=== PATIENT | male | born 1955 | race Caucasian/White ===

== ENCOUNTER → 2022-02-01 | Outpatient (CLI) | payer MEDICARE ==
[2022-02-01 14:42] LABS: Partial Thromboplastin Time 23.9 sec (22.0-30.0)
--- NOTE | 2022-02-01 15:23 | XR ---
EXAMINATION TYPE: XR chest 2V DATE OF EXAM: 02/01/2022 COMPARISON: Chest x-ray 02/17/2012 HISTORY: Z01.818 TECHNIQUE: Frontal and lateral views of the chest are obtained. FINDINGS: Question asymmetric increased apical density superolaterally on the left. There is no pleur al effusion or pneumothorax seen. The cardiac silhouette size is within normal limits. Increased alex ng volumes may be indicative of underlying COPD. Blunting of the costophrenic angles is thought likel y to be due to hyperinflation. Aorta is dense. There is a spinal curvature. There is thoracic spondyl osis. The osseous structures are intact. IMPRESSION: Question some abnormal density in the left upper lobe, patient is rotated. Consider ches t CT for better evaluation.
[2022-02-01 18:18] LABS: Appearance,Urine Clear (Clear); Bilirubin,Urine Negative (Negative); Blood,Urine Negative (Negative); Color,Urine Yellow (Yellow); Ketones,Urine Negative (Negative); Nitrite,Urine Negative (Negative); Specific Gravity,Urine 1.009 (1.001-1.030); Urobilinogen,Urine 0.2 (0.2,1.0)
[2022-02-01 18:26] LABS: Bacteria,Urine None Seen /HPF (None Seen)
[2022-02-01 18:51] LABS: African American GFR (CKD) 113.7 (60.0-200.0); Albumin 4.4 g/dL (3.8-4.9); Anion Gap 10.7 mmol/L (10.00-18.00); BUN/Creat Ratio 21.39 Ratio (12.00-20.00); Blood Urea Nitrogen 14.8 mg/dL (9.0-27.0); Calcium 9.7 mg/dL (8.7-10.3); Carbon Dioxide 23.7 mmol/L (20.0-27.5); Globulin 2.2 g/dL (1.6-3.3); Non-African American GFR(CKD) 98.1 (60.0-200.0); Potassium 5.2 mmol/L (3.5-5.5); Total Bilirubin 0.2 mg/dL (0.30-1.20); Total Protein 6.5 g/dL (6.2-8.2)
[2022-02-01 19:13] LABS: Basophils # (A) 0.04 X 10*3/uL (0.00-0.10); Basophils % (A) 0.6 %; Eosinophils # (A) 0.33 X 10*3/uL (0.04-0.35); Eosinophils % (A) 4.7 %; HCT 39.8 % (39.6-50.0); HGB 13.3 g/dL (13.0-17.0); Immature Grans, Automated 0.3 %; Lymphocytes # (A) 0.75 X 10*3/uL (0.90-5.00); Lymphocytes % (A) 10.6 %; MCH 32.1 pg (27.0-32.0); MCHC 33.4 g/dL (32.0-37.0); MCV 96.1 fL (80.0-97.0); Mean Platelet Volume 9.7 fL (9.5-12.2); Monocytes # (A) 0.51 X 10*3/uL (0.20-1.00); Monocytes % (A) 7.2 %; NRBC Per 100 WBC 0 /100 WBCS (0.0-0.0); Neutrophils % (A) 76.6 %; Platelet Count 316 X 10*3/uL (140-440); RBC 4.14 X 10*6/uL (4.40-5.60); RDW 12.8 % (11.5-14.5); WBC 7.05 X 10*3/uL (4.50-10.00)
[2022-02-01 22:25] LABS: INR 0.9 (<1.2); Prothrombin Time 9.7 sec (9.0-12.0)
== END | disposition home or self-care (01) ==
LOC: LABPAT 13:23
PROVIDERS: ATTEND Orthopaedic Surgery Orthopaedic Surgery of the Spine
DX: Z01.818 Encounter for other preprocedural examination (principal); I49.1 Atrial premature depolarization; M47.814 Spondylosis without myelopathy or radiculopathy, thoracic region
CPT/HCPCS: 71046; 80053; 81001; 85025; 85610; 85730; 93005

== ENCOUNTER 2022-02-09 06:52 | Observation (INO) | payer MEDICARE ==
[2022-02-04 10:57] VITALS: BMI 21.9
[~2022-02-09 06:52] MED LIST: ceFAZolin 1,000 MG in SODIUM CHLORIDE 0.9% IRRIGATIO 1,000 ML IRRIGATION PRN
[2022-02-09] MEDS ORDERED: ONDANSETRON 4 MG/2 ML VIAL IVP ONE (07:06)
[2022-02-09] MEDS ORDERED: DEXAMETHASONE SOD PHOSPHATE 4 MG/ML 1 ML VIAL IV ONE (07:06)
[2022-02-09] MEDS ORDERED: LIDOCAINE 1% (10MG/ML) FOR IV START INTRADERMA PRN (07:06)
[2022-02-09] MEDS: LACTATED RINGERS 1,000 ML IV SCH (07:15)
[2022-02-09 07:32] LABS: Glucose,Whole Blood 149 mg/dL (70-110)
[2022-02-09] MEDS ORDERED: GLYCOPYRROLATE 0.2 MG/ML 2 ML VIAL ONE (07:51)
[2022-02-09] MEDS ORDERED: PHENYLEPHRINE-0.9% NACL SYG 1,000 MCG/10 ML SYRINGE ONE (07:51)
[2022-02-09] MEDS ORDERED: MIDAZOLAM 2 MG/2 ML VIAL ONE (07:51)
[2022-02-09] MEDS ORDERED: LIDOCAINE 4% LTA KIT (4 ML) TOPICAL ONE (07:51)
[2022-02-09] MEDS ORDERED: SUCCINYLCHOLINE CHLORIDE 200 MG/10 ML VIAL IV ONE (07:51)
[2022-02-09] MEDS ORDERED: LIDOCAINE 2% INJ 20 MG/ML (2 ML VIAL) ONE (07:51)
[2022-02-09] MEDS ORDERED: KETAMINE 10 MG/ML 20 ML VIAL ONE (07:51)
[2022-02-09] MEDS ORDERED: NEOSTIGMINE 1 MG/ML 10 ML VIAL ONE (07:51)
[2022-02-09] MEDS ORDERED: ROCURONIUM 10 MG/ML (5 ML VIAL) IV ONE (07:51)
[2022-02-09] MEDS ORDERED: DEXAMETHASONE SOD PHOSPHATE 10 MG/ML 1 ML VIAL ONE (07:51)
[2022-02-09] MEDS ORDERED: fentaNYL (PF) 50 MCG/ML 2 ML AMP ONE (07:51)
[2022-02-09] MEDS ORDERED: ePHEDrine 50 MG/ML 1 ML VIAL ONE (07:51)
[2022-02-09] MEDS ORDERED: PROPOFOL 10 MG/ML 20 ML VIAL IV ONE (07:51)
[2022-02-09] MEDS ORDERED: BUPIVACAIN-EPI 0.25%-1:200,000 30 ML VIAL SQ ONE (08:26)
[2022-02-09] MEDS ORDERED: LACTATED RINGERS 1,000 ML IV ONE (09:09)
--- NOTE | 2022-02-09 09:18 | XR ---
Cervical spine HISTORY: Needle placement Single lateral view of the cervical spine were no comparisons Multilevel spondylosis is present, there is loss of disc height at intervertebral levels. Bone minera lization is reduced. Cervical vertebral bodies show preserved height, near anatomic alignment. Facet arthropathy changes present. There is a needle present within the C3-4 disc space. Endotracheal tube is in place. Entire cervical spine is not included on exam. IMPRESSION: Orthopedic localization.
[2022-02-09] MEDS: HYDROmorphone 0.5 MG/0.5 ML SYRINGE IVP PRN ×5 (10:15→23:19)
[2022-02-09] MEDS ORDERED: MAGNESIUM HYDROXIDE 2,400 MG/10 ML CUP PO PRN (10:23)
[2022-02-09] MEDS ORDERED: CYCLOBENZAPRINE 10 MG TAB PO PRN (10:23)
[2022-02-09] MEDS ORDERED: BENZOCAINE/MENTHOL LOZENG 1 EACH LOZENGE MUCOUS MEM PRN (10:23)
[2022-02-09] MEDS ORDERED: ONDANSETRON 4 MG/2 ML VIAL IVP PRN (10:23)
[2022-02-09] MEDS ORDERED: HYDROcodone/APAP 5-325MG 1 EACH TAB PO PRN (10:25)
--- NOTE | 2022-02-09 10:30 | P.OP ---
Date of Procedure: 02/09/22 Preoperative Diagnosis: Cervical myelopathy, severe cervical stenosis C3 4 C4 5, upper extremity weakness, upper extremity radiculopathy, gait abnormality, degenerative disc disease Postoperative Diagnosis: Same Anesthesia: GETA Pathology: none sent Condition: stable Disposition: PACU Description of Procedure: BRIEF OPERATIVE NOTE Preoperative Diagnosis:Cervical myelopathy, cervical myelomalacia, severe cervical stenosis C3 4 C4 5, upper extremity weakness, upper extremity radiculopathy, gait abnormality, degenerative disc disease Postoperative Diagnosis:Cervical myelopathy, cervical myelomalacia severe cervical stenosis C3 4 C4 5, upper extremity weakness, upper extremity radiculopathy, gait abnormality, degenerative disc disease Procedure: Anterior cervical decompression with discectomy and fusion C3 4 C4 5 Placement of interbody graft C3 4 C4 5 Application of anterior cervical plate C3 4 and 5 Surgeon: Dr. Key Director Learning: Jones Pathak is present throughout the entire the case persistence during positioning, dissection, exposure, visualization, and all crucial elements of the case as well as closure. Anesthesia: General anesthesia Estimated blood loss: Approximately 50 mL Complications: None apparent Components implanted: K2M Nobles anterior cervical plate system with a 40 mm plate and 6 screws measuring 14 mm, with Vikos interbody bone grafts and 1 mL DBX bone putty Disposition: To recovery room in good stable condition. OPERATIVE INDICATIONS The patient has had long-standing issues in their neck and upper extremities. He's been having worsening symptoms in the past several months. The patient has been through conservative treatment. We saw him and felt that he had evidence of cervical myelopathy with his severe cervical stenosis primarily stemming from the changes at C34 and C4 5. I felt that he could have some benefit with surgical intervention for his cervical spine to decompress his spinal cord and stabilize his vertebrae. He has multiple levels of degenerative changes but I felt that the most severe issues stem from C3 4 and C4 5. We discussed various treatment options including surgery, and the patient wishes to proceed with surgery We discussed the risk, patient's alternatives and benefits of surgery including but not limited to, risk of bleeding risk of infection, risk of need for further surgery, risk of decreased, loss of motion, muscle function, malunion nonunion, hardware failure, nerve damage, paralysis, heart attack, and . OPERATIVE SUMMARY After discussing all the risks, patient alternatives and benefits at length, the patient elected to proceed with surgical intervention, signed informed consent, and presented for their procedure. The patient was seen and examined in the preoperative holding area and the surgical site was marked. The patient was given antibiotics and brought to the operating room. The patient was positioned on the operating room table in a supine position being careful to pad any bony prominences and pressure points. The patient was sedated and intubated by anesthesia in standard fashion. Once the airway and C- spine were stabilized the patient's arms were padded and tucked at her side, with her shoulders gently taped. The head was placed in a donut pad with the neck in good neutral alignment and position. We were careful to maintain the patient's cervical spine and good neutral alignment and position throughout. The patient was prepped and draped in a normal standard fashion. An appropriate timeout and keystone protocol performed. We were able to proceed with the surgery. The local wound area was infiltrated with local anesthetic. An incision was made transversely approximately 2-1/2 cm over the appropriate levels at C4. Dissection was taken down subcutaneously to the level of the platysma which was split in line with its fibers. Dissection was taken with a carotid approach, with the trachea and esophagus medial and the carotid sheath laterally. We dissected down to the anterior surface of the vertebral bodies. Intraoperative x-ray was taken which showed a marker at the appropriate level of C3 4. With the appropriate level positively confirmed, we were able to proceed with discectomy at the appropriate levels starting at C3 4 and then moving C4 5. All of the operative levels were exposed appropriately. The patient had all their twitches back, and there was no evidence of recurrent laryngeal issue. The wound was copiously irrigated and suctioned dry as had been done periodically throughout the case. At the appropriate level/levels, starting at C3 4 and then moving C4 5 I established an annulotomy with an 11 blade scalpel. A discectomy was performed with a combination of pituitary rongeurs, curettes, a high-speed bur, and Kerrison rongeurs. The posterior longitudinal ligament was taken down as were any posterior osteophytes. This gave good central and bilateral foraminal decompression. There is no evidence of any dural tear or leak. The endplates were prepared with a high-speed bur. With the endplates in good parallel position, I was able to size for the appropriate size interbody graft. The wound was irrigated and suctioned dry the graft was prepared and malleted into position. It had good alignment and position with the anterior surface flush with the anterior surface of the vertebral bodies. This was done similarly the appropriate levels first at C3 4 and then at C4 5. With the grafts intact, I was able to measure and contour and appropriate sized plate. The plate was positioned at the midline over the appropriate levels at C3 4 and 5. Screw holes were established with a hand drill and drill guide. Screws were placed in good alignment and position with excellent bony purchase. They were seated under the locking device. The construct was checked and found to be stable. Intraoperative x-ray was taken which showed good alignment and position of the implants at the appropriate levels. There was no evidence of any dural tear or leak. Good hemostasis was maintained. The wound was copiously irrigated and suctioned dry as had been done periodically throughout the case. The platysma was closed with absorbable suture. The subcutaneous tissue was closed. The subcuticular tissue was closed with absorbable suture. The wound was cleaned and dried and dressed appropriately. A soft cervical collar was placed appropriately. The patient was woken up by anesthesia, extubated, transferred back gently to their hospital bed and brought to the recovery room in good stable condition. The patient will be admitted to the hospital for appropriate postoperative care, medical management and monitoring. We will continue to follow them closely about the postoperative course.
--- NOTE | 2022-02-09 13:56 | XR ---
Cervical spine HISTORY: Hardware placement Single lateral view the cervical spine submitted, and correlated to prior exam 02/09/2022 earlier time There is interval anterior cervical fusion and discectomy at C3-C5. Intervertebral spacing blocks are present. Lower cervical spine not well seen due to overlying soft tissue. Endotracheal tube is in pl cesia. There are overlying artifacts. Difficult to state with certainty as to where the placement of th e screws is at C5 possibly at or towards the disc at C5-6. Facet arthropathy changes are present. The re is satisfactory alignment. IMPRESSION: Orthopedic follow-up as described, CT could be performed to assess for screw placement as indicated
[2022-02-09] MEDS ORDERED: SODIUM CHLORIDE 0.9% 1,000 ML IV ONE (14:00)
[2022-02-09] MEDS: SODIUM CHLORIDE 0.9% 1,000 ML IV SCH (14:32)
[2022-02-09] MEDS: IPRATROPIUM-ALBUTEROL 3 ML NEB INHALATION SCH ×3 (14:33→20:17)
[2022-02-09] MEDS: FLUTICASONE 110 MCG INHALER INHALATION SCH (20:17)
[2022-02-09] MEDS ORDERED: ATORVASTATIN 10 MG TAB PO SCH (21:00)
[2022-02-09] MEDS: allopurinoL 100 MG TAB PO SCH (21:37)
[2022-02-10] MEDS: HYDROcodone/APAP 5-325MG 1 EACH TAB PO PRN ×2 (01:36→13:42)
[2022-02-10] MEDS: HYDROmorphone 0.5 MG/0.5 ML SYRINGE IVP PRN (03:29)
[2022-02-10] MEDS: SODIUM CHLORIDE 0.9% 1,000 ML IV SCH (03:33)
[2022-02-10] MEDS: FLUTICASONE 110 MCG INHALER INHALATION SCH (07:51)
[2022-02-10] MEDS: IPRATROPIUM-ALBUTEROL 3 ML NEB INHALATION SCH ×2 (07:51→11:19)
[2022-02-10] MEDS ORDERED: lisinopriL 10 MG TAB PO SCH (09:00)
[2022-02-10] MEDS ORDERED: amLODIPine 10 MG TAB PO SCH (09:00)
[2022-02-10] MEDS ORDERED: VIT A,C & E-LUTEIN-MINERALS 1 EACH TAB PO SCH (09:00)
[2022-02-10] MEDS ORDERED: FERROUS SULFATE 325 MG TAB PO SCH (09:00)
[2022-02-10] MEDS: allopurinoL 100 MG TAB PO SCH (10:44)
[2022-02-10 11:28] VITALS: PULSE 76
--- NOTE | 2022-02-10 11:52 | P.DS ---
Providers Date of admission: 02/10/22 07:37 Attending physician: Omari Key Primary care physician: Osiris Garcia [facility] Course: The patient presented on the day of admission as per their operative note. He had severe cervical stenosis with cervical myelopathy at cervical spine but feels that his surgery has helped his pain and some of his function in his arms already. He has been able to tolerate soft diet and he has been mobile in his room and voiding freely. Physical Exam The incision site is clean dry and intact. There is no erythema no drainage. There is no purulence no evidence of infection. His neck is soft and supple there is some bruising. Abdomen soft and nontender. Chest has good excursion with deep inspiration and expiration. The patient has active and passive range of motion intact at the upper and lower extremities. There is no acute change in neurologic status. He is able to move his hands to have some global weakness in his upper extremities Hospital Course Postoperative day #1 status was anterior cervical discectomy with decompression and fusion C34 C4 5 for his cervical myelopathy with severe cervical stenosis and upper extremity weakness. The patient feels he is making good progress and has some improved strength and function in his arms already. The patient has been making good progress postoperatively. They have completed the prophylactic antibiotics without any signs or symptoms of infection. The patient has been able to advance their diet, and is tolerating diet adequately. The pain was initially controlled with IV medications and is now controlled appropriately with oral medications. The patient has been able to increase their mobilization. The patient has progressed appropriately. I think they are in good stable condition for discharge today. They will be sent home with appropriate prescriptions. I answered their questions to the best of my ability in a language that they can understand and they are agreeable with the plan. They will follow up as directed in approximately 2 weeks or sooner if he is having problems. Patient Condition at Discharge: Good Plan - Discharge Summary Discharge Rx Participant: Yes New Discharge Prescriptions: New HYDROcodone/APAP 5-325MG [[place] 5-325] 1 tab PO Q6HR PRN 3 Days #28 tab PRN Reason: Pain No Action allopurinoL [Zyloprim] 100 mg PO BID Atorvastatin [Lipitor] 10 mg PO HS Iron 25 mg PO DAILY amLODIPine [Norvasc] 10 mg PO DAILY Ibuprofen [Motrin] 800 mg PO Q8H PRN PRN Reason: Pain Vit C/E/Zn/Coppr/Lutein/Zeaxan [Preservision Areds 2 Softgel] 1 each PO DAILY Fluticasone Propionate 110 Mcg [Flovent 110 Mcg Inhaler] 2 puff INHALATION BID Ipratropium-Albuterol Nebulize [Duoneb 0.5 mg-3 mg/3 ml Soln] 3 ml INHALATION QID Hydrocodone/Acetaminophen [Hydrocodon-Acetaminophen 5-325] 1 each PO Q8HR PRN PRN Reason: Pain lisinopriL [Zestril] 10 mg PO DAILY Discharge Medication List Atorvastatin [Lipitor] 10 mg PO HS 02/04/22 [History] Fluticasone Propionate 110 Mcg [Flovent 110 Mcg Inhaler] 2 puff INHALATION BID 02/04/22 [History] Hydrocodone/Acetaminophen [Hydrocodon-Acetaminophen 5-325] 1 each PO Q8HR PRN 02/04/22 [History] Ibuprofen [Motrin] 800 mg PO Q8H PRN 02/04/22 [History] Ipratropium-Albuterol Nebulize [Duoneb 0.5 mg-3 mg/3 ml Soln] 3 ml INHALATION QID 02/04/22 [History] Iron 25 mg PO DAILY 02/04/22 [History] Vit C/E/Zn/Coppr/Lutein/Zeaxan [Preservision Areds 2 Softgel] 1 each PO DAILY 02/04/22 [History] allopurinoL [Zyloprim] 100 mg PO BID 02/04/22 [History] amLODIPine [Norvasc] 10 mg PO DAILY 02/04/22 [History] lisinopriL [Zestril] 10 mg PO DAILY 02/04/22 [History] HYDROcodone/APAP 5-325MG [[place] 5-325] 1 tab PO Q6HR PRN 3 Days #28 tab 02/10/22 [Rx] Follow up Appointment(s)/Referral(s): Omari Key DO [Doctor of Osteopathic Medicine] - 2 Weeks Discharge Disposition: HOME SELF-CARE
[2022-02-10] MEDS: LACTATED RINGERS 1,000 ML IV SCH (12:33)
[2022-02-10 14:29] VITALS: BP 128/69; RESP 16; TEMP 98.4
== END 2022-02-10 14:38 | disposition home or self-care (01) ==
LOC: OR 06:52 → 4SSUR 09:59 → OR 02-10 07:37
PROVIDERS: ADMIT Orthopaedic Surgery Orthopaedic Surgery of the Spine; ATTEND Orthopaedic Surgery Orthopaedic Surgery of the Spine
DX: M48.02 Spinal stenosis, cervical region (principal); G95.89 Other specified diseases of spinal cord; R53.1 Weakness; R26.9 Unspecified abnormalities of gait and mobility
CPT/HCPCS: 94640 ×4; 86900; 86901; 84132; 86850; 72020; 22551; 22552; 22845; 20931; G0378; C1713 ×2; C1762 ×2; J2250; J0330; J1100; J2710; J0690 ×2; J2405; J3010; J2370; J2704; J1170 ×2; J2001

== ENCOUNTER → 2022-04-09 | Outpatient (CLI) | payer MEDICARE ==
--- NOTE | 2022-04-09 13:18 | MR ---
EXAMINATION TYPE: MR brain wo/w con DATE OF EXAM: 04/09/2022 COMPARISON: PET/CT 02/02/2022 HISTORY: Lung cancer. TECHNIQUE: Multiplanar, multisequence images of the brain and brainstem is performed without and with IV contras t, utilizing 6 mL intravenous Gadavist . FINDINGS: Diffusion weighted images demonstrate no evidence of a recent infarct or other diffusion ab normality. There is no extra-axial fluid collection. There is scattered white matter changes through out the deep white matter. Significant white matter signal abnormality. The ventricular system and c isternal spaces are normal in size and appearance. The brain volume is age appropriate. Midline structures demonstrate normal morphology. The craniocervical junction appears within normal limits. Post contrast images demonstrate no abnormal enhancement. The dural venous sinuses appear pa tent. The visualized sinuses and straight mild mucosal thickening most pronounced in the left maxilla ry sinus.. Bilateral aphakia. IMPRESSION: 1. No evidence of intracranial mass, acute/subacute infarct, or abnormal enhancement. No evidence of metastatic disease. 2. Nonspecific white matter changes, likely related to small vessel ischemic disease
== END | disposition home or self-care (01) ==
LOC: RADMRIMAIN 12:13
PROVIDERS: ATTEND Internal Medicine
DX: R91.1 Solitary pulmonary nodule (principal)
CPT/HCPCS: 70553; A9585

== ENCOUNTER → 2022-04-25 | Outpatient (CLI) | payer MEDICARE ==
[2022-04-25 13:50] LABS: INR 0.9 (<1.2); Partial Thromboplastin Time 25.4 sec (22.0-30.0); Prothrombin Time 9.6 sec (9.0-12.0)
[2022-04-25 19:03] LABS: Basophils # (A) 0.08 X 10*3/uL (0.00-0.10); Basophils % (A) 0.8 %; Eosinophils # (A) 0.41 X 10*3/uL (0.04-0.35); Eosinophils % (A) 4.1 %; HCT 36.9 % (39.6-50.0); HGB 12.5 g/dL (13.0-17.0); Immature Grans, Automated 0.4 %; Lymphocytes # (A) 1.23 X 10*3/uL (0.90-5.00); Lymphocytes % (A) 12.3 %; MCH 32.2 pg (27.0-32.0); MCHC 33.9 g/dL (32.0-37.0); MCV 95.1 fL (80.0-97.0); Mean Platelet Volume 9.8 fL (9.5-12.2); Monocytes # (A) 0.58 X 10*3/uL (0.20-1.00); Monocytes % (A) 5.8 %; NRBC Per 100 WBC 0 /100 WBCS (0.0-0.0); Neutrophils # (A) 7.64 X 10*3/uL (1.80-7.70); Neutrophils % (A) 76.6 %; Platelet Count 356 X 10*3/uL (140-440); RBC 3.88 X 10*6/uL (4.40-5.60); RDW 13.7 % (11.5-14.5); WBC 9.98 X 10*3/uL (4.50-10.00)
[2022-04-25 19:09] LABS: African American GFR (CKD) 101.4 (60.0-200.0); Anion Gap 9.5 mmol/L (10.00-18.00); Blood Urea Nitrogen 22.8 mg/dL (9.0-27.0); Carbon Dioxide 21.7 mmol/L (20.0-27.5); Non-African American GFR(CKD) 87.5 (60.0-200.0); Potassium 5.2 mmol/L (3.5-5.5)
== END | disposition home or self-care (01) ==
LOC: LABPAT 12:49
PROVIDERS: ATTEND Thoracic Surgery (Cardiothoracic Vascular Surgery)
DX: Z01.812 Encounter for preprocedural laboratory examination (principal); R91.1 Solitary pulmonary nodule; R58 Hemorrhage, not elsewhere classified; E86.0 Dehydration; I10 Essential (primary) hypertension; N28.9 Disorder of kidney and ureter, unspecified
CPT/HCPCS: 80051; 82565; 82947; 84520; 85025; 85610; 85730; 86850; 86900; 86901

== ENCOUNTER 2022-04-28 05:53 | Inpatient (IN) | payer MEDICARE ==
[2022-04-28] MEDS ORDERED: LIDOCAINE 1% (10MG/ML) FOR IV START INTRADERMA PRN (05:58)
[2022-04-28] MEDS ORDERED: ONDANSETRON 4 MG/2 ML VIAL IVP ONE (05:58)
[2022-04-28] MEDS ORDERED: DEXAMETHASONE SOD PHOSPHATE 4 MG/ML 1 ML VIAL IV ONE (05:58)
[2022-04-28] MEDS ORDERED: LACTATED RINGERS 1,000 ML IV SCH (05:58)
[2022-04-28] MEDS ORDERED: MIDAZOLAM 2 MG/2 ML VIAL IV PRN (05:58)
[2022-04-28 06:36] LABS: Glucose,Whole Blood 111 mg/dL (70-110)
[2022-04-28] MEDS ORDERED: LACTATED RINGERS 1,000 ML IV ONE ×2 (06:39→06:40)
[2022-04-28] MEDS ORDERED: ROPIVACAINE 5 MG/ML 30 ML VIAL ONE (07:45)
[2022-04-28] MEDS ORDERED: MIDAZOLAM 2 MG/2 ML VIAL ONE (07:45)
[2022-04-28] MEDS ORDERED: PROPOFOL 10 MG/ML 20 ML VIAL IV ONE (07:45)
[2022-04-28] MEDS ORDERED: fentaNYL (PF) 50 MCG/ML 2 ML AMP ONE (07:45)
[2022-04-28] MEDS ORDERED: HYDROmorphone (PF) 1 MG/ML ONE (07:45)
[2022-04-28] MEDS ORDERED: ROCURONIUM 10 MG/ML (5 ML VIAL) IV ONE (07:45)
[2022-04-28] MEDS ORDERED: PHENYLEPHRINE-0.9% NACL SYG 1,000 MCG/10 ML SYRINGE ONE (07:45)
[2022-04-28] MEDS ORDERED: SODIUM CHLORIDE 0.9% (PF) 10 ML VIAL ONE (07:45)
[2022-04-28] MEDS ORDERED: LIDOCAINE 2% INJ 20 MG/ML (2 ML VIAL) ONE (07:45)
[2022-04-28] MEDS ORDERED: SUCCINYLCHOLINE CHLORIDE 200 MG/10 ML VIAL IV ONE (07:45)
[2022-04-28] MEDS ORDERED: NEOSTIGMINE 1 MG/ML 10 ML VIAL ONE (07:45)
[2022-04-28] MEDS ORDERED: GLYCOPYRROLATE 0.2 MG/ML 2 ML VIAL ONE (07:45)
[2022-04-28] MEDS ORDERED: DEXAMETHASONE SOD PHOSPHATE 10 MG/ML 1 ML VIAL ONE (07:45)
[2022-04-28] MEDS ORDERED: ePHEDrine 50 MG/ML 1 ML VIAL ONE (07:45)
[2022-04-28] MEDS ORDERED: BUPIVACAINE (PF) 0.5% 30 ML VIAL SQ ONE ×2 (07:52)
[2022-04-28] MEDS ORDERED: ALBUTEROL NEBULIZED 2.5 MG/3 ML INHALATION ONE (10:02)
--- NOTE | 2022-04-28 10:06 | P.OP ---
Date of Procedure: 04/28/22 Preoperative Diagnosis: Left upper lobe lung nodule Postoperative Diagnosis: Non-small cell lung cancer of the left upper lobe Procedure(s) Performed: 1. Bronchoscopy 2. Video assisted left thorascopic surgery, wedge resection of upper lobe nodule 3. Mediastinal lymph node dissection 4. Intercostal nerve block with 0.5% marcaine with epinephrine at 3 levels Implants: 28F Left chest tube Anesthesia: DAYAMIA Surgeon: Ankur Boothe Estimated Blood Loss (ml): 50 Pathology: other Condition: stable Disposition: PACU Indications for Procedure: This patient is a 66 y/o M with an extensive smoking history who had a lung cancer screening CT performed by PCP that revealed a CHRISTIANO cavitary lesion measuring 1.7x1.1cm which was also PET avid. He did have a 1.6cm soft tissue density that was PET avid on the left chest wall near the trapezius which was further investigating with ultrasound and thought to be reactive and non- contributory to his left upper lobe nodule. Nonetheless, given his very poor PFT's, surgical wedge resection with lymph node dissection was offered as diagnostic and therapeutic given high chance of malignancy. He was in agreement and wanted to proceed. Operative Findings: Left upper lobe nodule wedged with good >2cm margins. Frozen section positive for non-small cell carcinoma. Level 3L, 10L and 6L lymph nodes sent for permanent section. Description of Procedure: THe patient underwent right radial arterial line placement in the pre-operative suite. He was brought back to the operating room and placed in the supine position. He was intubated with a 39F left sided double lumen tube and he was positioned in the right lateral decubitus position and all pressure points were padded. His left chest was prepped and draped in the usual sterile fashion and a time-out was performed and antibiotics were given. The left lung was isolated. I made a 2cm incision near the tip of the scapula in the 7th intercostal space posterior axillary line. I gained entry into the chest under direct vision. I then performed an intercostal nerve block in the 6th, 7th and 9th intercostal spaces with 0.5% marcaine. I made two additional two cm incisions in the 6th and 9th intercostal spaces anterior and mid axillary lines respectively. The left upper lobe nodule was easily identifiable. This was wedged out using multiple firings of the endo NITIN, placed in a retrieval bag, and sent to pathology for frozen section. Next I opened up the posterior mediastinal pleura using the harmonic scalpel. The left mainstem and upper lobe bronchus was identified and a level 10 lymph node was harvested here. This reflection was opened up towards the AP window. There was no large lymph node identified here but upon further blunt dissection within the deep AP window I was able to find a small level 6 l ymph node which was harvested and sent to pathology. Lastly the superior mediastinal pleura was opened up and a level 3 node was harvested above the aorta. The left chest was irrigated and hemostasis was secured. A 28F chest tube was inserted via the inferior incision and the left chest was inflated and ventilated. The incisions were closed in layers of vicryl and glue. The chest tube was anchored to the skin using an ethibond suture. The patient was awaken from anesthesia, extubated and transferred to recovery in stable condition.
--- NOTE | 2022-04-28 10:53 | XR ---
EXAMINATION TYPE: XR chest 1V portable DATE OF EXAM: 04/28/2022 COMPARISON: Chest x-ray 02/01/2022 HISTORY: Post VATS him a chest tube TECHNIQUE: Single frontal view of the chest is obtained. FINDINGS: Left-sided chest tube has been placed in the interval. Abnormal increased attenuation pres ent in the left upper lobe is likely postprocedural. No evident pleural effusion. Cardiac mediastinal silhouette is stable. Aorta is dense. Postop changes are noted to the cervical spine. Probable inter stitial changes present at the lung bases. There is a spinal curvature. IMPRESSION: Postop findings.
[2022-04-28 11:42] LABS: Glucose,Whole Blood 157 mg/dL (70-110)
[2022-04-28] MEDS: HYDROmorphone 0.5 MG/0.5 ML SYRINGE IVP PRN ×2 (12:09→13:22)
[2022-04-28] MEDS ORDERED: ONDANSETRON 4 MG/2 ML VIAL IVP PRN (13:32)
[2022-04-28] MEDS ORDERED: DEXTROSE 5%-0.45% NACL 1,000 ML IV SCH (13:32)
--- NOTE | 2022-04-28 14:06 | P.CNPUL ---
History of Present Illness Consult date: 04/28/22 Requesting physician: Ankur Boothe Reason for consult: lung mass Chief complaint: Left upper lobe lung mass History of present illness: This is a very pleasant 66-year-old male patient who has a history of cervical neck pain and subsequent surgery in February 2022, hyperlipidemia, hypertension, chronic tobacco dependence of 50 years, chronic obstructive pulmonary disease with an FEV1 value of 45% of predicted. He is also found to have a left upper lobe cavitary nodule measuring 17 by 11 mm. a PET scan dated 02/02/2022 revealed necrotic neoplastic mass in the left upper lobe with an SUV level is 6.3 as well as a neoplastic nodule in the soft tissue of the left trapezius muscle medial to the left scaphoid with an SUV level of 6.3. He was seen and evaluated by CT services who brought the patient in today electively for a video-assisted left thorascopic wedge resection of the upper lobe nodule. Mediastinal lymph node dissection. Postop diagnosis of his non-small cell lung cancer. He is seen today in consultation on the selective care unit. Currently resting fairly comfortably in bed. Awake and alert. He is maintaining good O2 saturations in the upper 90s on 2 L/m per nasal cannula. Left-sided chest tube in place her chest x-ray reviewed. No significant pneumothorax. Blood glucose 157. He has been initiated on DuoNeb inhalations. Heparin for DVT prophylaxis. D5 and h bruna-normal saline at 50 MLS per hour. Antibiotics in the form of cefazolin. Educated regarding the use of the incentive spirometer. Review of Systems REVIEW OF SYSTEMS: CONSTITUTIONAL: Denies any recent significant weight loss or weight gain. EYES: Denies change in vision. EARS, NOSE, MOUTH, THROAT: Denies headaches, denies sore throat. CARDIOVASCULAR: Denies chest pain, palpitations or syncopal episodes. RESPIRATORY: Denies shortness of breath, cough, congestion or hemoptysis. GASTROINTESTINAL: Denies change in appetite, denies abdominal pain GENITOURINARY: Denies hematuria, denies infections. MUSKULOSKELETAL: Denies pain, denies swelling. INTEGUMENTARY: Denies rash, denies eczema. NEUROLOGICAL: Denies recent memory loss, no recent seizure activity. PSYCHIATRIC: Denies anxiety, denies depression. HEMATOLOGIC/LYMPHATIC: Denies anemia, denies enlarged lymph nodes. Past Medical History Past Medical History: COPD, Diabetes Mellitus, Hyperlipidemia, Hypertension, Musculoskeletal Disorder, Osteoarthritis (OA) Additional Past Medical History / Comment(s): left arm numbness much improved since neck surg., gout, back pain, anemia, "pre-diabetic"-watching diet. History of Any Multi-Drug Resistant Organisms: None Reported Past Surgical History: Joint Replacement, Orthopedic Surgery Additional Past Surgical History / Comment(s): surgery right foot, meaghan hip replacements, herniated umbilicus which strangulated bowel., cataracts removed, cervical fusion 02-09-22 Past Anesthesia/Blood Transfusion Reactions: No Reported Reaction Smoking Status: Former smoker - Past Family History Mother Family Medical History: No Reported History Medications and Allergies Home Medications Medication Instructions Recorded Confirmed Type Atorvastatin [Lipitor] 10 mg PO HS 02/04/22 04/28/22 History Fluticasone Propionate 110 Mcg 2 puff INHALATION BID 02/04/22 04/28/22 History [Flovent 110 Mcg Inhaler] Ipratropium-Albuterol Nebulize 3 ml INHALATION QID 02/04/22 04/28/22 History [Duoneb 0.5 mg-3 mg/3 ml Soln] Iron 25 mg PO DAILY 02/04/22 04/28/22 History Vit C/E/Zn/Coppr/Lutein/Zeaxan 1 each PO DAILY 02/04/22 04/28/22 History [Preservision Areds 2 Softgel] allopurinoL [Zyloprim] 100 mg PO BID 02/04/22 04/28/22 History amLODIPine [Norvasc] 10 mg PO DAILY 02/04/22 04/28/22 History lisinopriL [Zestril] 10 mg PO DAILY 02/04/22 04/28/22 History Allergies Allergy/AdvReac Type Severity Reaction Status Date / Time No Known Allergies Allergy Verified 04/28/22 06:26 Physical Exam Vitals: Vital Signs Temp Pulse Pulse Resp BP BP Pulse Ox 04/28/22 13:30 61 16 110/64 98 04/28/22 13:00 58 L 16 112/61 99 04/28/22 12:32 61 16 109/62 99 04/28/22 12:16 60 16 104/55 99 04/28/22 12:00 60 16 111/60 99 04/28/22 11:45 61 16 108/57 100 04/28/22 11:30 58 L 16 109/59 98 04/28/22 11:15 63 16 106/61 98 04/28/22 10:45 60 16 103/57 100 04/28/22 10:30 58 L 16 107/60 100 04/28/22 10:15 60 16 102/56 100 04/28/22 10:00 96.9 F L 67 16 109/57 100 04/28/22 07:02 53 L 16 105/52 99 04/28/22 06:28 97.6 F 65 17 160/72 97 Intake and Output 04/27/22 04/28/22 04/28/22 22:59 06:59 14:59 Intake Total 1450 Output Total 20 Balance 1430 Intake: IV 1450 Output: Estimated Blood Loss 20 Other: Weight 59.1 kg GENERAL EXAM: Alert, very pleasant 66-year-old gentleman, on 2 L nasal cannula, fairly comfortable in no apparent distress. HEAD: Normocephalic. EYES: Normal reaction of pupils, equal size. NOSE: Clear with pink turbinates. THROAT: No erythema or exudates. NECK: No masses, no JVD. CHEST: No chest wall deformity. Left sided chest tube in place. Surgical in cisions clean dry well approximated LUNGS: Equal air entry with end expiratory wheeze, few scattered rhonchi, diminished. CVS: S1 and S2 normal with no audible murmur, regular rhythm. ABDOMEN: No hepatosplenomegaly, normal bowel sounds, no guarding or rigidity. SPINE: No scoliosis or deformity SKIN: No rashes CENTRAL NERVOUS SYSTEM: No focal deficits, tone is normal in all 4 extremities. EXTREMITIES: There is no peripheral edema. No clubbing, no cyanosis. Peripheral pulses are intact. Results - Laboratory Findings Abnormal lab findings: Abnormal Labs 04/28/22 04/28/22 06:34 11:40 POC Glucose (mg/dL) 111 H 157 H - Diagnostic Findings Chest x-ray: image reviewed Assessment and Plan Assessment: Left upper lobe necrotic cavitating mass measuring 1.3 x 2.2 x 1.5 cm as well as a 1.6 cm soft tissue density in the posterior back under the left trapezius muscle. Status post left upper lobe mass wedge resection positive for non-small cell carcinoma. Postoperative day #0. Left-sided chest tube in place. Acute hypoxemic respiratory failure secondary to above, expected outcome of surgery. Currently on 2 L nasal cannula Chronic obstructive pulmonary disease with an FEV1 value 35% of predicted Chronic tobacco dependence of 50 years Hypertension Hyperlipidemia Cervical neck pain with subsequent surgery in February 2022 Plan: The patient was seen and evaluated Chest x-ray, medications and labs reviewed Continue bronchodilators Encourage the increased use of the incentive spirometer Educated regarding the importance of complete smoking cessation Titrate the FiO2 as tolerated Increase his activity as tolerated Follow-up chest x-ray in the a.m. We will continue to follow and make further recommendations based on his clinical status I have personally seen and examined the patient, performed the documentation and the assessment and plan as written. Number of minutes spent on the visit: 20.
[2022-04-28] MEDS: KETOROLAC 15 MG/ML 1 ML VIAL IVP SCH ×3 (14:28→22:59)
[2022-04-28] MEDS: IPRATROPIUM-ALBUTEROL 3 ML NEB INHALATION SCH ×3 (15:51→21:01)
[2022-04-28] MEDS: HEPARIN SODIUM,PORCINE/PF 5,000 UNIT/0.5 ML SYRINGE SQ SCH ×2 (16:47→22:59)
--- NOTE | 2022-04-28 19:48 | P.ANPRN ---
Procedure Note - Anesthesia - Nerve Block Performed Left Erector Spinae Single Time Out Performed: Yes Date of Procedure: 04/28/22 Procedure Start Time: 06:56 Procedure Stop Time: 06:59 Location of Patient: PreOp Indication: Acute Post-Operative Pain, Requested by Surgeon Sedation Type: Sedate with meaningful contact maintained Preparation: Sterile Prep Position: Prone Needle Types: Pajunk Needle Gauge: 21 Ultrasound used to visualize needle placement: Yes Ultrasound used to observe medication spread: Yes Blood Aspirated: No Pain Paresthesia on Injection Noted: No Resistance on Injection: Normal Image Stored and Saved: Yes Events: Uneventful and Well Tolerated (Ropivacaine 0.5% 15 mL plus normal saline 10 mL plus dexamethasone 4 mg)
[2022-04-28] MEDS: ATORVASTATIN 10 MG TAB PO SCH (20:20)
[2022-04-28] MEDS: allopurinoL 100 MG TAB PO SCH (20:20)
[2022-04-28] MEDS: FLUTICASONE 110 MCG INHALER INHALATION SCH (21:01)
[2022-04-29] MEDS: traMADol 50 MG TAB PO PRN (02:00)
[2022-04-29] MEDS: IPRATROPIUM-ALBUTEROL 3 ML NEB IH PRN (02:09)
[2022-04-29] MEDS: PANTOPRAZOLE 40 MG TABLET PO SCH (05:59)
[2022-04-29] MEDS: KETOROLAC 15 MG/ML 1 ML VIAL IVP SCH ×3 (05:59→17:44)
--- NOTE | 2022-04-29 07:36 | XR ---
EXAMINATION TYPE: XR chest 2V DATE OF EXAM: 04/29/2022 6:27 AM COMPARISON: Chest radiograph from one day prior. TECHNIQUE: XR chest 2V Frontal and lateral views of the chest. CLINICAL INDICATION:Male, 66 years old with history of post VATS; FINDINGS: Lungs/Pleura: There is no evidence of pleural effusion. New Scattered airspace opacities are present. Pulmonary vascularity: Unremarkable. Heart/mediastinum: Cardiomediastinal silhouette is unremarkable. Musculoskeletal: No acute osseous pathology. There is fixation hardware in the lower cervical spine. Lines/Tubes: Left thoracotomy tube is present with evidence of pneumothorax on today's exam. IMPRESSION: 1. Left thoracotomy with new suspected pneumothorax. 2. New Scattered haziness to the lungs could relate to postsurgical atelectasis versus developing ai rspace disease. Attention on follow-up imaging.
[2022-04-29] MEDS: IPRATROPIUM-ALBUTEROL 3 ML NEB INHALATION SCH ×4 (07:58→20:22)
[2022-04-29 07:59] LABS: Basophils % (A) 0 %; Eosinophils % (A) 0 %; HGB 10.2 gm/dL (13.0-17.5); Lymphocytes # (A) 0.7 k/uL (1.0-4.8); Lymphocytes % (A) 5 %; MCH 32.9 pg (25.0-35.0); MCHC 34.1 g/dL (31.0-37.0); MCV 96.3 fL (80.0-100.0); Mean Platelet Volume 7.9; Monocytes % (A) 6 %; Neutrophils # (A) 13.5 k/uL (1.3-7.7); Neutrophils % (A) 88 %; Platelet Count 269 k/uL (150-450); RBC 3.11 m/uL (4.30-5.90); RDW 13.4 % (11.5-15.5); WBC 15.3 k/uL (3.8-10.6)
[2022-04-29 08:13] LABS: African American GFR (CKD) >90 (>60 ml/min/1.73 sqM); Anion Gap 8 mmol/L; Blood Urea Nitrogen 24 mg/dL (9-20); Calcium 9.1 mg/dL (8.4-10.2); Carbon Dioxide 20 mmol/L (22-30); Chloride 105 mmol/L (98-107); Glucose 111 mg/dL (74-99); Non-African American GFR(CKD) >90 (>60 ml/min/1.73 sqM); Potassium 4.9 mmol/L (3.5-5.1); Sodium 133 mmol/L (137-145)
--- NOTE | 2022-04-29 08:39 | P.PN ---
Subjective Progress Note Date: 04/29/22 Principal diagnosis: Non-small cell lung cancer of the left upper lobe. Past medical history significant for hypertension, hyperlipidemia, chronic tobacco dependence of 50 years, severe chronic obstructive pulmonary disease with a preoperative FEV1 value of 47% of predicted, gout and osteoarthritis. POD #1 bronchoscopy, video-assisted left thoracoscopic surgery, wedge resection of left upper lobe nodule, mediastinal lymph node dissection and intercostal nerve block with 0.5% Marcaine with epinephrine at 3 levels. The patient was seen and examined in follow-up today 04/29/2022 at his bedside on the cardiac stepdown unit. He denies any complaints of shortness of breath at this time, although is complaining of some surgical type pain to his chest tube insertion site with taking a deep breath. He currently rates his pain 3 out of 10 on the pain scale. Oxygen saturation are 92 percent on room air and he is achieving 1250 mL on his incentive spirometry with encouragement. Left pleural chest tube remains in place, intermittent air leak is present. The chest tube was placed to low continuous wall suction this morning as his chest x-ray showed a small left apical pneumothorax. The chest tube drained 75 mL of thin serosanguineous drainage since surgery. He reports he has been up ambulating in his room without difficulty and standby assistance from nursing staff. He remains hemodynamically stable and is currently on no inotropic or pressor support. Remote telemetry showing normal sinus rhythm heart rate 76 BPM. He has been afebrile in the last 24 hours. Laboratory results today showed a WBC count of 15.3, hemoglobin 10.2, hematocrit 30.0, platelets 269, sodium 133, potassium 4.9, CO2 20, BUN 24, creatinine 0.8 to, glucose 111 and calcium 9.1. The patient required straight catheterization for urinary retention with 550 mL of urine drained. Objective - Vital Signs Vital signs: Vital Signs Temp 98.1 F 04/29/22 03:47 Pulse 97 04/29/22 03:47 Resp 18 04/29/22 03:47 BP 101/50 04/29/22 03:47 Pulse Ox 92 L 04/29/22 03:47 FiO2 Intake & Output 04/28/22 04/29/22 04/29/22 18:59 06:59 18:59 Intake Total 1920 Output Total 80 1220 Balance 1840 -1220 Intake: IV 1450 Intake, IV Titration 50 Amount ceFAZolin 2 gm In Sodium 50 Chloride 0.9% 50 ml @ 100 mls/hr IVPB Q8HR [facility] Rx# :[id number] Oral 420 Output: Chest Tube Drainage 60 20 Left Pleural/Mediastinal 60 Left Posterior Chest 20 Urine 1200 Straight 1200 Estimated Blood Loss 20 Other: Voiding Method Urinal - Exam CONSTITUTIONAL: Appears comfortable, cooperative, no acute distress RESPIRATORY: Lungs sounds diminished bilaterally. Respirations are symmetrical, nonlabored. Currently on room air with oxygen saturation 92%. Able to achieve 1250 mL on incentive spirometry. Strong cough. CARDIOVASCULAR: S1, S2 present. Regular rate and rhythm, sinus rhythm on telemetry. Palpable peripheral pulses bilaterally. No edema present. No calf pain or tenderness noted. SCDs present. GASTROINTESTINAL: Abdomen soft, nontender, nondistended. Active bowel sounds present 4 quadrants. Tolerating diet. GENITOURINARY: Straight cath for 550 mL of clear yellow urine. INTEGUMENTARY: Skin is warm and dry with evidence of good perfusion NEUROLOGIC: Cranial nerves II through XII intact MUSKULOSKELETAL: Able to move all extremities, strength equal bilaterally, gait normal PSYCHIATRIC: Alert and oriented to person place and time, appropriate affect, intact judgment and insight INVASIVE LINES AND TUBES: Left pleural chest tube in place to low continuous wall suction -20 cm H2O. Intermittent air leak is present. Draining thin serosanguineous drainage with 75 mL output since surgery. - Allied health notes Allied health notes reviewed: nursing - Labs Labs: Abnormal Lab Results - Last 24 Hours (Table) 04/28/22 Range/Units 11:40 POC Glucose (mg/dL) 157 H (70-110) mg/dL - Imaging and Cardiology Chest x-ray: report reviewed, image reviewed Assessment and Plan Assessment: 1. Non-small cell lung cancer of the left upper lobe, status post video- assisted left thoracoscopic surgery, wedge resection of the left upper lobe nodule with mediastinal lymph node dissection 2. Severe chronic COPD with a preoperative FEV1 47% of predicted value 3. Hypertension 4. Hyperlipidemia 5. History of chronic nicotine dependence, quit smoking about 2 months ago 6. Gout 7. Osteoarthritis Plan: 1. Place left pleural chest tube to low continuous wall suction -20 cm H2O. Continue to monitor for airleak resolution. 2. Encourage use of incentive spirometry 10 times every hour while awake. 3. Out of bed for all meals, increase activity as tolerated. 4. Start Flomax 0.4 mg by mouth daily for urinary retention. His bladder scan every 6 hours and when necessary postvoid residual. If greater than 300 mL of urine may straight cath. 5. Pain control per when necessary orders. 6. Pathology results remain pending. Continue to follow pathology results. 7. Continue to follow labs and daily chest x-ray. 8. Pulmonary management recommendations and bronchodilators per pulmonary/critical care medicine. 9. More recommendations to follow based on patient's clinical course. Time with Patient: Greater than 30
[2022-04-29] MEDS: VIT A,C & E-LUTEIN-MINERALS 1 EACH TAB PO SCH (09:13)
[2022-04-29] MEDS: amLODIPine 10 MG TAB PO SCH (09:14)
[2022-04-29] MEDS: TAMSULOSIN 0.4 MG CAP.ER.24H PO SCH (09:14)
[2022-04-29] MEDS: HEPARIN SODIUM,PORCINE/PF 5,000 UNIT/0.5 ML SYRINGE SQ SCH ×2 (09:14→17:18)
[2022-04-29] MEDS: FERROUS SULFATE 325 MG TAB PO SCH (09:14)
[2022-04-29] MEDS: lisinopriL 10 MG TAB PO SCH (09:14)
[2022-04-29] MEDS: allopurinoL 100 MG TAB PO SCH ×2 (09:14→21:20)
[2022-04-29] MEDS: FLUTICASONE 110 MCG INHALER INHALATION SCH ×2 (11:53→20:23)
--- NOTE | 2022-04-29 13:40 | P.PN ---
Subjective Progress Note Date: 04/29/22 This is a very pleasant 66-year-old male patient who has a history of cervical neck pain and subsequent surgery in February 2022, hyperlipidemia, hypertension, chronic tobacco dependence of 50 years, chronic obstructive pulmonary disease with an FEV1 value of 45% of predicted. He is also found to have a left upper lobe cavitary nodule measuring 17 by 11 mm. a PET scan dated 02/02/2022 revealed necrotic neoplastic mass in the left upper lobe with an SUV level is 6.3 as well as a neoplastic nodule in the soft tissue of the left trapezius muscle medial to the left scaphoid with an SUV level of 6.3. He was seen and evaluated by CT services who brought the patient in today electively for a video-assisted left thorascopic wedge resection of the upper lobe nodule. Mediastinal lymph node dissection. Postop diagnosis of his non-small cell lung cancer. He is seen today in consultation on the selective care unit. Currently resting fairly comfortably in bed. Awake and alert. He is maintaining good O2 saturations in the upper 90s on 2 L/m per nasal cannula. Left-sided chest tube in place her chest x-ray reviewed. No significant pneumothorax. Blood glucose 157. He has been initiated on DuoNeb inhalations. Heparin for DVT prophylaxis. D5 and half-normal saline at 50 MLS per hour. Antibiotics in the form of cefazolin. Educated regarding the use of the incentive spirometer. The patient is seen today 04/29/2022 and a follow-up on the selective care unit. He is currently sitting up in a chair at the bedside. Awake and alert in no acute distress. He is maintaining O2 saturations in the 90s on room air. He's afebrile. Hemodynamically stable. He is working well with the incentive spirometer. Left-sided chest tube remains in place to Pleur-evac and wall suction. Positive leak. Positive pneumothorax on today's chest x-ray. White count 15.3. Hemoglobin 10.2. Sodium 133. Potassium 4.9. BUN 24. Creatinine 0.82. Glucose 111. He remains on DuoNeb inhalations. Heparin for DVT prophylaxis. Pain is currently well controlled. Objective - Vital Signs Vital signs: Vital Signs Temp 97.5 F L 04/29/22 11:38 Pulse 80 04/29/22 12:04 Resp 20 04/29/22 11:38 BP 113/57 04/29/22 11:38 Pulse Ox 93 L 04/29/22 11:38 FiO2 Intake & Output 04/28/22 04/29/22 04/29/22 18:59 06:59 18:59 Intake Total 1920 0 Output Total 80 1220 500 Balance 1840 -1220 -500 Intake: IV 1450 Intake, IV Titration 50 Amount ceFAZolin 2 gm In Sodium 50 Chloride 0.9% 50 ml @ 100 mls/hr IVPB Q8HR [facility] Rx# :[id number] Oral 420 0 Output: Chest Tube Drainage 60 20 Left Pleural/Mediastinal 60 Left Posterior Chest 20 Urine 1200 500 Straight 1200 450 Stool 0 Urine/Stool Mix 0 Emesis 0 Oral Regurgitation 0 Estimated Blood Loss 20 Other: Voiding Method Urinal # Voids 0 # Bowel Movements 0 - Exam GENERAL EXAM: Alert, pleasant 66-year-old gentleman, on room air, fairly comfortable in no apparent distress. HEAD: Normocephalic. EYES: Normal reaction of pupils, equal size. NOSE: Clear with pink turbinates. THROAT: No erythema or exudates. NECK: No masses, no JVD. CHEST: No chest wall deformity. Left sided chest tube in place to Pleur-evac and wall suction. Positive leak. Surgical incisions clean dry well approximated LUNGS: Equal air entry with end expiratory wheeze, few scattered rhonchi, diminished. CVS: S1 and S2 normal with no audible murmur, regular rhythm. ABDOMEN: No hepatosplenomegaly, normal bowel sounds, no guarding or rigidity. SPINE: No scoliosis or deformity SKIN: No rashes CENTRAL NERVOUS SYSTEM: No focal deficits, tone is normal in all 4 extremities. EXTREMITIES: There is no peripheral edema. No clubbing, no cyanosis. Peripheral pulses are intact. - Labs CBC & Chem 7: 04/29/22 07:03 04/29/22 07:03 Labs: Abnormal Lab Results - Last 24 Hours (Table) 04/29/22 04/29/22 Range/Units 07:03 07:03 WBC 15.3 H (3.8-10.6) k/uL RBC 3.11 L (4.30-5.90) m/uL Hgb 10.2 L (13.0-17.5) gm/dL Hct 30.0 L (39.0-53.0) % Neutrophils # 13.5 H (1.3-7.7) k/uL Lymphocytes # 0.7 L (1.0-4.8) k/uL Sodium 133 L (137-145) mmol/L Carbon Dioxide 20 L (22-30) mmol/L BUN 24 H (9-20) mg/dL Glucose 111 H (74-99) mg/dL Assessment and Plan Assessment: Left upper lobe necrotic cavitating mass measuring 1.3 x 2.2 x 1.5 cm as well as a 1.6 cm soft tissue density in the posterior back under the left trapezius muscle. Status post left upper lobe mass wedge resection positive for non-small cell carcinoma. Postoperative day #1. Left-sided chest tube in place to Pleur- evac and wall suction. Positive leak. Evidence of pneumothorax on today's chest x-ray. Acute hypoxemic respiratory failure with atelectasis secondary to above, e xpected outcome of surgery. Improved and on room air Chronic obstructive pulmonary disease with an FEV1 value 35% of predicted Chronic tobacco dependence of 50 years Hypertension Hyperlipidemia Cervical neck pain with subsequent surgery in February 2022 Plan: The patient was seen and evaluated Chest x-ray, medications and labs reviewed Continue bronchodilators, heparin for DVT prophylaxis Add NicoDerm patch as tolerated Adequate pain control Continue the incentive spirometer Increase his activity as tolerated Follow-up chest x-ray in the a.m. We will continue to follow I have personally seen and examined the patient, performed the documentation and the assessment and plan as written. Number of minutes spent on the visit: 10.
[2022-04-29] MEDS: NICOTINE 14MG/24HR PATCH TRANSDERM SCH (17:18)
[2022-04-29] MEDS: ATORVASTATIN 10 MG TAB PO SCH (21:20)
[2022-04-30] MEDS: KETOROLAC 15 MG/ML 1 ML VIAL IVP SCH ×4 (00:27→17:24)
[2022-04-30] MEDS: HEPARIN SODIUM,PORCINE/PF 5,000 UNIT/0.5 ML SYRINGE SQ SCH ×3 (00:27→15:43)
[2022-04-30] MEDS: IPRATROPIUM-ALBUTEROL 3 ML NEB IH PRN (03:40)
[2022-04-30] MEDS: PANTOPRAZOLE 40 MG TABLET PO SCH (06:53)
--- NOTE | 2022-04-30 07:50 | XR ---
EXAMINATION TYPE: XR chest 1V portable DATE OF EXAM: 04/30/2022 CLINICAL HISTORY: Difficulty breathing progress study. Postoperative left upper lung wedge resection . TECHNIQUE: Single AP portable upright view of the chest is obtained. COMPARISON: Chest x-ray from one day earlier and older studies. FINDINGS: Persistent left apical chest tube with tiny lateral pneumothorax inferiorly, this is impro alvaro from prior. Adjacent subcutaneous emphysema is slightly more prominent. Background chronic emphys ematous change redemonstrated. No new focal airspace opacity bilaterally. Cardiac silhouette size sta ble and within normal limits. Surgical changes to the cervical spine is partially imaged. No new medi astinal shift. IMPRESSION: Improved lateral left pneumothorax with chest tube in place. Worsening adjacent subcutane ous emphysema noted.
[2022-04-30] MEDS: FLUTICASONE 110 MCG INHALER INHALATION SCH ×2 (08:07→19:45)
[2022-04-30] MEDS: IPRATROPIUM-ALBUTEROL 3 ML NEB INHALATION SCH ×4 (08:07→19:45)
--- NOTE | 2022-04-30 08:27 | P.PN ---
Subjective Progress Note Date: 04/30/22 Principal diagnosis: Non-small cell lung cancer of the left upper lobe. Past medical history significant for hypertension, hyperlipidemia, chronic tobacco dependence of 50 years, severe chronic obstructive pulmonary disease with a preoperative FEV1 value of 47% of predicted, gout and osteoarthritis. POD #2 bronchoscopy, video-assisted left thoracoscopic surgery, wedge resection of left upper lobe nodule, mediastinal lymph node dissection and intercostal nerve block with 0.5% Marcaine with epinephrine at 3 levels. The patient was seen and examined in follow-up today 04/30/2022 at his bedside on the cardiac stepdown unit. He is awake, alert, oriented 3 and is in no acu te distress. He is tolerating his breakfast. Denies any complaints of pain or shortness of breath at this time. Oxygen saturations are 97% on room air and he is achieving 1000 mL on his incentive spirometry with encouragement. Remote telemetry showing normal sinus rhythm heart rate 77 BPM. Left pleural chest tube remains in place to low continuous wall suction -20 cm H2O. Intermittent air leak is present. Draining thin serosanguineous drainage with 85 mL output in the last 24 hours. He reports he has been up ambulating in his room with standby assistance from nursing staff without difficulty. Patient had some urinary retention yesterday requiring placement of a Tinsley catheter. He c ontinues on Flomax which was started yesterday. Objective - Vital Signs Vital signs: Vital Signs Temp 98.3 F 04/30/22 04:00 Pulse 82 04/30/22 08:08 Resp 12 04/30/22 04:00 BP 133/65 04/30/22 04:00 Pulse Ox 92 L 04/30/22 08:10 FiO2 21 04/30/22 03:41 Intake & Output 04/29/22 04/30/22 04/30/22 18:59 06:59 18:59 Intake Total 900 1060 Output Total 2408 1500 Balance -1508 -440 Intake: Oral 900 1060 Output: Chest Tube Drainage 29 30 Left Posterior Chest 29 30 Urine 1425 1470 Straight 450 Uretheral (Tinsley) 700 300 Post Void Residual 954 Stool 0 Urine/Stool Mix 0 Emesis 0 Oral Regurgitation 0 Other: Voiding Method Urinal Indwelling Catheter # Voids 0 # Bowel Movements 0 - Exam CONSTITUTIONAL: Appears comfortable, cooperative, no acute distress RESPIRATORY: Lungs sounds diminished bilaterally. Respirations are symmetrical, nonlabored. Currently on room air with oxygen saturation 97%. Able to achieve 1000 mL on incentive spirometry. Strong cough. CARDIOVASCULAR: S1, S2 present. Regular rate and rhythm, sinus rhythm on telemetry. Palpable peripheral pulses bilaterally. No edema present. No calf pain or tenderness noted. SCDs present. GASTROINTESTINAL: Abdomen soft, nontender, nondistended. Active bowel sounds present 4 quadrants. Tolerating diet. GENITOURINARY: Tinsley catheter in place due to some urinary retention. Urine output in the last 8 hours was 1170 mL. INTEGUMENTARY: Skin is warm and dry with no clubbing or cyanosis present. Subcutaneous emphysema to his left lateral chest. NEUROLOGIC: Cranial nerves II through XII intact MUSKULOSKELETAL: Able to move all extremities, strength equal bilaterally, gait normal PSYCHIATRIC: Alert and oriented to person place and time, appropriate affect, intact judgment and insight INVASIVE LINES AND TUBES: Left pleural chest tube in place to low continuous wall suction -20 cm H2O. Intermittent air leak is present. Draining thin serosanguineous drainage with 85 mL output in the last 24 hours. - Allied health notes Allied health notes reviewed: nursing - Labs CBC & Chem 7: 04/29/22 07:03 04/29/22 07:03 - Imaging and Cardiology Chest x-ray: report reviewed, image reviewed Assessment and Plan Assessment: 1. Non-small cell lung cancer of the left upper lobe, status post video-ass isted left thoracoscopic surgery, wedge resection of the left upper lobe nodule with mediastinal lymph node dissection 2. Severe chronic COPD with a preoperative FEV1 47% of predicted value 3. Hypertension 4. Hyperlipidemia 5. History of chronic nicotine dependence, quit smoking about 2 months ago 6. Gout 7. Osteoarthritis Plan: 1. Continue left pleural chest tube to low continuous wall suction -20 cm H2O. Continue to monitor for airleak resolution. 2. Encourage use of incentive spirometry 10 times every hour while awake. 3. Out of bed for all meals, increase activity as tolerated. 4. Continue Flomax 0.4 mg by mouth daily for urinary retention. Dr. Moreno from urology has been consulted. 5. Pain control per when necessary orders. 6. Pathology results remain pending. Continue to follow pathology results. 7. Continue to follow labs and daily chest x-ray. 8. Pulmonary management recommendations and bronchodilators per pulmonary/critical care medicine. 9. More recommendations to follow based on patient's clinical course. Time with Patient: Greater than 30
[2022-04-30] MEDS: VIT A,C & E-LUTEIN-MINERALS 1 EACH TAB PO SCH (08:55)
[2022-04-30] MEDS: TAMSULOSIN 0.4 MG CAP.ER.24H PO SCH (08:55)
[2022-04-30] MEDS: amLODIPine 10 MG TAB PO SCH (08:55)
[2022-04-30] MEDS: FERROUS SULFATE 325 MG TAB PO SCH (08:55)
[2022-04-30] MEDS: allopurinoL 100 MG TAB PO SCH ×2 (08:55→21:11)
[2022-04-30] MEDS: NICOTINE 14MG/24HR PATCH TRANSDERM SCH (08:55)
[2022-04-30] MEDS: lisinopriL 10 MG TAB PO SCH (08:55)
[2022-04-30 11:08] LABS: Basophils % (A) 0 %; Eosinophils # (A) 0.1 k/uL (0-0.7); Eosinophils % (A) 1 %; HCT 32.7 % (39.0-53.0); HGB 10.9 gm/dL (13.0-17.5); Lymphocytes # (A) 1.1 k/uL (1.0-4.8); Lymphocytes % (A) 11 %; MCH 32.6 pg (25.0-35.0); MCHC 33.3 g/dL (31.0-37.0); MCV 97.7 fL (80.0-100.0); Mean Platelet Volume 8.7; Monocytes # (A) 0.6 k/uL (0-1.0); Monocytes % (A) 6 %; Neutrophils # (A) 7.6 k/uL (1.3-7.7); Neutrophils % (A) 81 %; Platelet Count 289 k/uL (150-450); RBC 3.35 m/uL (4.30-5.90); RDW 13.3 % (11.5-15.5); WBC 9.4 k/uL (3.8-10.6)
[2022-04-30 11:20] LABS: ALT 20 U/L (4-49); AST 25 U/L (17-59); African American GFR (CKD) >90 (>60 ml/min/1.73 sqM); Albumin 3.9 g/dL (3.5-5.0); Alkaline Phosphatase 88 U/L (38-126); Anion Gap 10 mmol/L; Blood Urea Nitrogen 23 mg/dL (9-20); Calcium 9.2 mg/dL (8.4-10.2); Carbon Dioxide 23 mmol/L (22-30); Chloride 104 mmol/L (98-107); Glucose 122 mg/dL (74-99); Magnesium 1.7 mg/dL (1.6-2.3); Non-African American GFR(CKD) >90 (>60 ml/min/1.73 sqM); Potassium 4.5 mmol/L (3.5-5.1); Sodium 137 mmol/L (137-145); Total Bilirubin 0.5 mg/dL (0.2-1.3); Total Protein 6.1 g/dL (6.3-8.2)
--- NOTE | 2022-04-30 11:25 | P.GSCN ---
History of Present Illness Consult date: 04/30/22 Reason for Consult: urinary retention History of present illness: this is a 66 yo male S/P bronchoscopy, video-assisted left thoracoscopic surg gwen, wedge resection of left upper lobe nodule, mediastinal lymph node dissection on 04/28, post operatively developed urinary retention and jones catheter was placed yesterday. he does have obstructive urinary symptoms at baseline, no previous evaluation, not currently on any medical therapy for his BPH. Denies any previous history of urinary retention. Denies any dysuria or gross hematuria. his PVR was 950 mL upon Jones catheter insertion. Review of Systems - Constitutional Denies fever, Denies weight loss - Cardiovascular Denies chest pain, Denies shortness of breath - Gastrointestinal Reports as per HPI - Genitourinary Denies dysuria, Denies flank pain, Denies hematuria - Neurological Denies headaches, Denies syncope Past Medical History Past Medical History: COPD, Diabetes Mellitus, Hyperlipidemia, Hypertension, Musculoskeletal Disorder, Osteoarthritis (OA) Additional Past Medical History / Comment(s): left arm numbness much improved since neck surg., gout, back pain, anemia, "pre-diabetic"-watching diet. History of Any Multi-Drug Resistant Organisms: None Reported Past Surgical History: Joint Replacement, Orthopedic Surgery Additional Past Surgical History / Comment(s): surgery right foot, meaghan hip replacements, herniated umbilicus which strangulated bowel., cataracts removed, cervical fusion 02-09-22 Past Anesthesia/Blood Transfusion Reactions: No Reported Reaction Smoking Status: Former smoker - Past Family History Mother Family Medical History: No Reported History Medications and Allergies Home Medications Medication Instructions Recorded Confirmed Type Atorvastatin [Lipitor] 10 mg PO HS 02/04/22 04/28/22 History Fluticasone Propionate 110 Mcg 2 puff INHALATION BID 02/04/22 04/28/22 History [Flovent 110 Mcg Inhaler] Ipratropium-Albuterol Nebulize 3 ml INHALATION QID 02/04/22 04/28/22 History [Duoneb 0.5 mg-3 mg/3 ml Soln] Iron 25 mg PO DAILY 02/04/22 04/28/22 History Vit C/E/Zn/Coppr/Lutein/Zeaxan 1 each PO DAILY 02/04/22 04/28/22 History [Preservision Areds 2 Softgel] allopurinoL [Zyloprim] 100 mg PO BID 02/04/22 04/28/22 History amLODIPine [Norvasc] 10 mg PO DAILY 02/04/22 04/28/22 History lisinopriL [Zestril] 10 mg PO DAILY 02/04/22 04/28/22 History Allergies Allergy/AdvReac Type Severity Reaction Status Date / Time No Known Allergies Allergy Verified 04/28/22 06:26 Surgical - Exam Vital Signs Temp Pulse Resp BP Pulse Ox 97.6 F 65 17 160/72 97 04/28/22 06:28 04/28/22 06:28 04/28/22 06:28 04/28/22 06:28 04/28/22 06:28 - General no distress, no pain - Eyes normal ocular movement, no pale - ENT normal nares, normal mucosa - Respiratory normal expansion, normal respiratory effort - Abdomen Abdomen: soft, non tender, no distended - Psychiatric oriented to time, oriented to person, oriented to place Results - Labs 04/30/22 08:42 04/30/22 08:42 Abnormal Lab Results - Last 24 Hours (Table) 04/30/22 04/30/22 Range/Units 08:42 08:42 RBC 3.35 L (4.30-5.90) m/uL Hgb 10.9 L (13.0-17.5) gm/dL Hct 32.7 L (39.0-53.0) % BUN 23 H (9-20) mg/dL Glucose 122 H (74-99) mg/dL Total Protein 6.1 L (6.3-8.2) g/dL Diabetes panel 04/30/22 Range/Units 08:42 Sodium 137 (137-145) mmol/L Potassium 4.5 (3.5-5.1) mmol/L Chloride 104 (98-107) mmol/L Carbon Dioxide 23 (22-30) mmol/L BUN 23 H (9-20) mg/dL Creatinine 0.75 (0.66-1.25) mg/dL Glucose 122 H (74-99) mg/dL Calcium 9.2 (8.4-10.2) mg/dL AST 25 (17-59) U/L ALT 20 (4-49) U/L Alkaline Phosphatase 88 (38-126) U/L Total Protein 6.1 L (6.3-8.2) g/dL Albumin 3.9 (3.5-5.0) g/dL Calcium panel 04/30/22 Range/Units 08:42 Calcium 9.2 (8.4-10.2) mg/dL Albumin 3.9 (3.5-5.0) g/dL Pituitary panel 04/30/22 Range/Units 08:42 Sodium 137 (137-145) mmol/L Potassium 4.5 (3.5-5.1) mmol/L Chloride 104 (98-107) mmol/L Carbon Dioxide 23 (22-30) mmol/L BUN 23 H (9-20) mg/dL Creatinine 0.75 (0.66-1.25) mg/dL Glucose 122 H (74-99) mg/dL Calcium 9.2 (8.4-10.2) mg/dL Adrenal panel 04/30/22 Range/Units 08:42 Sodium 137 (137-145) mmol/L Potassium 4.5 (3.5-5.1) mmol/L Chloride 104 (98-107) mmol/L Carbon Dioxide 23 (22-30) mmol/L BUN 23 H (9-20) mg/dL Creatinine 0.75 (0.66-1.25) mg/dL Glucose 122 H (74-99) mg/dL Calcium 9.2 (8.4-10.2) mg/dL Total Bilirubin 0.5 (0.2-1.3) mg/dL AST 25 (17-59) U/L ALT 20 (4-49) U/L Alkaline Phosphatase 88 (38-126) U/L Total Protein 6.1 L (6.3-8.2) g/dL Albumin 3.9 (3.5-5.0) g/dL Assessment and Plan Assessment: 66-year-old male with postoperative urinary retention. This was likely secondary to his underlying BPH, complicated by his recent surgery and anesthesia. - continue Flomax - Can have a trial of void on Monday, if PVR is less than 350 mL can keep Jones out, if greater than 350 recommend reinserting a catheter and can follow-up as an outpatient in 2 weeks
--- NOTE | 2022-04-30 12:24 | P.PN ---
Subjective Progress Note Date: 04/30/22 This is a very pleasant 66-year-old male patient who has a history of cervical neck pain and subsequent surgery in February 2022, hyperlipidemia, hypertension, chronic tobacco dependence of 50 years, chronic obstructive pulmonary disease with an FEV1 value of 45% of predicted. He is also found to have a left upper lobe cavitary nodule measuring 17 by 11 mm. a PET scan dated 02/02/2022 revealed necrotic neoplastic mass in the left upper lobe with an SUV level is 6.3 as well as a neoplastic nodule in the soft tissue of the left trapezius muscle medial to the left scaphoid with an SUV level of 6.3. He was seen and evaluated by CT services who brought the patient in today electively for a video-assisted left thorascopic wedge resection of the upper lobe nodule. Mediastinal lymph node dissection. Postop diagnosis of his non-small cell lung cancer. He is seen today in consultation on the selective care unit. Currently resting fairly comfortably in bed. Awake and alert. He is maintaining good O2 saturations in the upper 90s on 2 L/m per nasal cannula. Left-sided chest tube in place her chest x-ray reviewed. No significant pneumothorax. Blood glucose 157. He has been initiated on DuoNeb inhalations. Heparin for DVT prophylaxis. D5 and half-normal saline at 50 MLS per hour. Antibiotics in the form of cefazolin. Educated regarding the use of the incentive spirometer. The patient is seen today 04/29/2022 and a follow-up on the selective care unit. He is currently sitting up in a chair at the bedside. Awake and alert in no acute distress. He is maintaining O2 saturations in the 90s on room air. He's afebrile. Hemodynamically stable. He is working well with the incentive spirometer. Left-sided chest tube remains in place to Pleur-evac and wall suction. Positive leak. Positive pneumothorax on today's chest x-ray. White count 15.3. Hemoglobin 10.2. Sodium 133. Potassium 4.9. BUN 24. Creatinine 0.82. Glucose 111. He remains on DuoNeb inhalations. Heparin for DVT prophylaxis. Pain is currently well controlled. The patient is seen today 04/30/2022 in follow-up on the selective care unit. He is currently sitting up in a chair at the bedside. Awake and alert in no acute distress. He is maintaining good O2 saturations in the 90s on 2 L/m per nasal cannula. He is working well with the incentive spirometer. Left-sided chest tube remains in place. Positive air leak. Chest x-ray does not reveal any significant pneumothorax. White count 9.4. Hemoglobin 10.9. Sodium 137. Potassium 4.5. BUN 23. Creatinine 0.75. Glucose 122. He remains on DuoNeb inhalations, Flovent. Heparin for DVT prophylaxis. NicoDerm patch in place. Objective - Vital Signs Vital signs: Vital Signs Temp 98 F 04/30/22 08:00 Pulse 81 04/30/22 12:13 Resp 12 04/30/22 08:00 BP 121/80 04/30/22 08:00 Pulse Ox 92 L 04/30/22 08:10 FiO2 21 04/30/22 03:41 Intake & Output 04/29/22 04/30/22 04/30/22 18:59 06:59 18:59 Intake Total 900 1060 Output Total 2408 1500 Balance -1508 -440 Intake: Oral 900 1060 Output: Chest Tube Drainage 29 30 Left Posterior Chest 29 30 Urine 1425 1470 Straight 450 Uretheral (Tinsley) 700 300 Post Void Residual 954 Stool 0 Urine/Stool Mix 0 Emesis 0 Oral Regurgitation 0 Other: Voiding Method Urinal Indwelling Catheter Indwelling Catheter # Voids 0 # Bowel Movements 0 - Exam GENERAL EXAM: Alert, pleasant 66-year-old male patient, on 2 L nasal cannula, fairly comfortable in no apparent distress. HEAD: Normocephalic. EYES: Normal reaction of pupils, equal size. NOSE: Clear with pink turbinates. THROAT: No erythema or exudates. NECK: No masses, no JVD. CHEST: No chest wall deformity. Left sided chest tube in place to Pleur-evac and wall suction. Positive leak. Surgical incisions clean dry well approximated LUNGS: Equal air entry with end expiratory wheeze, few scattered rhonchi, diminished. CVS: S1 and S2 normal with no audible murmur, regular rhythm. ABDOMEN: No hepatosplenomegaly, normal bowel sounds, no guarding or rigidity. SPINE: No scoliosis or deformity SKIN: No rashes CENTRAL NERVOUS SYSTEM: No focal deficits, tone is normal in all 4 extremities. EXTREMITIES: There is no peripheral edema. No clubbing, no cyanosis. Peripheral pulses are intact. - Labs CBC & Chem 7: 04/30/22 08:42 04/30/22 08:42 Labs: Abnormal Lab Results - Last 24 Hours (Table) 04/30/22 04/30/22 Range/Units 08:42 08:42 RBC 3.35 L (4.30-5.90) m/uL Hgb 10.9 L (13.0-17.5) gm/dL Hct 32.7 L (39.0-53.0) % BUN 23 H (9-20) mg/dL Glucose 122 H (74-99) mg/dL Total Protein 6.1 L (6.3-8.2) g/dL Assessment and Plan Assessment: Left upper lobe necrotic cavitating mass measuring 1.3 x 2.2 x 1.5 cm as well as a 1.6 cm soft tissue density in the posterior back under the left trapezius muscle. Status post left upper lobe mass wedge resection positive for non-small cell carcinoma. Postoperative day #2. Left-sided chest tube in place to Pleur- evac and wall suction. Positive leak. No significant evidence of pneumothorax on today's chest x-ray. Acute hypoxemic respiratory failure with atelectasis secondary to above, expected outcome of surgery. Improved and on room air Chronic obstructive pulmonary disease with an FEV1 value 35% of predicted Chronic tobacco dependence of 50 years Hypertension Hyperlipidemia Cervical neck pain with subsequent surgery in February 2022 Plan: The patient was seen and evaluated Chest x-ray, medications and labs reviewed Continue bronchodilators, heparin for DVT prophylaxis Continue the incentive spirometer Increase his activity as tolerated Follow-up chest x-ray in the a.m. We will continue to follow I have personally seen and examined the patient, performed the documentation and the assessment and plan as written. Number of minutes spent on the visit: 10.
[2022-04-30] MEDS: ATORVASTATIN 10 MG TAB PO SCH (21:11)
[2022-05-01] MEDS: KETOROLAC 15 MG/ML 1 ML VIAL IVP SCH ×3 (00:51→12:00)
[2022-05-01] MEDS: HEPARIN SODIUM,PORCINE/PF 5,000 UNIT/0.5 ML SYRINGE SQ SCH ×3 (00:53→16:17)
[2022-05-01] MEDS: IPRATROPIUM-ALBUTEROL 3 ML NEB IH PRN (05:46)
[2022-05-01] MEDS: PANTOPRAZOLE 40 MG TABLET PO SCH (06:43)
--- NOTE | 2022-05-01 06:54 | XR ---
EXAMINATION TYPE: XR chest 1V portable DATE OF EXAM: 05/01/2022 CLINICAL HISTORY: Difficulty breathing progress study. Postoperative VATS. TECHNIQUE: Single AP portable upright view of the chest is obtained. COMPARISON: Chest x-ray from one day earlier and older studies FINDINGS: Persistent left apical chest tube without visualized pneumothorax on current study. Adjace nt subcutaneous emphysema continues to progress. Background chronic emphysematous change redemonstrat ed. No new focal airspace opacity bilaterally. Cardiac silhouette size stable and within normal limit s. Surgical changes to the cervical spine is partially imaged. No new mediastinal shift. IMPRESSION: Resolved lateral left pneumothorax with chest tube in place. Continued Worsening adjacent subcutaneous emphysema however is noted.
[2022-05-01] MEDS: IPRATROPIUM-ALBUTEROL 3 ML NEB INHALATION SCH ×4 (07:45→19:45)
[2022-05-01] MEDS: FLUTICASONE 110 MCG INHALER INHALATION SCH ×2 (07:47→19:45)
--- NOTE | 2022-05-01 08:36 | P.PN ---
Subjective Progress Note Date: 05/01/22 Principal diagnosis: Non-small cell lung cancer of the left upper lobe. Past medical history significant for hypertension, hyperlipidemia, chronic tobacco dependence of 50 years, severe chronic obstructive pulmonary disease with a preoperative FEV1 value of 47% of predicted, gout and osteoarthritis. POD #3 bronchoscopy, video-assisted left thoracoscopic surgery, wedge resection of left upper lobe nodule, mediastinal lymph node dissection and intercostal nerve block with 0.5% Marcaine with epinephrine at 3 levels. The patient was seen and examined in follow-up today at his bedside on the cardiac stepdown unit. Currently sitting up to the bedside edge eating his breakfast, is awake, alert, oriented 3 and is in no acute distress. Oxygen saturations are 97% on room air and he is achieving 1457-0481 mL on his incentive spirometry with encouragement. Chest x-ray report this morning showed a resolved lateral left pneumothorax with chest tube in place, although his s ubcutaneous emphysema has worsened. Subsequently, his left pleural chest tube has been placed back to low continuous wall suction -20 cm H2O. Intermittent air leak is present. Draining thin serosanguineous drainage with 90 mL output in the last 24 hours. Remote telemetry showing normal sinus rhythm heart rate 81 BPM. He remains hemodynamically stable. Surgical pathology results remain pending. He denies any complaints of shortness of breath and is currently rating his pain 3 out of 10 on the pain scale 2 his left shoulder with taking a deep breath. Tinsley catheter remains in place for some urinary retention, he was seen by urology yesterday and will be given a voiding trial tomorrow 05/02/2022. Objective - Vital Signs Vital signs: Vital Signs Temp 98.7 F 05/01/22 04:00 Pulse 88 05/01/22 05:56 Resp 12 05/01/22 04:00 BP 119/53 05/01/22 04:00 Pulse Ox 92 L 05/01/22 07:50 FiO2 21 04/30/22 03:41 Intake & Output 04/30/22 05/01/22 05/01/22 18:59 06:59 18:59 Intake Total 240 Output Total 1000 785 Balance -760 -785 Intake: Oral 240 Output: Chest Tube Drainage 85 Left Posterior Chest 85 Urine 1000 700 Other: Voiding Method Indwelling Catheter Indwelling Catheter # Bowel Movements 0 - Exam CONSTITUTIONAL: Appears comfortable, cooperative, no acute distress RESPIRATORY: Lungs sounds diminished bilaterally. Respirations are symmetrical, nonlabored. Currently on room air with oxygen saturation 97%. Able to achieve 8165-3818 mL on incentive spirometry. Strong cough. CARDIOVASCULAR: S1, S2 present. Regular rate and rhythm, sinus rhythm on remote telemetry. Palpable peripheral pulses bilaterally. No edema present. No calf pain or tenderness noted. SCDs present. GASTROINTESTINAL: Abdomen soft, nontender, nondistended. Active bowel sounds present 4 quadrants. Tolerating diet. GENITOURINARY: Tinsley catheter in place due to some urinary retention. Urine output in the last 8 hours was 500 mL. INTEGUMENTARY: Skin is warm and dry with no clubbing or cyanosis present. Subcutaneous emphysema to his left lateral chest. NEUROLOGIC: Cranial nerves II through XII intact MUSKULOSKELETAL: Able to move all extremities, strength equal bilaterally, gait normal PSYCHIATRIC: Alert and oriented to person place and time, appropriate affect, intact judgment and insight INVASIVE LINES AND TUBES: Left pleural chest tube in place to low continuous wall suction -20 cm H2O. Intermittent air leak is present. Draining thin serosanguineous drainage with 90 mL output in the last 24 hours. - Allied health notes Allied health notes reviewed: nursing - Labs CBC & Chem 7: 04/30/22 08:42 04/30/22 08:42 Labs: Abnormal Lab Results - Last 24 Hours (Table) 04/30/22 04/30/22 Range/Units 08:42 08:42 RBC 3.35 L (4.30-5.90) m/uL Hgb 10.9 L (13.0-17.5) gm/dL Hct 32.7 L (39.0-53.0) % BUN 23 H (9-20) mg/dL Glucose 122 H (74-99) mg/dL Total Protein 6.1 L (6.3-8.2) g/dL - Imaging and Cardiology Chest x-ray: report reviewed, image reviewed Assessment and Plan Assessment: 1. Non-small cell lung cancer of the left upper lobe, status post video- assisted left thoracoscopic surgery, wedge resection of the left upper lobe nodule with mediastinal lymph node dissection 2. Severe chronic COPD with a preoperative FEV1 47% of predicted value 3. Hypertension 4. Hyperlipidemia 5. History of chronic nicotine dependence, quit smoking about 2 months ago 6. Gout 7. Osteoarthritis 8. Urinary retention, secondary to his underlying BPH Plan: 1. Continue left pleural chest tube to low continuous wall suction -20 cm H2O. Continue to monitor for airleak resolution. 2. Encourage use of incentive spirometry 10 times every hour while awake. 3. Out of bed for all meals, increase activity as tolerated. 4. Continue Flomax 0.4 mg by mouth daily for urinary retention. Dr. Moreno from urology consult is noted and appreciated. We will give a voiding trial tomorrow per urology recommendations. 5. Pain control per when necessary orders. 6. Pathology results remain pending. Continue to follow pathology results. 7. Continue to follow labs and daily chest x-ray. 8. Bronchodilators per pulmonary/critical care medicine recommendations. 9. More recommendations to follow based on patient's clinical course. Time with Patient: Greater than 30
[2022-05-01] MEDS: amLODIPine 10 MG TAB PO SCH (08:43)
[2022-05-01] MEDS: TAMSULOSIN 0.4 MG CAP.ER.24H PO SCH (08:43)
[2022-05-01] MEDS: FERROUS SULFATE 325 MG TAB PO SCH (08:43)
[2022-05-01] MEDS: VIT A,C & E-LUTEIN-MINERALS 1 EACH TAB PO SCH (08:43)
[2022-05-01] MEDS: NICOTINE 14MG/24HR PATCH TRANSDERM SCH (08:43)
[2022-05-01] MEDS: allopurinoL 100 MG TAB PO SCH ×2 (08:43→20:41)
[2022-05-01] MEDS: lisinopriL 10 MG TAB PO SCH (08:43)
--- NOTE | 2022-05-01 12:03 | P.PN ---
Subjective Progress Note Date: 05/01/22 Principal diagnosis: Status post was resection of left upper lobe nodule, mediastinal node dissection and intercostal nerve block postoperative day #3 This is a very pleasant 66-year-old male patient who has a history of cervical neck pain and subsequent surgery in February 2022, hyperlipidemia, hypertension, chronic tobacco dependence of 50 years, chronic obstructive pulmonary disease with an FEV1 value of 45% of predicted. He is also found to have a left upper lobe cavitary nodule measuring 17 by 11 mm. a PET scan dated 02/02/2022 revealed necrotic neoplastic mass in the left upper lobe with an SUV level is 6.3 as well as a neoplastic nodule in the soft tissue of the left trapezius muscle medial to the left scaphoid with an SUV level of 6.3. He was seen and evaluated by CT services who brought the patient in today electively for a video-assisted left thorascopic wedge resection of the upper lobe nodule. Mediastinal lymph node dissection. Postop diagnosis of his non-small cell lung cancer. He is seen today in consultation on the selective care unit. Currently resting fairly comfortably in bed. Awake and alert. He is maintaining good O2 saturations in the upper 90s on 2 L/m per nasal cannula. Left-sided chest tube in place her chest x-ray reviewed. No significant pneumothorax. Blood glucose 157. He has been initiated on DuoNeb inhalations. Heparin for DVT prophylaxis. D5 and half-normal saline at 50 MLS per hour. Antibiotics in the form of cefazolin. Educated regarding the use of the incentive spirometer. The patient is seen today 04/29/2022 and a follow-up on the selective care unit. He is currently sitting up in a chair at the bedside. Awake and alert in no acute distress. He is maintaining O2 saturations in the 90s on room air. He's afebrile. Hemodynamically stable. He is working well with the incentive spirometer. Left-sided chest tube remains in place to Pleur-evac and wall suction. Positive leak. Positive pneumothorax on today's chest x-ray. White count 15.3. Hemoglobin 10.2. Sodium 133. Potassium 4.9. BUN 24. Creatinine 0.82. Glucose 111. He remains on DuoNeb inhalations. Heparin for DVT prophylaxis. Pain is currently well controlled. Reevaluated today on 05/01/22, patient is doing great, asymptomatic, continues to have chest tube in place, however is off suction. Chest x-ray showed minimal subcutaneous emphysema, intermittent air leak noted in the chest tube. Objective - Vital Signs Vital signs: Vital Signs Temp 97.8 F 05/01/22 11:59 Pulse 75 05/01/22 11:59 Resp 16 05/01/22 11:59 BP 123/63 05/01/22 11:59 Pulse Ox 94 L 05/01/22 11:59 FiO2 21 04/30/22 03:41 Intake & Output 04/30/22 05/01/22 05/01/22 18:59 06:59 18:59 Intake Total 240 240 Output Total 1000 785 Balance -760 -785 240 Intake: Oral 240 240 Output: Chest Tube Drainage 85 Left Posterior Chest 85 Urine 1000 700 Other: Voiding Method Indwelling Catheter Indwelling Catheter Indwelling Catheter # Bowel Movements 0 - Exam GENERAL EXAM: Alert, pleasant 66-year-old gentleman, on room air, asymptomatic. Eyes: Normal size pupils, no icterus. NOSE: Clear with pink turbinates. THROAT: No erythema or exudates. NECK: No masses, no JVD. CHEST: No chest wall deformity. Left sided chest tube in place LUNGS: Equal air entry with end expiratory wheeze, few scattered rhonchi, diminished. CVS: S1 and S2 normal with no audible murmur, regular rhythm. ABDOMEN: No hepatosplenomegaly, normal bowel sounds, no guarding or rigidity. SKIN: No rashes CENTRAL NERVOUS SYSTEM: Alert and oriented 3 focal deficit EXTREMITIES: No clubbing edema or cyanosis - Labs CBC & Chem 7: 04/30/22 08:42 04/30/22 08:42 Assessment and Plan Assessment: Left upper lobe necrotic cavitating mass measuring 1.3 x 2.2 x 1.5 cm as well as a 1.6 cm soft tissue density in the posterior back under the left trapezius muscle. Status post left upper lobe mass wedge resection positive for non-small cell carcinoma. Postoperative day #3. Left-sided chest tube in place to Pleur- evac Acute hypoxemic respiratory failure with atelectasis secondary to above, expected outcome of surgery. Improved and on room air Chronic obstructive pulmonary disease with an FEV1 value 35% of predicted Chronic tobacco dependence of 50 years Hypertension Hyperlipidemia Cervical neck pain with subsequent surgery in February 2022 Plan: Continue present supportive care measures Continue pain control management Continue bronchodilators Continue NicoDerm Continue incentive spirometry Possible discharge planning in the next 24 hours in follow-up on outpatient basis Time with Patient: Less than 30
[2022-05-01] MEDS: ATORVASTATIN 10 MG TAB PO SCH (20:41)
[2022-05-02] MEDS: HEPARIN SODIUM,PORCINE/PF 5,000 UNIT/0.5 ML SYRINGE SQ SCH ×3 (00:09→16:15)
[2022-05-02] MEDS: IPRATROPIUM-ALBUTEROL 3 ML NEB IH PRN (01:57)
[2022-05-02] MEDS: PANTOPRAZOLE 40 MG TABLET PO SCH (06:50)
[2022-05-02] MEDS ORDERED: KETOROLAC 15 MG/ML 1 ML VIAL IVP SCH (07:00)
[2022-05-02] MEDS ORDERED: MAGNESIUM HYDROXIDE 2,400 MG/10 ML CUP PO PRN (07:08)
[2022-05-02] MEDS ORDERED: bisacodyL 10 MG SUPP RECTAL PRN (07:08)
[2022-05-02] MEDS: IPRATROPIUM-ALBUTEROL 3 ML NEB INHALATION SCH ×4 (07:11→20:00)
[2022-05-02] MEDS: FLUTICASONE 110 MCG INHALER INHALATION SCH ×2 (07:11→20:00)
--- NOTE | 2022-05-02 07:19 | XR ---
EXAMINATION TYPE: XR chest 1V portable DATE OF EXAM: 05/02/2022 6:48 AM COMPARISON: Chest radiograph from one day prior. TECHNIQUE: XR chest 1V portable Portable AP radiograph of the chest. CLINICAL INDICATION:Male, 66 years old with history of Postop left VATS; FINDINGS: Lungs/Pleura: There is no evidence of pleural effusion, focal consolidation, or pneumothorax. Pulmonary vascularity: Unremarkable. Heart/mediastinum: Cardiomediastinal silhouette is unremarkable. Atherosclerotic calcifications are seen in the aorta. Musculoskeletal: No acute osseous pathology. There is fixation hardware in the lower cervical spine. Other findings: Subcutaneous emphysema scattered throughout the left visualized chest wall and left n akanksha. Lines/Tubes: Left thoracotomy tube is present without evidence of pneumothorax. IMPRESSION: 1. Left thoracotomy tube without evidence of pneumothorax. There is associated subcutaneous emphysem a which appears similar. 2. COPD changes
[2022-05-02 08:05] LABS: HCT 31.1 % (39.0-53.0); HGB 10.7 gm/dL (13.0-17.5); MCHC 34.3 g/dL (31.0-37.0); MCV 96.1 fL (80.0-100.0); Mean Platelet Volume 7.8; Platelet Count 276 k/uL (150-450); RBC 3.24 m/uL (4.30-5.90); RDW 13.2 % (11.5-15.5); WBC 8.7 k/uL (3.8-10.6)
[2022-05-02] MEDS: NICOTINE 14MG/24HR PATCH TRANSDERM SCH (08:18)
[2022-05-02] MEDS: TAMSULOSIN 0.4 MG CAP.ER.24H PO SCH (08:19)
[2022-05-02] MEDS: amLODIPine 10 MG TAB PO SCH (08:19)
[2022-05-02] MEDS: allopurinoL 100 MG TAB PO SCH ×2 (08:19→20:55)
[2022-05-02] MEDS: SENNOSIDES-DOCUSATE SODIUM 1 EACH TAB PO SCH ×2 (08:19→20:55)
[2022-05-02] MEDS: lisinopriL 10 MG TAB PO SCH (08:19)
[2022-05-02] MEDS: FERROUS SULFATE 325 MG TAB PO SCH (08:19)
[2022-05-02] MEDS: VIT A,C & E-LUTEIN-MINERALS 1 EACH TAB PO SCH (08:19)
[2022-05-02] MEDS: KETOROLAC 15 MG/ML 1 ML VIAL IVP PRN ×3 (08:19→23:10)
[2022-05-02 08:25] LABS: African American GFR (CKD) >90 (>60 ml/min/1.73 sqM); Anion Gap 9 mmol/L; Blood Urea Nitrogen 21 mg/dL (9-20); Carbon Dioxide 23 mmol/L (22-30); Chloride 103 mmol/L (98-107); Glucose 114 mg/dL (74-99); Magnesium 1.7 mg/dL (1.6-2.3); Non-African American GFR(CKD) >90 (>60 ml/min/1.73 sqM); Potassium 4.4 mmol/L (3.5-5.1); Sodium 135 mmol/L (137-145)
--- NOTE | 2022-05-02 09:33 | P.PN ---
Subjective Progress Note Date: 05/02/22 Principal diagnosis: Non-small cell lung cancer of the left upper lobe. Previuos medical history of hypertension, hyperlipidemia, chronic tobacco dependence of 50 years, severe ch ronic obstructive pulmonary disease, gout and osteoarthritis. POD #4 bronchoscopy, video-assisted left thoracoscopic surgery, wedge resection of left upper lobe nodule, mediastinal lymph node dissection and intercostal nerve block with 0.5% Marcaine with epinephrine at 3 levels. The patient was seen and examined swearing sitting up in bed in no acute distress eating breakfast. He denies any post surgical pain or shortness of breath, his only complaint is some mild left shoulder pain for which he has taken no pain medication for. Left pleural chest tube remains in place to continuous wall suction with positive air leak present. Currently on room air with oxygen saturation in the mid 90s and able to achieve 1500 mL on his incentive spirometer. Tinsley catheter was discontinued this morning for trial void. He has been ambulatory without difficulty. No other new concerns. Objective - Vital Signs Vital signs: Vital Signs Temp 98.3 F 05/02/22 08:15 Pulse 76 05/02/22 08:15 Resp 16 05/02/22 08:15 BP 123/57 05/02/22 08:15 Pulse Ox 92 L 05/02/22 08:15 FiO2 21 05/02/22 01:57 Intake & Output 05/01/22 05/02/22 05/02/22 18:59 06:59 18:59 Intake Total 240 118 Output Total 460 1270 Balance -220 -1270 118 Intake: Oral 240 118 Output: Chest Tube Drainage 60 50 Left Posterior Chest 60 50 Urine 400 1220 Other: Voiding Method Indwelling Catheter Indwelling Catheter # Bowel Movements 0 - Exam CONSTITUTIONAL: Appears comfortable, cooperative, no acute distress RESPIRATORY: Lungs sounds diminished bilaterally, left greater than right. Respirations even, nonlabored. Currently on room air with oxygen saturation 100%. Able to achieve 1000 mL on incentive spirometry. Strong cough. CARDIOVASCULAR: S1, S2 present. Regular rate and rhythm, sinus rhythm on telemetry. Palpable peripheral pulses bilaterally. No edema present. No calf pain or tenderness noted. SCDs present. GASTROINTESTINAL: Abdomen soft, nontender, nondistended. Active bowel sounds present 4 quadrants. Tolerating diet. Positive flatus, no bowel movement since surgery GENITOURINARY: Tinsley catheter discontinued this morning, due to void, urine output 600 mL overnight, 1400 mL last 24 hours INTEGUMENTARY: Skin is warm and dry with evidence of good perfusion. Thoracic incision well approximated and covered with dry intact dressing. NEUROLOGIC: Cranial nerves II through XII intact MUSKULOSKELETAL: Able to move all extremities, strength equal bilaterally, gait normal PSYCHIATRIC: Alert and oriented to person place and time, appropriate affect, intact judgment and insight INVASIVE LINES AND TUBES: Left pleural chest tube present and connected to wall suction, air leaks present with expiration, 50 mL serosanguineous drainage overnight, 150 mL in the last 24 hours - Allied health notes Allied health notes reviewed: nursing - Labs CBC & Chem 7: 05/02/22 07:51 05/02/22 07:51 Labs: Abnormal Lab Results - Last 24 Hours (Table) 05/02/22 05/02/22 Range/Units 07:51 07:51 RBC 3.24 L (4.30-5.90) m/uL Hgb 10.7 L (13.0-17.5) gm/dL Hct 31.1 L (39.0-53.0) % Sodium 135 L (137-145) mmol/L BUN 21 H (9-20) mg/dL Creatinine 0.65 L (0.66-1.25) mg/dL Glucose 114 H (74-99) mg/dL - Imaging and Cardiology Chest x-ray: report reviewed, image reviewed Assessment and Plan Assessment: 1. Non-small cell lung cancer of the left upper lobe, final pathology pending, status post bronchoscopy, video-assisted left thoracoscopic surgery, wedge resection of left upper lobe nodule, mediastinal lymph node dissection 2. History of hypertension 3. History of hyperlipidemia 4. Chronic tobacco dependence of 50 years 5. Severe chronic obstructive pulmonary disease with preoperative FEV1 47% of predicted 6. Gout 7. Osteoarthritis 8. Urinary retention, secondary to underlying BPH Plan: 1. Continue left pleural chest tube to low continuous wall suction -20 cm H2O. Continue to monitor for airleak resolution. 2. Encourage use of incentive spirometry 10 times every hour while awake. 3. Out of bed for all meals, increase activity as tolerated. 4. Continue Flomax 0.4 mg by mouth daily for urinary retention. Will give a voiding trial today per urology recommendations, if residual vertigo and 350 mL will reinsert Tinsley and have patient follow-up with urology outpatient 5. Pain control per current medication regimen 6. Pathology results pending, will continue to follow 7. Continue to follow labs and daily chest x-ray. 8. Bronchodilators per pulmonary. 9. More recommendations to follow based on patient's clinical course.
[2022-05-02] MEDS: MAGNESIUM SULFATE-D5W PMX 1 GM in DEXTROSE/WATER 1 100ML.BAG IVPB SCH ×2 (12:16→16:14)
--- NOTE | 2022-05-02 14:12 | P.PN ---
Subjective Progress Note Date: 05/02/22 Principal diagnosis: Pulmonary nodule. Status post was resection of left upper lobe nodule, mediastinal node dissection and intercostal nerve block postoperative day #3 This is a very pleasant 66-year-old male patient who has a history of cervical neck pain and subsequent surgery in February 2022, hyperlipidemia, hypertension, chronic tobacco dependence of 50 years, chronic obstructive pulmonary disease with an FEV1 value of 45% of predicted. He is also found to have a left upper lobe cavitary nodule measuring 17 by 11 mm. a PET scan dated 02/02/2022 revealed necrotic neoplastic mass in the left upper lobe with an SUV level is 6.3 as well as a neoplastic nodule in the soft tissue of the left trapezius muscle medial to the left scaphoid with an SUV level of 6.3. He was seen and evaluated by CT services who brought the patient in today electively for a video-assisted left thorascopic wedge resection of the upper lobe nodule. Mediastinal lymph node dissection. Postop diagnosis of his non-small cell lung cancer. He is seen today in consultation on the selective care unit. Currently resting fairly comfortably in bed. Awake and alert. He is maintaining good O2 saturations in the upper 90s on 2 L/m per nasal cannula. Left-sided chest tube in place her chest x-ray reviewed. No significant pneumothorax. Blood glucose 157. He has been initiated on DuoNeb inhalations. Heparin for DVT prophylaxis. D5 and half-normal saline at 50 MLS per hour. Antibiotics in the form of cefazolin. Educated regarding the use of the incentive spirometer. The patient is seen today 04/29/2022 and a follow-up on the selective care unit. He is currently sitting up in a chair at the bedside. Awake and alert in no acute distress. He is maintaining O2 saturations in the 90s on room air. He's afebrile. Hemodynamically stable. He is working well with the incentive s pirometer. Left-sided chest tube remains in place to Pleur-evac and wall suction. Positive leak. Positive pneumothorax on today's chest x-ray. White count 15.3. Hemoglobin 10.2. Sodium 133. Potassium 4.9. BUN 24. Creatinine 0.82. Glucose 111. He remains on DuoNeb inhalations. Heparin for DVT prophylaxis. Pain is currently well controlled. Reevaluated today on 05/01/22, patient is doing great, asymptomatic, continues to have chest tube in place, however is off suction. Chest x-ray showed minimal subcutaneous emphysema, intermittent air leak noted in the chest tube. Progress note dated 05/02/2022. The patient is again seen today in room 376. The patient has significant subcut aneous emphysema on his chest x-ray. The left-sided chest tube is still present. There is a clear-cut leak noted. The patient's currently on room air. He denies being short of breath. White count 8.7, hemoglobin 10.7, hematocrit 31.1, and platelet count 276,000. Sodium 135, potassium 4.4, chlorides 103, CO2 23, anion gap 9, BUN 21, creatinine 0.65. Calcium is 9. Magnesium is 1.7. Chest x-ray from May 02, show significant subcutaneous emphysema. There is also an apically placed left-sided chest tube, and possibly a small left apical pneumothorax. Objective - Vital Signs Vital signs: Vital Signs Temp 97.7 F 05/02/22 12:15 Pulse 69 05/02/22 12:15 Resp 16 05/02/22 12:15 BP 97/51 05/02/22 12:15 Pulse Ox 94 L 05/02/22 12:15 FiO2 21 05/02/22 01:57 Intake & Output 05/01/22 05/02/22 05/02/22 18:59 06:59 18:59 Intake Total 240 598 Output Total 460 1270 Balance -220 -1270 598 Intake: Oral 240 598 Output: Chest Tube Drainage 60 50 Left Posterior Chest 60 50 Urine 400 1220 Other: Voiding Method Indwelling Catheter Indwelling Catheter Indwelling Catheter # Bowel Movements 0 - Exam No acute distress, oriented 3. Currently on room air. Saturations are 94%. HEENT examination is grossly unremarkable. Neck supple. Full range of motion. No adenopathy thyromegaly or neck vein distention. Cardiovascular examination reveals regular rhythm rate. S1-S2 normal. No S3 or S4. No discernible murmur noted. Heart rate 69 bpm. Lungs reveal mild to moderate scattered rhonchi. No wheezes. No crackles. Subcutaneous emphysema is appreciated. Abdomen soft bowel sounds are heard. No masses or tenderness. Extremities are intact. No cyanosis clubbing or edema. Skin is without rash or lesion. Neurologic examination is brief but nonfocal. - Labs CBC & Chem 7: 05/02/22 07:51 05/02/22 07:51 Labs: Abnormal Lab Results - Last 24 Hours (Table) 05/02/22 05/02/22 Range/Units 07:51 07:51 RBC 3.24 L (4.30-5.90) m/uL Hgb 10.7 L (13.0-17.5) gm/dL Hct 31.1 L (39.0-53.0) % Sodium 135 L (137-145) mmol/L BUN 21 H (9-20) mg/dL Creatinine 0.65 L (0.66-1.25) mg/dL Glucose 114 H (74-99) mg/dL Assessment and Plan Assessment: 1.3 x 2.2 x 1.5 cm left upper lobe necrotic cavitating mass, status post left upper lobe wedge resection for suspected non-small cell carcinoma, postop day #4. 1.6 cm soft tissue density, posterior back, under the left trapezius muscle. COPD, with an FEV1 of 35% of predicted. Chronic tobacco dependence of greater than 50 years. History of hypertension. History of hyperlipidemia. Cervical neck pain, with subsequent surgery, February 2022. Plan: Plan dated 05/02/2022. Currently, pathologic specimens are pending. The patient is thought to have non-small cell lung cancer. The patient continues with a left chest tube in place. There may be a small apical pneumothorax on the left. There is considerable subcutaneous emphysema in the left neck and chest area. His, and medications are reviewed. Prognosis is certainly guarded. We will await the results of the pathology evaluation. Time with Patient: Less than 30
[2022-05-02] MEDS: traMADol 50 MG TAB PO PRN (20:55)
[2022-05-02] MEDS: ATORVASTATIN 10 MG TAB PO SCH (20:55)
[2022-05-03] MEDS: HEPARIN SODIUM,PORCINE/PF 5,000 UNIT/0.5 ML SYRINGE SQ SCH ×3 (00:50→17:02)
[2022-05-03] MEDS: IPRATROPIUM-ALBUTEROL 3 ML NEB IH PRN (01:13)
[2022-05-03] MEDS: PANTOPRAZOLE 40 MG TABLET PO SCH (06:32)
--- NOTE | 2022-05-03 08:06 | XR ---
EXAMINATION TYPE: XR chest 2V DATE OF EXAM: 05/03/2022 COMPARISON: Chest x-ray 05/02/2022, PET/CT 02/02/2022 HISTORY: Post wedge resection, chest tube TECHNIQUE: Frontal and lateral views of the chest are obtained. FINDINGS: Left-sided chest tube is in place, there is extensive subcutaneous emphysema again noted o josefina the left chest. Postop changes are noted the cervical spine. No sizable pneumothorax is evident. Prominent lung volumes are consistent with underlying COPD, there is underlying emphysema. Lobular so ft tissue density present in the suprahilar location on the left. Eventration of the right hemidiaphr agm is noted. Interstitium is prominent. Cardiac mediastinal silhouette is stable. Aorta is dense. Th ere are overlying leads. IMPRESSION: Postop changes.
[2022-05-03] MEDS: KETOROLAC 15 MG/ML 1 ML VIAL IVP PRN ×3 (08:09→22:40)
[2022-05-03] MEDS: allopurinoL 100 MG TAB PO SCH ×2 (08:10→19:54)
[2022-05-03] MEDS: TAMSULOSIN 0.4 MG CAP.ER.24H PO SCH (08:10)
[2022-05-03] MEDS: NICOTINE 14MG/24HR PATCH TRANSDERM SCH (08:10)
[2022-05-03] MEDS: lisinopriL 10 MG TAB PO SCH (08:10)
[2022-05-03] MEDS: SENNOSIDES-DOCUSATE SODIUM 1 EACH TAB PO SCH ×2 (08:10→19:54)
[2022-05-03] MEDS: VIT A,C & E-LUTEIN-MINERALS 1 EACH TAB PO SCH (08:10)
[2022-05-03] MEDS: amLODIPine 10 MG TAB PO SCH (08:10)
[2022-05-03] MEDS: FERROUS SULFATE 325 MG TAB PO SCH (08:10)
[2022-05-03] MEDS: FLUTICASONE 110 MCG INHALER INHALATION SCH ×2 (08:39→19:25)
[2022-05-03] MEDS: IPRATROPIUM-ALBUTEROL 3 ML NEB INHALATION SCH ×4 (08:39→19:23)
[2022-05-03 09:04] LABS: HCT 31.2 % (39.0-53.0); HGB 10.5 gm/dL (13.0-17.5); MCH 32.9 pg (25.0-35.0); MCHC 33.6 g/dL (31.0-37.0); MCV 97.9 fL (80.0-100.0); Mean Platelet Volume 7.9; Platelet Count 294 k/uL (150-450); RBC 3.18 m/uL (4.30-5.90); RDW 13.4 % (11.5-15.5); WBC 8.5 k/uL (3.8-10.6)
[2022-05-03 09:30] LABS: African American GFR (CKD) >90 (>60 ml/min/1.73 sqM); Anion Gap 9 mmol/L; Blood Urea Nitrogen 20 mg/dL (9-20); Calcium 9.1 mg/dL (8.4-10.2); Carbon Dioxide 24 mmol/L (22-30); Chloride 103 mmol/L (98-107); Glucose 123 mg/dL (74-99); Non-African American GFR(CKD) >90 (>60 ml/min/1.73 sqM); Potassium 5.1 mmol/L (3.5-5.1); Sodium 136 mmol/L (137-145)
[2022-05-03] MEDS ORDERED: bisacodyL 10 MG SUPP RECTAL STA (10:43)
--- NOTE | 2022-05-03 10:47 | P.PN ---
Subjective Progress Note Date: 05/03/22 Principal diagnosis: Non-small cell lung cancer of the left upper lobe. Past medical history significant for hypertension, hyperlipidemia, chronic tobacco dependence of 50 years, severe chronic obstructive pulmonary disease with a preoperative FEV1 value of 47% of predicted, gout and osteoarthritis. POD #4 bronchoscopy, video-assisted left thoracoscopic surgery, wedge resection of left upper lobe nodule, mediastinal lymph node dissection and intercostal nerve block with 0.5% Marcaine with epinephrine at 3 levels. The patient was seen and examined today 05/03/2022 at his bedside on the cardiac stepdown unit. Currently sitting up to bedside chair, is awake, alert, oriented 3 and is in no acute distress. He is sitting up eating his breakfast and denies any complaints of pain or shortness of breath at this time. Oxygen saturations are 94% on room air and he is achieving 1000 mL on his incentive spirometry with encouragement. Left pleural chest tube remains in place to water seal with a intermittent air leak present with expiration. Chest tube is draining thin serosanguineous drainage with 60 mL output the last 24 hours. He remained hemodynamically stable and is currently on no inotropic pressor support. Laboratory results morning show a WBC count of 8.5, hemoglobin 10.5, hematocrit 31.2, platelets 294, sodium 136, potassium 5.1, BUN 20, creatinine 0.73, glucose 123 and calcium 9.1. He reports he has been ambulating in the hallway. He is complaining of constipation. Objective - Vital Signs Vital signs: Vital Signs Temp 97.5 F L 05/03/22 08:15 Pulse 71 05/03/22 08:52 Resp 16 05/03/22 08:15 BP 115/56 05/03/22 08:15 Pulse Ox 94 L 05/03/22 08:15 FiO2 21 05/02/22 01:57 Intake & Output 05/02/22 05/03/22 05/03/22 18:59 06:59 18:59 Intake Total 1318 0 Output Total 435 300 Balance 883 -300 0 Intake: Oral 1318 0 Output: Chest Tube Drainage 0 Left Posterior Chest 0 Urine 300 300 Post Void Residual 135 Other: Voiding Method Indwelling Catheter Urinal - Exam CONSTITUTIONAL: Appears comfortable, cooperative, no acute distress RESPIRATORY: Lungs sounds diminished bilaterally. Respirations are symmetrical, nonlabored. Currently on room air with oxygen saturation 97%. Able to achieve 1500 mL on incentive spirometry. Strong cough. CARDIOVASCULAR: S1, S2 present. Regular rate and rhythm, sinus rhythm on remote telemetry. Palpable peripheral pulses bilaterally. No edema present. No calf pain or tenderness noted. SCDs present. GASTROINTESTINAL: Abdomen soft, nontender, nondistended. Active bowel sounds present 4 quadrants. Tolerating diet. GENITOURINARY: Tinsley catheter in place due to some urinary retention. Urine output in the last 8 hours was 300 mL. INTEGUMENTARY: Skin is warm and dry with no clubbing or cyanosis present. Subcutaneous emphysema to his left lateral chest. NEUROLOGIC: Cranial nerves II through XII intact MUSKULOSKELETAL: Able to move all extremities, strength equal bilaterally, gait normal PSYCHIATRIC: Alert and oriented to person place and time, appropriate affect, intact judgment and insight INVASIVE LINES AND TUBES: Left pleural chest tube in place to waterseal. Intermittent air leak is present with expiration. Draining thin serosanguineous drainage with 60 mL output in the last 24 hours. - Allied health notes Allied health notes reviewed: nursing - Labs CBC & Chem 7: 05/03/22 08:03 05/03/22 08:03 Labs: Abnormal Lab Results - Last 24 Hours (Table) 05/03/22 05/03/22 Range/Units 08:03 08:03 RBC 3.18 L (4.30-5.90) m/uL Hgb 10.5 L (13.0-17.5) gm/dL Hct 31.2 L (39.0-53.0) % Sodium 136 L (137-145) mmol/L Glucose 123 H (74-99) mg/dL - Imaging and Cardiology Chest x-ray: report reviewed, image reviewed Assessment and Plan Assessment: 1. Non-small cell lung cancer of the left upper lobe, status post video- assisted left thoracoscopic surgery, wedge resection of the left upper lobe nodule with mediastinal lymph node dissection 2. Severe chronic COPD with a preoperative FEV1 47% of predicted value 3. Hypertension 4. Hyperlipidemia 5. History of chronic nicotine dependence, quit smoking about 2 months ago 6. Gout 7. Osteoarthritis 8. Urinary retention, secondary to his underlying BPH Plan: 1. Continue left pleural chest tube to waterseal. Continue to monitor for airleak resolution. 2. Encourage use of incentive spirometry 10 times every hour while awake. 3. Out of bed for all meals, increase activity as tolerated. 4. Continue Flomax 0.4 mg by mouth daily for urinary retention. Continue to bladder scan every 6 hours and when necessary postvoid residual, if greater than 350 mL of urine reinsert Tinsley catheter. 5. Pain control per when necessary orders. 6. Pathology results remain pending. Continue to follow pathology results. 7. Continue to follow labs and daily chest x-ray. 8. Bronchodilators per pulmonary/critical care medicine recommendations. 9. More recommendations to follow based on patient's clinical course. Time with Patient: Greater than 30
--- NOTE | 2022-05-03 14:17 | P.PN ---
Subjective Progress Note Date: 05/03/22 This is a very pleasant 66-year-old male patient who has a history of cervical neck pain and subsequent surgery in February 2022, hyperlipidemia, hypertension, chronic tobacco dependence of 50 years, chronic obstructive pulmonary disease with an FEV1 value of 45% of predicted. He is also found to have a left upper lobe cavitary nodule measuring 17 by 11 mm. a PET scan dated 02/02/2022 revealed necrotic neoplastic mass in the left upper lobe with an SUV level is 6.3 as well as a neoplastic nodule in the soft tissue of the left trapezius muscle medial to the left scaphoid with an SUV level of 6.3. He was seen and evaluated by CT services who brought the patient in today electively for a video-assisted left thorascopic wedge resection of the upper lobe nodule. Mediastinal lymph node dissection. Postop diagnosis of his non-small cell lung cancer. He is seen today in consultation on the selective care unit. Currently resting fairly comfortably in bed. Awake and alert. He is maintaining good O2 saturations in the upper 90s on 2 L/m per nasal cannula. Left-sided chest tube in place her chest x-ray reviewed. No significant pneumothorax. Blood glucose 157. He has been initiated on DuoNeb inhalations. Heparin for DVT prophylaxis. D5 and half-normal saline at 50 MLS per hour. Antibiotics in the form of cefazolin. Educated regarding the use of the incentive spirometer. The patient is seen today 04/29/2022 and a follow-up on the selective care unit. He is currently sitting up in a chair at the bedside. Awake and alert in no acute distress. He is maintaining O2 saturations in the 90s on room air. He's afebrile. Hemodynamically stable. He is working well with the incentive spirometer. Left-sided chest tube remains in place to Pleur-evac and wall suction. Positive leak. Positive pneumothorax on today's chest x-ray. White count 15.3. Hemoglobin 10.2. Sodium 133. Potassium 4.9. BUN 24. Creatinine 0.82. Glucose 111. He remains on DuoNeb inhalations. Heparin for DVT prophylaxis. Pain is currently well controlled. The patient is seen today 04/30/2022 in follow-up on the selective care unit. He is currently sitting up in a chair at the bedside. Awake and alert in no acute distress. He is maintaining good O2 saturations in the 90s on 2 L/m per nasal cannula. He is working well with the incentive spirometer. Left-sided chest tube remains in place. Positive air leak. Chest x-ray does not reveal any significant pneumothorax. White count 9.4. Hemoglobin 10.9. Sodium 137. Potassium 4.5. BUN 23. Creatinine 0.75. Glucose 122. He remains on DuoNeb inhalations, Flovent. Heparin for DVT prophylaxis. NicoDerm patch in place. The patient is seen today 05/03/2022 in follow-up on the selective care unit. He is currently sitting up in bed. Awake and alert in no acute distress. Maintaining O2 saturations in the 90s on room air. Afebrile. Hemodynamically stable. Left-sided chest tube remains in place. Positive air leak. Connected to Pleur-evac. Currently off suction. Biopsy is positive for squamous cell carcinoma. Chest x-ray reveals left-sided chest tube in place. There is extensive subcutaneous emphysema noted over the left chest. Evidence of COPD. White count 8.5. Hemoglobin 10.5. Sodium 136. Potassium 5.1. BUN 20. Creatinine 0.73. He remains on heparin for DVT prophylaxis. Continued on bronchodilators. NicoDerm patch in place. Objective - Vital Signs Vital signs: Vital Signs Temp 97.4 F L 05/03/22 11:50 Pulse 76 05/03/22 12:10 Resp 16 05/03/22 11:50 BP 100/52 05/03/22 11:50 Pulse Ox 93 L 05/03/22 11:50 FiO2 21 05/02/22 01:57 Intake & Output 05/02/22 05/03/22 05/03/22 18:59 06:59 18:59 Intake Total 1318 0 Output Total 435 300 Balance 883 -300 0 Intake: Oral 1318 0 Output: Chest Tube Drainage 0 Left Posterior Chest 0 Urine 300 300 Post Void Residual 135 Other: Voiding Method Indwelling Catheter Urinal Urinal - Exam GENERAL EXAM: Alert, pleasant 66-year-old male patient, on room air, fairly comfortable in no apparent distress. HEAD: Normocephalic. EYES: Normal reaction of pupils, equal size. NOSE: Clear with pink turbinates. THROAT: No erythema or exudates. NECK: No masses, no JVD. CHEST: Left-sided chest with subcutaneous emphysema. Left sided chest tube in place to Pleur-evac. Positive leak. Surgical incisions clean dry well approximated LUNGS: Equal air entry with end expiratory wheeze, few scattered rhonchi, diminished. CVS: S1 and S2 normal with no audible murmur, regular rhythm. ABDOMEN: No hepatosplenomegaly, normal bowel sounds, no guarding or rigidity. SPINE: No scoliosis or deformity SKIN: No rashes CENTRAL NERVOUS SYSTEM: No focal deficits, tone is normal in all 4 extremities. EXTREMITIES: There is no peripheral edema. No clubbing, no cyanosis. Peripheral pulses are intact. - Labs CBC & Chem 7: 05/03/22 08:03 05/03/22 08:03 Labs: Abnormal Lab Results - Last 24 Hours (Table) 05/03/22 05/03/22 Range/Units 08:03 08:03 RBC 3.18 L (4.30-5.90) m/uL Hgb 10.5 L (13.0-17.5) gm/dL Hct 31.2 L (39.0-53.0) % Sodium 136 L (137-145) mmol/L Glucose 123 H (74-99) mg/dL Assessment and Plan Assessment: Left upper lobe necrotic cavitating mass measuring 1.3 x 2.2 x 1.5 cm as well as a 1.6 cm soft tissue density in the posterior back under the left trapezius muscle. Status post left upper lobe mass wedge resection positive for squamous cell carcinoma. Left-sided chest tube in place to Pleur-evac. Positive leak. No significant evidence of pneumothorax on today's chest x-ray. Acute hypoxemic respiratory failure with atelectasis secondary to above, expected outcome of surgery. Improved and on room air Chronic obstructive pulmonary disease with an FEV1 value 35% of predicted Chronic tobacco dependence of 50 years Hypertension Hyperlipidemia Cervical neck pain with subsequent surgery in February 2022 Plan: The patient was seen and evaluated Chest x-ray, medications and labs reviewed Currently stable and on room air Continue bronchodilators, heparin for DVT prophylaxis Continue the incentive spirometer Increase his activity as tolerated Chest tube continues with a leak Follow-up chest x-ray in the a.m. We will continue to follow I have personally seen and examined the patient, performed the documentation and the assessment and plan as written. Number of minutes spent on the visit: 10.
[2022-05-03] MEDS: ATORVASTATIN 10 MG TAB PO SCH (19:54)
[2022-05-03] MEDS: traMADol 50 MG TAB PO PRN (19:58)
[2022-05-04] MEDS: HEPARIN SODIUM,PORCINE/PF 5,000 UNIT/0.5 ML SYRINGE SQ SCH ×3 (01:22→17:20)
--- NOTE | 2022-05-04 01:28 | XR ---
EXAMINATION TYPE: XR chest 1V portable DATE OF EXAM: 05/04/2022 COMPARISON: Yesterday HISTORY: Wedge resection. Chest tube. TECHNIQUE: Single view FINDINGS: There is left-sided chest tube with the tip at the left lung apex. There is small left apic al pneumothorax. There are chest leads. There is soft tissue air on the left chest wall. Trachea is m idline. Heart size is normal. No heart failure. There is some left upper lobe perihilar infiltrate wi thout change. IMPRESSION: Small left apical pneumothorax without much change compared to yesterday. Normal heart. C hest tube in good position. Mild left upper lobe perihilar infiltrate.
[2022-05-04] MEDS: IPRATROPIUM-ALBUTEROL 3 ML NEB IH PRN (01:41)
[2022-05-04] MEDS: traMADol 50 MG TAB PO PRN ×3 (04:35→17:20)
[2022-05-04] MEDS: PANTOPRAZOLE 40 MG TABLET PO SCH (06:41)
--- NOTE | 2022-05-04 08:05 | XR ---
EXAMINATION TYPE: XR chest 1V portable DATE OF EXAM: 05/04/2022 COMPARISON: Chest x-ray 05/04/2022 HISTORY: Chest tube, postop VATS TECHNIQUE: Single frontal view of the chest is obtained. FINDINGS: Left-sided chest tube and subcutaneous emphysema persists. No sizable pneumothorax. No barbara dent effusion. Cardiac mediastinal silhouette is stable. Lungs show no interval change. IMPRESSION: Essentially stable exam.
[2022-05-04] MEDS: IPRATROPIUM-ALBUTEROL 3 ML NEB INHALATION SCH ×4 (08:09→19:35)
[2022-05-04] MEDS: FLUTICASONE 110 MCG INHALER INHALATION SCH ×2 (08:09→19:35)
[2022-05-04] MEDS: SENNOSIDES-DOCUSATE SODIUM 1 EACH TAB PO SCH ×2 (09:58→21:19)
[2022-05-04] MEDS: FERROUS SULFATE 325 MG TAB PO SCH (09:58)
[2022-05-04] MEDS: lisinopriL 10 MG TAB PO SCH (09:58)
[2022-05-04] MEDS: amLODIPine 10 MG TAB PO SCH (09:58)
[2022-05-04] MEDS: TAMSULOSIN 0.4 MG CAP.ER.24H PO SCH (09:58)
[2022-05-04] MEDS: NICOTINE 14MG/24HR PATCH TRANSDERM SCH (09:58)
[2022-05-04] MEDS: allopurinoL 100 MG TAB PO SCH ×2 (09:58→21:19)
[2022-05-04] MEDS: VIT A,C & E-LUTEIN-MINERALS 1 EACH TAB PO SCH (10:00)
--- NOTE | 2022-05-04 12:55 | P.PN ---
Subjective Progress Note Date: 05/04/22 Principal diagnosis: Non-small cell lung cancer of the left upper lobe. Past medical history significant for hypertension, hyperlipidemia, chronic tobacco dependence of 50 years, severe chronic obstructive pulmonary disease with a preoperative FEV1 value of 47% of predicted, gout and osteoarthritis. POD #6 bronchoscopy, video-assisted left thoracoscopic surgery, wedge resection of left upper lobe nodule, mediastinal lymph node dissection and intercostal nerve block with 0.5% Marcaine with epinephrine at 3 levels. The patient was seen and examined in follow-up today 05/04/2022 at his bedside on the cardiac stepdown unit. Currently he is sitting up to the bedside edge, is eating breakfast, is awake, alert, oriented 3 and is in no acute distress. The patient denies any complaints of pain or shortness of breath at this time. He does report that he had an episode last evening where he had a sharp pain to his left shoulder which resolved within a few minutes. Oxygen saturations are 97% on room air and he is achieving 1500 mL on his incentive spirometry with encouragement. Left pleural chest tube remains in place to water seal. Intermittent air leak is present with the patient speaking and with expiration. Draining thin serosanguineous drainage with 30 mL output in the last 24 hours. Pathology report came back yesterday which was discussed with the patient by Dr. Boothe and showed the left upper lobe wedge resection positive for invasive moderately invasive squamous cell carcinoma with visceral pleural invasion, parenchymal margin negative and his lymph nodes negative for metastasis. Remote telemetry showing normal sinus rhythm heart rate 62 BPM. Objective - Vital Signs Vital signs: Vital Signs Temp 97.8 F 05/04/22 04:00 Pulse 68 05/04/22 04:00 Resp 17 05/04/22 04:00 BP 104/54 05/04/22 04:00 Pulse Ox 98 05/04/22 04:00 FiO2 21 05/02/22 01:57 Intake & Output 05/03/22 05/04/22 05/04/22 18:59 06:59 18:59 Intake Total 1560 540 Output Total 590 350 Balance 970 190 Intake: Oral 1560 540 Output: Drainage 40 Left Chest 40 Urine 550 350 Other: Voiding Method Urinal Urinal # Voids 1 # Bowel Movements 1 - Exam CONSTITUTIONAL: Appears comfortable, cooperative, no acute distress RESPIRATORY: Lungs sounds diminished bilaterally. Respirations are symmetrical, nonlabored. Currently on room air with oxygen saturation 97%. Able to achieve 1500 mL on incentive spirometry. Strong cough. CARDIOVASCULAR: S1, S2 present. Regular rate and rhythm, sinus rhythm on remote telemetry. Palpable peripheral pulses bilaterally. No edema present. No calf pain or tenderness noted. SCDs present. GASTROINTESTINAL: Abdomen soft, nontender, nondistended. Active bowel sounds present 4 quadrants. Tolerating diet. GENITOURINARY: Continues to void. Urine output in the last 8 hours was 350 mL. INTEGUMENTARY: Skin is warm and dry with no clubbing or cyanosis present. Subcutaneous emphysema to his left lateral chest. NEUROLOGIC: Cranial nerves II through XII intact MUSKULOSKELETAL: Able to move all extremities, strength equal bilaterally, gait normal PSYCHIATRIC: Alert and oriented to person place and time, appropriate affect, intact judgment and insight INVASIVE LINES AND TUBES: Left pleural chest tube in place to waterseal. Intermittent air leak is present with expiration. Draining thin serosanguineous drainage with 30 mL output in the last 24 hours. - Allied health notes Allied health notes reviewed: nursing - Labs CBC & Chem 7: 05/03/22 08:03 05/03/22 08:03 Labs: Abnormal Lab Results - Last 24 Hours (Table) 05/03/22 05/03/22 Range/Units 08:03 08:03 RBC 3.18 L (4.30-5.90) m/uL Hgb 10.5 L (13.0-17.5) gm/dL Hct 31.2 L (39.0-53.0) % Sodium 136 L (137-145) mmol/L Glucose 123 H (74-99) mg/dL - Imaging and Cardiology Chest x-ray: report reviewed, image reviewed Assessment and Plan Assessment: 1. Non-small cell lung cancer of the left upper lobe, status post video-ass isted left thoracoscopic surgery, wedge resection of the left upper lobe nodule with mediastinal lymph node dissection 2. Severe chronic COPD with a preoperative FEV1 47% of predicted value 3. Hypertension 4. Hyperlipidemia 5. History of chronic nicotine dependence, quit smoking about 2 months ago 6. Gout 7. Osteoarthritis 8. Urinary retention, secondary to his underlying BPH 9. Cervical neck pain with subsequent surgery in February 2022 Plan: 1. Continue left pleural chest tube to waterseal. Continue to monitor for airleak resolution. 2. Encourage use of incentive spirometry 10 times every hour while awake. 3. Out of bed for all meals, increase activity as tolerated. 4. Continue Flomax 0.4 mg by mouth daily for urinary retention. Continue to bladder scan every 6 hours and when necessary postvoid residual, if greater than 350 mL of urine reinsert Tinsley catheter. 5. Pain control per when necessary orders. 6. Pathology results showed invasive moderately invasive squamous cell carcinoma with visceral pleural invasion, parenchymal margins were negative and lymph nodes negative for metastasis. This was discussed with the patient by Dr. Boothe. 7. Continue to follow daily chest x-ray. 8. Bronchodilators per pulmonary/critical care medicine recommendations. 9. More recommendations to follow based on patient's clinical course. Time with Patient: Greater than 30
--- NOTE | 2022-05-04 15:13 | P.PN ---
Subjective Progress Note Date: 05/04/22 This is a very pleasant 66-year-old male patient who has a history of cervical neck pain and subsequent surgery in February 2022, hyperlipidemia, hypertension, chronic tobacco dependence of 50 years, chronic obstructive pulmonary disease with an FEV1 value of 45% of predicted. He is also found to have a left upper lobe cavitary nodule measuring 17 by 11 mm. a PET scan dated 02/02/2022 revealed necrotic neoplastic mass in the left upper lobe with an SUV level is 6.3 as well as a neoplastic nodule in the soft tissue of the left trapezius muscle medial to the left scaphoid with an SUV level of 6.3. He was seen and evaluated by CT services who brought the patient in today electively for a video-assisted left thorascopic wedge resection of the upper lobe nodule. Mediastinal lymph node dissection. Postop diagnosis of his non-small cell lung cancer. He is seen today in consultation on the selective care unit. Currently resting fairly comfortably in bed. Awake and alert. He is maintaining good O2 saturations in the upper 90s on 2 L/m per nasal cannula. Left-sided chest tube in place her chest x-ray reviewed. No significant pneumothorax. Blood glucose 157. He has been initiated on DuoNeb inhalations. Heparin for DVT prophylaxis. D5 and half-normal saline at 50 MLS per hour. Antibiotics in the form of cefazolin. Educated regarding the use of the incentive spirometer. The patient is seen today 04/29/2022 and a follow-up on the selective care unit. He is currently sitting up in a chair at the bedside. Awake and alert in no acute distress. He is maintaining O2 saturations in the 90s on room air. He's afebrile. Hemodynamically stable. He is working well with the incentive spirometer. Left-sided chest tube remains in place to Pleur-evac and wall suction. Positive leak. Positive pneumothorax on today's chest x-ray. White count 15.3. Hemoglobin 10.2. Sodium 133. Potassium 4.9. BUN 24. Creatinine 0.82. Glucose 111. He remains on DuoNeb inhalations. Heparin for DVT prophylaxis. Pain is currently well controlled. The patient is seen today 04/30/2022 in follow-up on the selective care unit. He is currently sitting up in a chair at the bedside. Awake and alert in no acute distress. He is maintaining good O2 saturations in the 90s on 2 L/m per nasal cannula. He is working well with the incentive spirometer. Left-sided chest tube remains in place. Positive air leak. Chest x-ray does not reveal any significant pneumothorax. White count 9.4. Hemoglobin 10.9. Sodium 137. Potassium 4.5. BUN 23. Creatinine 0.75. Glucose 122. He remains on DuoNeb inhalations, Flovent. Heparin for DVT prophylaxis. NicoDerm patch in place. The patient is seen today 05/03/2022 in follow-up on the selective care unit. He is currently sitting up in bed. Awake and alert in no acute distress. Maintaining O2 saturations in the 90s on room air. Afebrile. Hemodynamically stable. Left-sided chest tube remains in place. Positive air leak. Connected to Pleur-evac. Currently off suction. Biopsy is positive for squamous cell carcinoma. Chest x-ray reveals left-sided chest tube in place. There is extensive subcutaneous emphysema noted over the left chest. Evidence of COPD. White count 8.5. Hemoglobin 10.5. Sodium 136. Potassium 5.1. BUN 20. Creatinine 0.73. He remains on heparin for DVT prophylaxis. Continued on bronchodilators. NicoDerm patch in place. Keep the patient is seen today 05/04/2022 in follow-up on the selective care unit. He is currently resting comfortably in bed. Awake and alert in no acute distress. Continues to maintain good O2 saturations in the 90s on room air. Chest x-ray continues to reveal a left-sided chest tube and subcutaneous emphysema. No sizable pneumothorax. No interval change. Chest tube remains attached to Pleur-evac to waterseal. Air leak continues. He continues to work well with the incentive spirometer. Continues on bronchodilators. Heparin for DVT prophylaxis. NicoDerm patch in place. Objective - Vital Signs Vital signs: Vital Signs Temp 98.3 F 05/04/22 12:05 Pulse 75 05/04/22 12:05 Resp 16 05/04/22 12:05 BP 101/43 05/04/22 12:05 Pulse Ox 94 L 05/04/22 12:05 FiO2 21 05/02/22 01:57 Intake & Output 10/25/22 10/26/22 10/26/22 18:59 06:59 18:59 Intake Total 1560 540 360 Output Total 590 350 0 Balance 970 190 360 Intake: Oral 1560 540 360 Output: Drainage 40 Left Chest 40 Urine 550 350 Stool 0 Other: Voiding Method Urinal Urinal Urinal # Voids 1 # Bowel Movements 1 - Exam GENERAL EXAM: Alert, pleasant 66-year-old male patient, on room air, comfortable in no apparent distress. HEAD: Normocephalic. EYES: Normal reaction of pupils, equal size. NOSE: Clear with pink turbinates. THROAT: No erythema or exudates. NECK: No masses, no JVD. CHEST: Left-sided chest with subcutaneous emphysema. Left sided chest tube in place to Pleur-evac, water seal. Positive leak. Surgical incisions clean dry well approximated LUNGS: Equal air entry with end expiratory wheeze, few scattered rhonchi, diminished. CVS: S1 and S2 normal with no audible murmur, regular rhythm. ABDOMEN: No hepatosplenomegaly, normal bowel sounds, no guarding or rigidity. SPINE: No scoliosis or deformity SKIN: No rashes CENTRAL NERVOUS SYSTEM: No focal deficits, tone is normal in all 4 extremities. EXTREMITIES: There is no peripheral edema. No clubbing, no cyanosis. Peripheral pulses are intact. - Labs CBC & Chem 7: 05/03/22 08:03 05/03/22 08:03 Assessment and Plan Assessment: Left upper lobe necrotic cavitating mass measuring 1.3 x 2.2 x 1.5 cm as well as a 1.6 cm soft tissue density in the posterior back under the left trapezius muscle. Status post left upper lobe mass wedge resection positive for squamous cell carcinoma. Left-sided chest tube in place to Pleur-evac, waterseal. Positive leak. No significant evidence of pneumothorax on chest x-ray. Acute hypoxemic respiratory failure with atelectasis secondary to above, expected outcome of surgery. Improved and on room air Chronic obstructive pulmonary disease with an FEV1 value 35% of predicted Chronic tobacco dependence of 50 years Hypertension Hyperlipidemia Cervical neck pain with subsequent surgery in February 2022 Plan: The patient was seen and evaluated Chest x-ray, medications reviewed Currently stable and on room air Continue bronchodilators, heparin for DVT prophylaxis Continue the incentive spirometer Increase his activity as tolerated Chest tube remains in place, waterseal, continues with a leak Follow-up chest x-ray in the a.m. We will continue to follow I have personally seen and examined the patient, performed the documentation and the assessment and plan as written. Number of minutes spent on the visit: 10.
[2022-05-04] MEDS: ATORVASTATIN 10 MG TAB PO SCH (21:19)
[2022-05-05] MEDS: HEPARIN SODIUM,PORCINE/PF 5,000 UNIT/0.5 ML SYRINGE SQ SCH ×4 (00:09→22:59)
[2022-05-05] MEDS: IPRATROPIUM-ALBUTEROL 3 ML NEB IH PRN (01:36)
[2022-05-05] MEDS: traMADol 50 MG TAB PO PRN ×3 (06:35→20:23)
[2022-05-05] MEDS: PANTOPRAZOLE 40 MG TABLET PO SCH (06:35)
[2022-05-05] MEDS: IPRATROPIUM-ALBUTEROL 3 ML NEB INHALATION SCH ×4 (07:24→21:04)
[2022-05-05] MEDS: FLUTICASONE 110 MCG INHALER INHALATION SCH ×2 (07:24→21:04)
--- NOTE | 2022-05-05 07:50 | P.PN ---
Subjective Progress Note Date: 05/05/22 Principal diagnosis: Non-small cell lung cancer of the left upper lobe. Previuos medical history of hypertension, hyperlipidemia, chronic tobacco dependence of 50 years, severe ch ronic obstructive pulmonary disease, gout and osteoarthritis. POD #7 bronchoscopy, video-assisted left thoracoscopic surgery, wedge resection of left upper lobe nodule, mediastinal lymph node dissection and intercostal nerve block with 0.5% Marcaine with epinephrine at 3 levels. Prolonged air leak >5 days The patient was seen and examined sitting up in bed on the cardiac stepdown unit in no acute distress eating breakfast. He denies any post surgical pain or shortness of breath. Left pleural chest tube remains in place to waterseal with continued air leak present. Currently on room air with oxygen saturation in the low 90s and able to achieve 1250 mL on his incentive spirometer. He has been ambulatory without difficulty. Chest x-ray reviewed this morning. No other new concerns. Objective - Vital Signs Vital signs: Vital Signs Temp 98.2 F 05/05/22 04:00 Pulse 84 05/05/22 07:36 Resp 14 05/05/22 04:00 BP 118/61 05/05/22 04:00 Pulse Ox 92 L 05/05/22 07:25 FiO2 21 05/02/22 01:57 Intake & Output 05/04/22 05/05/22 05/05/22 18:59 06:59 18:59 Intake Total 540 Output Total 400 10 Balance 140 -10 Intake: Oral 540 Output: Drainage 10 Left Chest 10 Urine 400 Stool 0 Other: Voiding Method Urinal Urinal # Voids 1 # Bowel Movements 1 - Exam CONSTITUTIONAL: Appears comfortable, cooperative, no acute distress RESPIRATORY: Lungs sounds diminished bilaterally, left greater than right. Respirations even, nonlabored. Currently on room air with oxygen saturation 92 %. Able to achieve 1250 mL on incentive spirometry. Strong cough. CARDIOVASCULAR: S1, S2 present. Regular rate and rhythm, sinus rhythm on telemetry. Palpable peripheral pulses bilaterally. No edema present. No calf pain or tenderness noted. SCDs present. GASTROINTESTINAL: Abdomen soft, nontender, nondistended. Active bowel sounds present 4 quadrants. Tolerating diet. Positive bowel movement 05/05 GENITOURINARY: Continues to void INTEGUMENTARY: Skin is warm and dry with evidence of good perfusion. Thoracic incision well approximated and covered with dry intact dressing. NEUROLOGIC: Cranial nerves II through XII intact MUSKULOSKELETAL: Able to move all extremities, strength equal bilaterally, gait normal PSYCHIATRIC: Alert and oriented to person place and time, appropriate affect, intact judgment and insight INVASIVE LINES AND TUBES: Left pleural chest tube present to waterseal, air leaks present with expiration and talking, 10 mL serosanguineous drainage overnight, 50 mL in the last 24 hours - Allied health notes Allied health notes reviewed: nursing - Labs CBC & Chem 7: 05/03/22 08:03 05/03/22 08:03 - Imaging and Cardiology Chest x-ray: image reviewed Assessment and Plan Assessment: 1. Non-small cell lung cancer of the left upper lobe, final pathology consistent with [id number] stage IB moderately invasive squamous cell carcinoma with visceral pleural invasion, status post bronchoscopy, video-assisted left thoracoscopic surgery, wedge resection of left upper lobe nodule, mediastinal lymph node dissection 2. History of hypertension 3. History of hyperlipidemia 4. Chronic tobacco dependence of 50 years 5. Severe chronic obstructive pulmonary disease with preoperative FEV1 47% of predicted 6. Gout 7. Osteoarthritis 8. Urinary retention, secondary to underlying BPH 9. Prolonged air leak Plan: 1. Continue left pleural chest tube to waterseal. Continue to monitor for airleak resolution. 2. Encourage use of incentive spirometry 10 times every hour while awake. 3. Out of bed for all meals, increase activity as tolerated. 4. Continue Flomax 0.4 mg by mouth daily for urinary retention 5. Pain control per current medication regimen 6. Pathology results reviewed with the patient by Dr. Boothe 7. Continue to follow labs and daily chest x-ray. 8. Bronchodilators per pulmonary. 9. More recommendations to follow based on patient's clinical course.
[2022-05-05 08:31] LABS: HCT 32.9 % (39.0-53.0); HGB 11.1 gm/dL (13.0-17.5); MCH 32.9 pg (25.0-35.0); MCHC 33.6 g/dL (31.0-37.0); MCV 97.9 fL (80.0-100.0); Mean Platelet Volume 8.1; Platelet Count 382 k/uL (150-450); RBC 3.37 m/uL (4.30-5.90); WBC 10.1 k/uL (3.8-10.6)
[2022-05-05 08:39] LABS: African American GFR (CKD) >90 (>60 ml/min/1.73 sqM); Anion Gap 12 mmol/L; Blood Urea Nitrogen 27 mg/dL (9-20); Calcium 9.5 mg/dL (8.4-10.2); Carbon Dioxide 21 mmol/L (22-30); Chloride 100 mmol/L (98-107); Glucose 89 mg/dL (74-99); Non-African American GFR(CKD) >90 (>60 ml/min/1.73 sqM); Potassium 5.3 mmol/L (3.5-5.1); Sodium 133 mmol/L (137-145)
[2022-05-05] MEDS: NICOTINE 14MG/24HR PATCH TRANSDERM SCH (09:15)
[2022-05-05] MEDS: allopurinoL 100 MG TAB PO SCH ×2 (09:15→20:23)
[2022-05-05] MEDS: amLODIPine 10 MG TAB PO SCH (09:16)
[2022-05-05] MEDS: TAMSULOSIN 0.4 MG CAP.ER.24H PO SCH (09:16)
[2022-05-05] MEDS: lisinopriL 10 MG TAB PO SCH (09:16)
[2022-05-05] MEDS: SENNOSIDES-DOCUSATE SODIUM 1 EACH TAB PO SCH ×2 (09:16→20:23)
[2022-05-05] MEDS: VIT A,C & E-LUTEIN-MINERALS 1 EACH TAB PO SCH (09:16)
[2022-05-05] MEDS: FERROUS SULFATE 325 MG TAB PO SCH (09:16)
--- NOTE | 2022-05-05 09:18 | XR ---
EXAMINATION TYPE: XR chest 2V DATE OF EXAM: 05/05/2022 COMPARISON: Chest x-ray 05/04/2022 HISTORY: Postop VATS, chest tube TECHNIQUE: Frontal and lateral views of the chest are obtained. FINDINGS: Findings are similar to prior exam. Left-sided chest tube is in place. Left apical pneumot horax is present. Subcutaneous emphysema is noted. Postop changes noted to the cervical spine, cardia c mediastinal sweat is stable, aorta is dense. There is eventration of right hemidiaphragm. Right natalia g is clear. IMPRESSION: Interval development of a small left apical pneumothorax
[2022-05-05 12:56] VITALS: BMI 21.0
--- NOTE | 2022-05-05 13:26 | P.PN ---
Subjective Progress Note Date: 05/05/22 Principal diagnosis: Pulmonary nodule. Status post was resection of left upper lobe nodule, mediastinal node dissection and intercostal nerve block postoperative day #3 This is a very pleasant 66-year-old male patient who has a history of cervical neck pain and subsequent surgery in February 2022, hyperlipidemia, hypertension, chronic tobacco dependence of 50 years, chronic obstructive pulmonary disease with an FEV1 value of 45% of predicted. He is also found to have a left upper lobe cavitary nodule measuring 17 by 11 mm. a PET scan dated 02/02/2022 revealed necrotic neoplastic mass in the left upper lobe with an SUV level is 6.3 as well as a neoplastic nodule in the soft tissue of the left trapezius muscle medial to the left scaphoid with an SUV level of 6.3. He was seen and evaluated by CT services who brought the patient in today electively for a video-assisted left thorascopic wedge resection of the upper lobe nodule. Mediastinal lymph node dissection. Postop diagnosis of his non-small cell lung cancer. He is seen today in consultation on the selective care unit. Currently resting fairly comfortably in bed. Awake and alert. He is maintaining good O2 saturations in the upper 90s on 2 L/m per nasal cannula. Left-sided chest tube in place her chest x-ray reviewed. No significant pneumothorax. Blood glucose 157. He has been initiated on DuoNeb inhalations. Heparin for DVT prophylaxis. D5 and half-normal saline at 50 MLS per hour. Antibiotics in the form of cefazolin. Educated regarding the use of the incentive spirometer. The patient is seen today 04/29/2022 and a follow-up on the selective care unit. He is currently sitting up in a chair at the bedside. Awake and alert in no acute distress. He is maintaining O2 saturations in the 90s on room air. He's afebrile. Hemodynamically stable. He is working well with the incentive s pirometer. Left-sided chest tube remains in place to Pleur-evac and wall suction. Positive leak. Positive pneumothorax on today's chest x-ray. White count 15.3. Hemoglobin 10.2. Sodium 133. Potassium 4.9. BUN 24. Creatinine 0.82. Glucose 111. He remains on DuoNeb inhalations. Heparin for DVT prophylaxis. Pain is currently well controlled. Reevaluated today on 05/01/22, patient is doing great, asymptomatic, continues to have chest tube in place, however is off suction. Chest x-ray showed minimal subcutaneous emphysema, intermittent air leak noted in the chest tube. Progress note dated 05/02/2022. The patient is again seen today in room 376. The patient has significant subcut aneous emphysema on his chest x-ray. The left-sided chest tube is still present. There is a clear-cut leak noted. The patient's currently on room air. He denies being short of breath. White count 8.7, hemoglobin 10.7, hematocrit 31.1, and platelet count 276,000. Sodium 135, potassium 4.4, chlorides 103, CO2 23, anion gap 9, BUN 21, creatinine 0.65. Calcium is 9. Magnesium is 1.7. Chest x-ray from May 02, show significant subcutaneous emphysema. There is also an apically placed left-sided chest tube, and possibly a small left apical pneumothorax. Progress note dated 05/05/2022. The patient is again seen today in room 376. He's currently on room air. He's not receiving any IV fluids. He looks very comfortable. Unfortunately, the patient still has a significant air leak, from that left-sided chest tube. For that reason, the chest tube is still in place. Chest x-ray is reviewed. Laboratory data includes a white count of 10.1, hemoglobin 11.1, hematocrit 39, and a platelet count of 382,000. Sodium 133, potassium 5.3, chlorides 100, CO2 21, anion gap 12, BUN 27, and creatinine 0.85. Today's chest x-ray shows ongoing subcutaneous emphysema, and a small left apical pneumothorax. Objective - Vital Signs Vital signs: Vital Signs Temp 98.1 F 05/05/22 08:55 Pulse 70 05/05/22 11:30 Resp 16 05/05/22 08:55 BP 105/57 05/05/22 08:55 Pulse Ox 90 L 05/05/22 08:55 FiO2 21 05/02/22 01:57 Intake & Output 05/04/22 05/05/22 05/05/22 18:59 06:59 18:59 Intake Total 540 180 Output Total 400 10 0 Balance 140 -10 180 Weight 59.1 kg Intake: Oral 540 180 Output: Drainage 10 Left Chest 10 Urine 400 Stool 0 0 Other: Voiding Method Urinal Urinal Urinal # Voids 1 # Bowel Movements 1 - Exam No acute distress, oriented 3. Currently on room air. Saturations are 90 %. HEENT examination is grossly unremarkable. Neck supple. Full range of motion. No adenopathy thyromegaly or neck vein distention. Cardiovascular examination reveals regular rhythm rate. S1-S2 normal. No S3 or S4. No discernible murmur noted. Heart rate 70 bpm. Lungs reveal mild to moderate scattered rhonchi. No wheezes. No crackles. Subcutaneous emphysema is appreciated. Abdomen soft bowel sounds are heard. No masses or tenderness. Extremities are intact. No cyanosis clubbing or edema. Skin is without rash or lesion. Neurologic examination is brief but nonfocal. - Labs CBC & Chem 7: 05/05/22 07:32 05/05/22 07:32 Labs: Abnormal Lab Results - Last 24 Hours (Table) 05/05/22 05/05/22 Range/Units 07:32 07:32 RBC 3.37 L (4.30-5.90) m/uL Hgb 11.1 L (13.0-17.5) gm/dL Hct 32.9 L (39.0-53.0) % Sodium 133 L (137-145) mmol/L Potassium 5.3 H (3.5-5.1) mmol/L Carbon Dioxide 21 L (22-30) mmol/L BUN 27 H (9-20) mg/dL Assessment and Plan Assessment: 1.3 x 2.2 x 1.5 cm left upper lobe necrotic cavitating mass, status post left upper lobe wedge resection for suspected non-small cell carcinoma, postop day #7. 1.6 cm soft tissue density, posterior back, under the left trapezius muscle. COPD, with an FEV1 of 35% of predicted. Chronic tobacco dependence of greater than 50 years. History of hypertension. History of hyperlipidemia. Cervical neck pain, with subsequent surgery, February 2022. Plan: Plan dated 05/02/2022. Currently, pathologic specimens are pending. The patient is thought to have non-small cell lung cancer. The patient continues with a left chest tube in place. There may be a small apical pneumothorax on the left. There is considerable subcutaneous emphysema in the left neck and chest area. His, and medications are reviewed. Prognosis is certainly guarded. We will await the results of the pathology evaluation. Plan dated 05/05/2022. The patient is postop day #7. Chest tube still in place. There is a small left apical pneumothorax. There is persistent subcutaneous emphysema. Left upper lobe wedge resection is positive for moderately invasive squamous cell carcinoma, with visceral pleural invasion. The patient has been followed on a daily basis, by our group, and cardiothoracic surgery. Clinically, he looks very stable. He is on room air. He has no specific complaints. Additional r ecommendations and suggestions are forthcoming. Labs, x-rays, and medications are all reviewed. Time with Patient: Less than 30
[2022-05-05] MEDS: ATORVASTATIN 10 MG TAB PO SCH (20:23)
[2022-05-05] MEDS: KETOROLAC 15 MG/ML 1 ML VIAL IVP PRN (22:59)
[2022-05-06] MEDS: traMADol 50 MG TAB PO PRN (04:20)
[2022-05-06] MEDS: IPRATROPIUM-ALBUTEROL 3 ML NEB IH PRN (05:16)
[2022-05-06] MEDS: PANTOPRAZOLE 40 MG TABLET PO SCH (06:01)
[2022-05-06] MEDS: FLUTICASONE 110 MCG INHALER INHALATION SCH ×3 (07:24→19:48)
[2022-05-06] MEDS: IPRATROPIUM-ALBUTEROL 3 ML NEB INHALATION SCH ×5 (07:24→19:48)
--- NOTE | 2022-05-06 07:29 | P.PN ---
Subjective Progress Note Date: 05/06/22 Principal diagnosis: Non-small cell lung cancer of the left upper lobe. Previuos medical history of hypertension, hyperlipidemia, chronic tobacco dependence of 50 years, severe ch ronic obstructive pulmonary disease, gout and osteoarthritis. POD #8 bronchoscopy, video-assisted left thoracoscopic surgery, wedge resection of left upper lobe nodule, mediastinal lymph node dissection and intercostal nerve block with 0.5% Marcaine with epinephrine at 3 levels. Prolonged air leak >5 days Urine retention requiring replacement of jones catheter The patient was seen and examined sitting up in a recliner on the cardiac stepdown unit in no acute distress. He denies any post surgical pain or shortness of breath. Left pleural chest tube remains in place to waterseal with air leak present with coughing. Currently on room air with oxygen saturation in the low 90s and able to achieve 1500 mL on his incentive spirometer. He has been ambulatory without difficulty. Chest x-ray reviewed this morning. Patient has been voiding over the last couple of days, however this morning he voided about 400 mL but still felt like he had urine which he could not get out, he was bladder scanned for almost 500 mL residual and Jones catheter was replaced her urologist orders. No other new concerns. Objective - Vital Signs Vital signs: Vital Signs Temp 98 F 05/05/22 23:26 Pulse 76 05/06/22 05:27 Resp 18 05/06/22 03:15 BP 107/59 05/06/22 03:15 Pulse Ox 90 L 05/06/22 03:15 FiO2 21 05/02/22 01:57 Intake & Output 05/05/22 05/06/22 05/06/22 18:59 06:59 18:59 Intake Total 180 Output Total 600 1200 Balance -420 -1200 Weight 59.1 kg Intake: Oral 180 Output: Drainage 0 Left Chest 0 Urine 600 1200 Uretheral (Jones) 800 Stool 0 Other: Voiding Method Urinal Indwelling Catheter - Exam CONSTITUTIONAL: Appears comfortable, cooperative, no acute distress RESPIRATORY: Lungs sounds diminished bilaterally, left greater than right. Respirations even, nonlabored. Currently on room air with oxygen saturation 92%. Able to achieve 1500 mL on incentive spirometry. Strong cough. CARDIOVASCULAR: S1, S2 present. Regular rate and rhythm, sinus rhythm on telemetry. Palpable peripheral pulses bilaterally. No edema present. No calf pain or tenderness noted. SCDs present. GASTROINTESTINAL: Abdomen soft, nontender, nondistended. Active bowel sounds present 4 quadrants. Tolerating diet. Positive bowel movement 05/05 GENITOURINARY: Jones catheter present, draining clear, yellow urine INTEGUMENTARY: Skin is warm and dry with evidence of good perfusion. Thoracic incision well approximated and covered with dry intact dressing. NEUROLOGIC: Cranial nerves II through XII intact MUSKULOSKELETAL: Able to move all extremities, strength equal bilaterally, gait normal PSYCHIATRIC: Alert and oriented to person place and time, appropriate affect, intact judgment and insight INVASIVE LINES AND TUBES: Left pleural chest tube present to waterseal, air leaks present with coughing, 20 mL serosanguineous drainage in the last 24 hours - Allied health notes Allied health notes reviewed: nursing - Labs CBC & Chem 7: 05/05/22 07:32 05/05/22 07:32 Labs: Abnormal Lab Results - Last 24 Hours (Table) 05/05/22 05/05/22 Range/Units 07:32 07:32 RBC 3.37 L (4.30-5.90) m/uL Hgb 11.1 L (13.0-17.5) gm/dL Hct 32.9 L (39.0-53.0) % Sodium 133 L (137-145) mmol/L Potassium 5.3 H (3.5-5.1) mmol/L Carbon Dioxide 21 L (22-30) mmol/L BUN 27 H (9-20) mg/dL - Imaging and Cardiology Chest x-ray: image reviewed Assessment and Plan Assessment: 1. Non-small cell lung cancer of the left upper lobe, final pathology consiste nt with [id number] stage IB moderately invasive squamous cell carcinoma with visceral pleural invasion, status post bronchoscopy, video-assisted left thoracoscopic surgery, wedge resection of left upper lobe nodule, mediastinal lymph node dissection 2. History of hypertension 3. History of hyperlipidemia 4. Chronic tobacco dependence of 50 years 5. Severe chronic obstructive pulmonary disease with preoperative FEV1 47% of predicted 6. Gout 7. Osteoarthritis 8. Urinary retention, secondary to underlying BPH 9. Prolonged air leak Plan: 1. Continue left pleural chest tube to waterseal. Continue to monitor for airleak resolution. May consider discharging patient to home with Pneumostat device in place until airleak resolution 2. Encourage use of incentive spirometry 10 times every hour while awake. 3. Out of bed for all meals, increase activity as tolerated. 4. Continue Flomax 0.4 mg by mouth daily for urinary retention. Jones replaced, will send UA. Will have patient follow up with urology outpatient 5. Pain control per current medication regimen 6. Pathology results reviewed with the patient by Dr. Boothe 7. Continue to follow labs and daily chest x-ray. 8. Bronchodilators per pulmonary. 9. More recommendations to follow based on patient's clinical course.
--- NOTE | 2022-05-06 08:06 | XR ---
EXAMINATION TYPE: XR chest 2V DATE OF EXAM: 05/06/2022 6:15 AM COMPARISON: Chest radiograph from one day prior. TECHNIQUE: XR chest 2V Frontal and lateral views of the chest. CLINICAL INDICATION:Male, 66 years old with history of post wedge resection; FINDINGS: Lungs/Pleura: There is no evidence of pleural effusion, focal consolidation. Pulmonary vascularity: Unremarkable. Heart/mediastinum: Cardiomediastinal silhouette is unremarkable. Atherosclerotic calcifications are seen in the aorta. Musculoskeletal: No acute osseous pathology. Other findings: Subcutaneous emphysema scattered along the left lateral chest wall. Lines/Tubes: Left thoracotomy tube is present without evidence with small pneumothorax which is similar prior. IMPRESSION: Thoracotomy tube in place with small pneumothorax. Similar to prior.
[2022-05-06] MEDS: allopurinoL 100 MG TAB PO SCH ×2 (09:35→21:43)
[2022-05-06] MEDS: HEPARIN SODIUM,PORCINE/PF 5,000 UNIT/0.5 ML SYRINGE SQ SCH ×3 (09:35→23:39)
[2022-05-06] MEDS: FERROUS SULFATE 325 MG TAB PO SCH (09:35)
[2022-05-06] MEDS: amLODIPine 10 MG TAB PO SCH (09:35)
[2022-05-06] MEDS: TAMSULOSIN 0.4 MG CAP.ER.24H PO SCH (09:35)
[2022-05-06] MEDS: lisinopriL 10 MG TAB PO SCH (09:35)
[2022-05-06] MEDS: SENNOSIDES-DOCUSATE SODIUM 1 EACH TAB PO SCH ×2 (09:35→21:43)
[2022-05-06] MEDS: NICOTINE 14MG/24HR PATCH TRANSDERM SCH (09:36)
[2022-05-06] MEDS: VIT A,C & E-LUTEIN-MINERALS 1 EACH TAB PO SCH (09:36)
[2022-05-06 12:14] LABS: HCT 30.4 % (39.0-53.0); HGB 10.1 gm/dL (13.0-17.5); MCH 32.4 pg (25.0-35.0); MCHC 33.3 g/dL (31.0-37.0); MCV 97.5 fL (80.0-100.0); Mean Platelet Volume 7.4; Platelet Count 339 k/uL (150-450); RBC 3.12 m/uL (4.30-5.90); RDW 12.9 % (11.5-15.5); WBC 8.2 k/uL (3.8-10.6)
[2022-05-06 12:29] LABS: African American GFR (CKD) >90 (>60 ml/min/1.73 sqM); Anion Gap 9 mmol/L; Blood Urea Nitrogen 32 mg/dL (9-20); Calcium 9.2 mg/dL (8.4-10.2); Carbon Dioxide 22 mmol/L (22-30); Chloride 99 mmol/L (98-107); Glucose 95 mg/dL (74-99); Non-African American GFR(CKD) 80 (>60 ml/min/1.73 sqM); Potassium 5.4 mmol/L (3.5-5.1); Sodium 130 mmol/L (137-145)
--- NOTE | 2022-05-06 15:27 | P.PN ---
Subjective Progress Note Date: 05/06/22 Principal diagnosis: Pulmonary nodule. Status post was resection of left upper lobe nodule, mediastinal node dissection and intercostal nerve block postoperative day #3 This is a very pleasant 66-year-old male patient who has a history of cervical neck pain and subsequent surgery in February 2022, hyperlipidemia, hypertension, chronic tobacco dependence of 50 years, chronic obstructive pulmonary disease with an FEV1 value of 45% of predicted. He is also found to have a left upper lobe cavitary nodule measuring 17 by 11 mm. a PET scan dated 02/02/2022 revealed necrotic neoplastic mass in the left upper lobe with an SUV level is 6.3 as well as a neoplastic nodule in the soft tissue of the left trapezius muscle medial to the left scaphoid with an SUV level of 6.3. He was seen and evaluated by CT services who brought the patient in today electively for a video-assisted left thorascopic wedge resection of the upper lobe nodule. Mediastinal lymph node dissection. Postop diagnosis of his non-small cell lung cancer. He is seen today in consultation on the selective care unit. Currently resting fairly comfortably in bed. Awake and alert. He is maintaining good O2 saturations in the upper 90s on 2 L/m per nasal cannula. Left-sided chest tube in place her chest x-ray reviewed. No significant pneumothorax. Blood glucose 157. He has been initiated on DuoNeb inhalations. Heparin for DVT prophylaxis. D5 and half-normal saline at 50 MLS per hour. Antibiotics in the form of cefazolin. Educated regarding the use of the incentive spirometer. The patient is seen today 04/29/2022 and a follow-up on the selective care unit. He is currently sitting up in a chair at the bedside. Awake and alert in no acute distress. He is maintaining O2 saturations in the 90s on room air. He's afebrile. Hemodynamically stable. He is working well with the incentive s pirometer. Left-sided chest tube remains in place to Pleur-evac and wall suction. Positive leak. Positive pneumothorax on today's chest x-ray. White count 15.3. Hemoglobin 10.2. Sodium 133. Potassium 4.9. BUN 24. Creatinine 0.82. Glucose 111. He remains on DuoNeb inhalations. Heparin for DVT prophylaxis. Pain is currently well controlled. Reevaluated today on 05/01/22, patient is doing great, asymptomatic, continues to have chest tube in place, however is off suction. Chest x-ray showed minimal subcutaneous emphysema, intermittent air leak noted in the chest tube. Progress note dated 05/02/2022. The patient is again seen today in room 376. The patient has significant subcut aneous emphysema on his chest x-ray. The left-sided chest tube is still present. There is a clear-cut leak noted. The patient's currently on room air. He denies being short of breath. White count 8.7, hemoglobin 10.7, hematocrit 31.1, and platelet count 276,000. Sodium 135, potassium 4.4, chlorides 103, CO2 23, anion gap 9, BUN 21, creatinine 0.65. Calcium is 9. Magnesium is 1.7. Chest x-ray from May 02, show significant subcutaneous emphysema. There is also an apically placed left-sided chest tube, and possibly a small left apical pneumothorax. Progress note dated 05/05/2022. The patient is again seen today in room 376. He's currently on room air. He's not receiving any IV fluids. He looks very comfortable. Unfortunately, the patient still has a significant air leak, from that left-sided chest tube. For that reason, the chest tube is still in place. Chest x-ray is reviewed. Laboratory data includes a white count of 10.1, hemoglobin 11.1, hematocrit 39, and a platelet count of 382,000. Sodium 133, potassium 5.3, chlorides 100, CO2 21, anion gap 12, BUN 27, and creatinine 0.85. Today's chest x-ray shows ongoing subcutaneous emphysema, and a small left apical pneumothorax. Progress note dated 05/06/2022. The patient is seen in room 376. He remains on room air. He is not receiving IV fluids. The patient still has a leak from his left chest tube. The left chest tube is off of suction. The patient does not appear to have any distress. White count 8.2, hemoglobin 10.1 hematocrit 30.4, and platelet count 339,000. Sodium 130, potassium 5.4, chlorides 99, CO2 22, BUN 32, creatinine 0.98. Chest tube is noted in the left chest on today's chest x-ray. There is some subcutaneous emphysema. There is a small pneumothorax noted. Objective - Vital Signs Vital signs: Vital Signs Temp 97.5 F L 05/06/22 08:00 Pulse 73 05/06/22 15:14 Resp 18 05/06/22 03:15 BP 113/55 05/06/22 08:00 Pulse Ox 97 05/06/22 09:20 FiO2 21 05/02/22 01:57 Intake & Output 05/05/22 05/06/22 05/06/22 18:59 06:59 18:59 Intake Total 180 120 Output Total 600 1200 Balance -420 -1200 120 Weight 59.1 kg Intake: Oral 180 120 Output: Drainage 0 Left Chest 0 Urine 600 1200 Uretheral (Tinsley) 800 Stool 0 Other: Voiding Method Urinal Indwelling Catheter Indwelling Catheter - Exam No acute distress, oriented 3. Currently on room air. Saturations are 91 %. HEENT examination is grossly unremarkable. Neck supple. Full range of motion. No adenopathy thyromegaly or neck vein distention. Cardiovascular examination reveals regular rhythm rate. S1-S2 normal. No S3 or S4. No discernible murmur noted. Heart rate 76 bpm. Lungs reveal mild to moderate scattered rhonchi. No wheezes. No crackles. Subcutaneous emphysema is appreciated. Abdomen soft bowel sounds are heard. No masses or tenderness. Extremities are intact. No cyanosis clubbing or edema. Skin is without rash or lesion. Neurologic examination is brief but nonfocal. - Labs CBC & Chem 7: 05/06/22 11:52 05/06/22 11:52 Labs: Abnormal Lab Results - Last 24 Hours (Table) 05/06/22 05/06/22 Range/Units 11:52 11:52 RBC 3.12 L (4.30-5.90) m/uL Hgb 10.1 L (13.0-17.5) gm/dL Hct 30.4 L (39.0-53.0) % Sodium 130 L (137-145) mmol/L Potassium 5.4 H (3.5-5.1) mmol/L BUN 32 H (9-20) mg/dL Assessment and Plan Assessment: 1.3 x 2.2 x 1.5 cm left upper lobe necrotic cavitating mass, status post left upper lobe wedge resection for suspected non-small cell carcinoma, postop day #8. 1.6 cm soft tissue density, posterior back, under the left trapezius muscle. COPD, with an FEV1 of 35% of predicted. Chronic tobacco dependence of greater than 50 years. History of hypertension. History of hyperlipidemia. Cervical neck pain, with subsequent surgery, February 2022. Plan: Plan dated 05/02/2022. Currently, pathologic specimens are pending. The patient is thought to have non-small cell lung cancer. The patient continues with a left chest tube in place. There may be a small apical pneumothorax on the left. There is considerable subcutaneous emphysema in the left neck and chest area. His, and medications are reviewed. Prognosis is certainly guarded. We will await the results of the pathology evaluation. Plan dated 05/05/2022. The patient is postop day #7. Chest tube still in place. There is a small left apical pneumothorax. There is persistent subcutaneous emphysema. Left upper lobe wedge resection is positive for moderately invasive squamous cell carcinoma, with visceral pleural invasion. The patient has been followed on a daily basis, by our group, and cardiothoracic surgery. Clinically, he looks very stable. He is on room air. He has no specific complaints. Additional recommendations and suggestions are forthcoming. Labs, x-rays, and medications are all reviewed. Plan dated 05/06/2022. The patient remains about the same. He is on room air. Saturations are in the low 90s. Left chest tube remains in place. He still has a leak. X-ray is reviewed. Labs, medications are reviewed. The patient is clinically stable. He is being followed by cardiothoracic surgery. They will make the final decision about when to remove the chest tube. Today is postop day #8. Time with Patient: Less than 30
[2022-05-06] MEDS: KETOROLAC 15 MG/ML 1 ML VIAL IVP PRN (16:32)
[2022-05-06 16:33] LABS: Appearance,Urine Clear (Clear); Bacteria,Urine Rare /hpf; Bilirubin,Urine Negative (Negative); Blood,Urine Trace (Negative); Color,Urine Yellow; Glucose,Urine (UA) Negative (Negative); Ketones,Urine Negative (Negative); Leukocyte Esterase,Urine Moderate (Negative); Mucus,Urine Rare /hpf; Nitrite,Urine Negative (Negative); PH, Urine 5.5 (5.0-8.0); Protein,Urine Negative (Negative); RBC,Urine 7 /hpf (0-5); Specific Gravity,Urine 1.013 (1.001-1.035); Urobilinogen,Urine <2.0 mg/dL (<2.0); WBC,Urine 9 /hpf (0-5)
[2022-05-06] MEDS: ATORVASTATIN 10 MG TAB PO SCH (21:43)
[2022-05-07] MEDS: IPRATROPIUM-ALBUTEROL 3 ML NEB IH PRN (00:03)
[2022-05-07] MEDS: traMADol 50 MG TAB PO PRN ×2 (01:36→23:45)
[2022-05-07] MEDS: PANTOPRAZOLE 40 MG TABLET PO SCH ×2 (06:50→10:45)
--- NOTE | 2022-05-07 08:38 | P.PN ---
Subjective Progress Note Date: 05/07/22 Principal diagnosis: Non-small cell lung cancer of the left upper lobe. Previuos medical history of hypertension, hyperlipidemia, chronic tobacco dependence of 50 years, severe ch ronic obstructive pulmonary disease, gout and osteoarthritis. POD #9 bronchoscopy, video-assisted left thoracoscopic surgery, wedge resection of left upper lobe nodule, mediastinal lymph node dissection and intercostal nerve block with 0.5% Marcaine with epinephrine at 3 levels. Prolonged air leak >5 days Urine retention requiring replacement of jones catheter The patient was seen and examined sitting up in a recliner on the cardiac stepdown unit in no acute distress. He denies any post surgical pain or shortness of breath. Left pleural chest tube remains in place to waterseal with air leak present with coughing. Currently on 2LPM NC with oxygen saturation in the mid 90s and able to achieve 1000 mL on his incentive spirometer. He has been ambulatory without difficulty. Chest x-ray reviewed this morning. Plan was to send patient home with Pneumostat device until air leak resolution, however there are no devices currently available in this hospital-back ordered by brusher hand. Patient is a bit frustrated with being in the hospital so long. No other new concerns. Objective - Vital Signs Vital signs: Vital Signs Temp 98.2 F 05/07/22 04:00 Pulse 84 05/07/22 04:00 Resp 18 05/07/22 04:00 BP 109/55 05/07/22 04:00 Pulse Ox 95 05/07/22 04:00 FiO2 21 05/02/22 01:57 Intake & Output 05/06/22 05/07/22 05/07/22 18:59 06:59 18:59 Intake Total 885 Output Total 775 625 Balance 110 -625 Weight 56.5 kg Intake: Oral 885 Output: Drainage 0 Left Chest 0 Urine 775 625 Stool 0 Other: Voiding Method Indwelling Catheter Indwelling Catheter - Exam CONSTITUTIONAL: Appears comfortable, cooperative, no acute distress RESPIRATORY: Lungs sounds diminished bilaterally, left greater than right. Respirations even, nonlabored. Currently on 2 LPM NC with oxygen saturation 95%. Able to achieve 1000 mL on incentive spirometry. Strong cough. CARDIOVASCULAR: S1, S2 present. Regular rate and rhythm, sinus rhythm on telemetry. Palpable peripheral pulses bilaterally. No edema present. No calf pain or tenderness noted. SCDs present. GASTROINTESTINAL: Abdomen soft, nontender, nondistended. Active bowel sounds present 4 quadrants. Tolerating diet. Positive bowel movement 05/05 GENITOURINARY: Jones catheter present, draining clear, yellow urine INTEGUMENTARY: Skin is warm and dry with evidence of good perfusion. Thoracic incision well approximated and covered with dry intact dressing. NEUROLOGIC: Cranial nerves II through XII intact MUSKULOSKELETAL: Able to move all extremities, strength equal bilaterally, gait normal PSYCHIATRIC: Alert and oriented to person place and time, appropriate affect, intact judgment and insight INVASIVE LINES AND TUBES: Left pleural chest tube present to waterseal, air leaks present with coughing, no drainage in the last 24 hours - Allied health notes Allied health notes reviewed: nursing - Labs CBC & Chem 7: 05/06/22 11:52 05/06/22 11:52 Labs: Abnormal Lab Results - Last 24 Hours (Table) 05/06/22 05/06/22 05/06/22 Range/Units 11:52 11:52 16:08 RBC 3.12 L (4.30-5.90) m/uL Hgb 10.1 L (13.0-17.5) gm/dL Hct 30.4 L (39.0-53.0) % Sodium 130 L (137-145) mmol/L Potassium 5.4 H (3.5-5.1) mmol/L BUN 32 H (9-20) mg/dL Urine Blood Trace H (Negative) Ur Leukocyte Esterase Moderate H (Negative) Urine RBC 7 H (0-5) /hpf Urine WBC 9 H (0-5) /hpf Urine Bacteria Rare H (None) /hpf Urine Mucus Rare H (None) /hpf - Imaging and Cardiology Chest x-ray: image reviewed Assessment and Plan Assessment: 1. 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 History of hypertension 3. History of hyperlipidemia 4. Chronic tobacco dependence of 50 years 5. Severe chronic obstructive pulmonary disease with preoperative FEV1 47% of predicted 6. Gout 7. Osteoarthritis 8. Urinary retention, secondary to underlying BPH, jones reinserted 9. Prolonged air leak Plan: 1. Continue left pleural chest tube to waterseal. Continue to monitor for airleak resolution. Will try to obtain Pneumostat device from another institution 2. Wean oxygen as tolerated. Encourage use of incentive spirometry 10 times every hour while awake. 3. Out of bed for all meals, increase activity as tolerated. 4. Continue Flomax 0.4 mg by mouth daily for urinary retention. UA sent: mod leuk sean, 9 WBC, rare bacteria, no nitrites. Will have patient follow up with urology outpatient 5. Pain control per current medication regimen 6. Pathology results reviewed with the patient by Dr. Boothe 7. Continue to follow labs and daily chest x-ray. 8. Bronchodilators per pulmonary. 9. More recommendations to follow based on patient's clinical course.
[2022-05-07] MEDS: IPRATROPIUM-ALBUTEROL 3 ML NEB INHALATION SCH ×4 (09:14→20:28)
[2022-05-07] MEDS: FLUTICASONE 110 MCG INHALER INHALATION SCH ×2 (09:14→20:28)
--- NOTE | 2022-05-07 09:51 | XR ---
EXAMINATION TYPE: XR chest 2V DATE OF EXAM: 05/07/2022 COMPARISON: 05/06/2022 INDICATION: Pneumothorax, status post wedge resection. TECHNIQUE: Frontal and lateral views of the chest are obtained. FINDINGS: The heart size is normal. The pulmonary vasculature is normal. There is persistent left pneumothorax. Finding appears stable in size. Left-sided chest tube remains unchanged in position. Subcutaneous emphysema remains present on the left. No suspicious lung infiltr ate identified.. IMPRESSION: 1. Persistent stable left pneumothorax.
[2022-05-07] MEDS: KETOROLAC 15 MG/ML 1 ML VIAL IVP PRN (10:44)
[2022-05-07] MEDS: TAMSULOSIN 0.4 MG CAP.ER.24H PO SCH (10:45)
[2022-05-07] MEDS: lisinopriL 10 MG TAB PO SCH (10:46)
[2022-05-07] MEDS: FERROUS SULFATE 325 MG TAB PO SCH (10:46)
[2022-05-07] MEDS: amLODIPine 10 MG TAB PO SCH (10:46)
[2022-05-07] MEDS: allopurinoL 100 MG TAB PO SCH ×2 (10:46→21:51)
[2022-05-07] MEDS: SENNOSIDES-DOCUSATE SODIUM 1 EACH TAB PO SCH ×2 (10:46→21:51)
[2022-05-07] MEDS: VIT A,C & E-LUTEIN-MINERALS 1 EACH TAB PO SCH (10:47)
[2022-05-07] MEDS: HEPARIN SODIUM,PORCINE/PF 5,000 UNIT/0.5 ML SYRINGE SQ SCH ×3 (10:47→23:47)
[2022-05-07] MEDS: NICOTINE 14MG/24HR PATCH TRANSDERM SCH (10:47)
--- NOTE | 2022-05-07 13:45 | P.PN ---
Subjective Progress Note Date: 05/07/22 Principal diagnosis: Pulmonary nodule. Status post was resection of left upper lobe nodule, mediastinal node dissection and intercostal nerve block postoperative day #3 This is a very pleasant 66-year-old male patient who has a history of cervical neck pain and subsequent surgery in February 2022, hyperlipidemia, hypertension, chronic tobacco dependence of 50 years, chronic obstructive pulmonary disease with an FEV1 value of 45% of predicted. He is also found to have a left upper lobe cavitary nodule measuring 17 by 11 mm. a PET scan dated 02/02/2022 revealed necrotic neoplastic mass in the left upper lobe with an SUV level is 6.3 as well as a neoplastic nodule in the soft tissue of the left trapezius muscle medial to the left scaphoid with an SUV level of 6.3. He was seen and evaluated by CT services who brought the patient in today electively for a video-assisted left thorascopic wedge resection of the upper lobe nodule. Mediastinal lymph node dissection. Postop diagnosis of his non-small cell lung cancer. He is seen today in consultation on the selective care unit. Currently resting fairly comfortably in bed. Awake and alert. He is maintaining good O2 saturations in the upper 90s on 2 L/m per nasal cannula. Left-sided chest tube in place her chest x-ray reviewed. No significant pneumothorax. Blood glucose 157. He has been initiated on DuoNeb inhalations. Heparin for DVT prophylaxis. D5 and half-normal saline at 50 MLS per hour. Antibiotics in the form of cefazolin. Educated regarding the use of the incentive spirometer. The patient is seen today 04/29/2022 and a follow-up on the selective care unit. He is currently sitting up in a chair at the bedside. Awake and alert in no acute distress. He is maintaining O2 saturations in the 90s on room air. He's afebrile. Hemodynamically stable. He is working well with the incentive s pirometer. Left-sided chest tube remains in place to Pleur-evac and wall suction. Positive leak. Positive pneumothorax on today's chest x-ray. White count 15.3. Hemoglobin 10.2. Sodium 133. Potassium 4.9. BUN 24. Creatinine 0.82. Glucose 111. He remains on DuoNeb inhalations. Heparin for DVT prophylaxis. Pain is currently well controlled. Reevaluated today on 05/01/22, patient is doing great, asymptomatic, continues to have chest tube in place, however is off suction. Chest x-ray showed minimal subcutaneous emphysema, intermittent air leak noted in the chest tube. Progress note dated 05/02/2022. The patient is again seen today in room 376. The patient has significant subcut aneous emphysema on his chest x-ray. The left-sided chest tube is still present. There is a clear-cut leak noted. The patient's currently on room air. He denies being short of breath. White count 8.7, hemoglobin 10.7, hematocrit 31.1, and platelet count 276,000. Sodium 135, potassium 4.4, chlorides 103, CO2 23, anion gap 9, BUN 21, creatinine 0.65. Calcium is 9. Magnesium is 1.7. Chest x-ray from May 02, show significant subcutaneous emphysema. There is also an apically placed left-sided chest tube, and possibly a small left apical pneumothorax. Progress note dated 05/05/2022. The patient is again seen today in room 376. He's currently on room air. He's not receiving any IV fluids. He looks very comfortable. Unfortunately, the patient still has a significant air leak, from that left-sided chest tube. For that reason, the chest tube is still in place. Chest x-ray is reviewed. Laboratory data includes a white count of 10.1, hemoglobin 11.1, hematocrit 39, and a platelet count of 382,000. Sodium 133, potassium 5.3, chlorides 100, CO2 21, anion gap 12, BUN 27, and creatinine 0.85. Today's chest x-ray shows ongoing subcutaneous emphysema, and a small left apical pneumothorax. Progress note dated 05/06/2022. The patient is seen in room 376. He remains on room air. He is not receiving IV fluids. The patient still has a leak from his left chest tube. The left chest tube is off of suction. The patient does not appear to have any distress. White count 8.2, hemoglobin 10.1 hematocrit 30.4, and platelet count 339,000. Sodium 130, potassium 5.4, chlorides 99, CO2 22, BUN 32, creatinine 0.98. Chest tube is noted in the left chest on today's chest x-ray. There is some subcutaneous emphysema. There is a small pneumothorax noted. Progress note dated 05/07/2022. The patient is again seen in room 376. The patient's currently on room air. Left chest tube is still in place. The patient's chest tube still demonstrates a leak. The patient is not receiving any IV fluids. He looks a bit dejected. He is now been here in the hospital for 9 days. The patient denies any shortness of breath, or chest discomfort. Chest x-ray does show a small left apical pneumothorax. Objective - Vital Signs Vital signs: Vital Signs Temp 97.9 F 05/07/22 11:55 Pulse 76 05/07/22 12:30 Resp 20 05/07/22 11:55 BP 101/45 05/07/22 11:55 Pulse Ox 95 05/07/22 11:55 FiO2 21 05/02/22 01:57 Intake & Output 05/06/22 05/07/22 05/07/22 18:59 06:59 18:59 Intake Total 885 240 Output Total 775 625 Balance 110 -625 240 Weight 56.5 kg Intake: Oral 885 240 Output: Drainage 0 Left Chest 0 Urine 775 625 Stool 0 Other: Voiding Method Indwelling Catheter Indwelling Catheter Indwelling Catheter - Exam No acute distress, oriented 3. Currently on room air. Saturations are 95 %. HEENT examination is grossly unremarkable. Neck supple. Full range of motion. No adenopathy thyromegaly or neck vein distention. Cardiovascular examination reveals regular rhythm rate. S1-S2 normal. No S3 or S4. No discernible murmur noted. Heart rate 79 bpm. Lungs reveal mild to moderate scattered rhonchi. No wheezes. No crackles. Subcutaneous emphysema is appreciated. Abdomen soft bowel sounds are heard. No masses or tenderness. Extremities are intact. No cyanosis clubbing or edema. Skin is without rash or lesion. Neurologic examination is brief but nonfocal. - Labs CBC & Chem 7: 05/06/22 11:52 05/06/22 11:52 Labs: Abnormal Lab Results - Last 24 Hours (Table) 05/06/22 Range/Units 16:08 Urine Blood Trace H (Negative) Ur Leukocyte Esterase Moderate H (Negative) Urine RBC 7 H (0-5) /hpf Urine WBC 9 H (0-5) /hpf Urine Bacteria Rare H (None) /hpf Urine Mucus Rare H (None) /hpf Assessment and Plan Assessment: 1.3 x 2.2 x 1.5 cm left upper lobe necrotic cavitating mass, status post left upper lobe wedge resection for suspected non-small cell carcinoma, postop day #9 . 1.6 cm soft tissue density, posterior back, under the left trapezius muscle. COPD, with an FEV1 of 35% of predicted. Chronic tobacco dependence of greater than 50 years. History of hypertension. History of hyperlipidemia. Cervical neck pain, with subsequent surgery, February 2022. Plan: Plan dated 05/02/2022. Currently, pathologic specimens are pending. The patient is thought to have non-small cell lung cancer. The patient continues with a left chest tube in place. There may be a small apical pneumothorax on the left. There is considerable subcutaneous emphysema in the left neck and chest area. His, and medications are reviewed. Prognosis is certainly guarded. We will await the results of the pathology evaluation. Plan dated 05/05/2022. The patient is postop day #7. Chest tube still in place. There is a small left apical pneumothorax. There is persistent subcutaneous emphysema. Left upper lobe wedge resection is positive for moderately invasive squamous cell carcinoma, with visceral pleural invasion. The patient has been followed on a daily basis, by our group, and cardiothoracic surgery. Clinically, he looks very stable. He is on room air. He has no specific complaints. Additional recommendations and suggestions are forthcoming. Labs, x-rays, and medications are all reviewed. Plan dated 05/06/2022. The patient remains about the same. He is on room air. Saturations are in the low 90s. Left chest tube remains in place. He still has a leak. X-ray is reviewed. Labs, medications are reviewed. The patient is clinically stable. He is being followed by cardiothoracic surgery. They will make the final d ecision about when to remove the chest tube. Today is postop day #8. Plan dated 05/07/2022. The patient is doing well clinically. He denies any shortness of breath, or chest pain. Unfortunately, the chest x-ray demonstrates a small left apical pneumothorax and, there is still air leak from the recent chest procedure. Labs, x-rays, and medications are reviewed. Today is postop day #9. We will continue to follow the patient make recommendations along the way. Time with Patient: Less than 30
[2022-05-07] MEDS: ACETAMINOPHEN TAB 325 MG TAB PO PRN (16:42)
[2022-05-07] MEDS: ATORVASTATIN 10 MG TAB PO SCH (21:51)
[2022-05-08] MEDS: IPRATROPIUM-ALBUTEROL 3 ML NEB IH PRN (03:43)
[2022-05-08] MEDS: FLUTICASONE 110 MCG INHALER INHALATION SCH ×2 (08:04→19:35)
[2022-05-08] MEDS: IPRATROPIUM-ALBUTEROL 3 ML NEB INHALATION SCH ×4 (08:04→19:35)
--- NOTE | 2022-05-08 08:26 | XR ---
EXAMINATION TYPE: XR chest 2V DATE OF EXAM: 05/08/2022 COMPARISON: 05/07/2022 INDICATION: Pneumothorax TECHNIQUE: Single frontal view of the chest is obtained. FINDINGS: The heart size is normal. The pulmonary vasculature is normal. There is old left apical pneumothorax which appears essentially stable from comparison. Left-sided chest tube remains present. Mild left upper lobe infiltrate is present may be related to atelectasis. Subcutaneous emphysema rem ains present on the left. IMPRESSION: 1. Stable appearing left apical pneumothorax. Left-sided chest tube remains in position.
[2022-05-08] MEDS: SENNOSIDES-DOCUSATE SODIUM 1 EACH TAB PO SCH ×2 (08:43→19:49)
[2022-05-08] MEDS: NICOTINE 14MG/24HR PATCH TRANSDERM SCH (08:43)
[2022-05-08] MEDS: HEPARIN SODIUM,PORCINE/PF 5,000 UNIT/0.5 ML SYRINGE SQ SCH ×3 (08:44→23:32)
[2022-05-08] MEDS: TAMSULOSIN 0.4 MG CAP.ER.24H PO SCH (08:44)
[2022-05-08] MEDS: allopurinoL 100 MG TAB PO SCH ×2 (08:44→19:49)
[2022-05-08] MEDS: VIT A,C & E-LUTEIN-MINERALS 1 EACH TAB PO SCH (08:44)
[2022-05-08] MEDS: FERROUS SULFATE 325 MG TAB PO SCH (08:44)
[2022-05-08] MEDS: KETOROLAC 15 MG/ML 1 ML VIAL IVP PRN (08:44)
[2022-05-08] MEDS: PANTOPRAZOLE 40 MG TABLET PO SCH (08:46)
--- NOTE | 2022-05-08 09:41 | P.PN ---
Subjective Progress Note Date: 05/08/22 Principal diagnosis: Non-small cell lung cancer of the left upper lobe. Previuos medical history of hypertension, hyperlipidemia, chronic tobacco dependence of 50 years, severe ch ronic obstructive pulmonary disease, gout and osteoarthritis. POD #10 bronchoscopy, video-assisted left thoracoscopic surgery, wedge resection of left upper lobe nodule, mediastinal lymph node dissection and intercostal nerve block with 0.5% Marcaine with epinephrine at 3 levels. Prolonged air leak >5 days, pneumothorax Urine retention requiring replacement of jones catheter The patient was seen and examined sitting up in a recliner on the cardiac stepdown unit in no acute distress. He denies any post surgical pain or shortness of breath. Left pleural chest tube remains in place to waterseal with air leak present with coughing. Currently on room air with oxygen saturation in the mid 90s and able to achieve 1250 mL on his incentive spirometer. He has been ambulatory without difficulty. Chest x-ray reviewed this morning, unchanged. Plan was to send patient home with Pneumostat device until air leak resolution, however there are no devices currently available in this hospital-ba ck ordered by [employer] operator. Patient is a bit frustrated with being in the hospital so long but does understand, was able to eat non-hospital food yesterday which was better for him. No other new concerns. Objective - Vital Signs Vital signs: Vital Signs Temp 98.2 F 05/08/22 07:33 Pulse 72 05/08/22 08:17 Resp 18 05/08/22 07:33 BP 92/48 05/08/22 07:33 Pulse Ox 92 L 05/08/22 07:33 FiO2 21 05/07/22 20:29 Intake & Output 05/07/22 05/08/22 05/08/22 18:59 06:59 18:59 Intake Total 480 0 Output Total 330 1530 Balance 150 -1530 0 Intake: Oral 480 0 Output: Drainage 0 0 Left Chest 0 0 Urine 330 1530 Stool 0 Other: Voiding Method Indwelling Catheter Indwelling Catheter # Bowel Movements 1 - Exam CONSTITUTIONAL: Appears comfortable, cooperative, no acute distress RESPIRATORY: Lungs sounds diminished bilaterally, left greater than right. Respirations even, nonlabored. Currently on room air with oxygen saturation 93%. Able to achieve 1250 mL on incentive spirometry. Strong cough. CARDIOVASCULAR: S1, S2 present. Regular rate and rhythm, sinus rhythm on telemetry. Palpable peripheral pulses bilaterally. No edema present. No calf pain or tenderness noted. SCDs present. GASTROINTESTINAL: Abdomen soft, nontender, nondistended. Active bowel sounds present 4 quadrants. Tolerating diet. Positive bowel movement 05/08 GENITOURINARY: Jones catheter present, draining clear, yellow urine INTEGUMENTARY: Skin is warm and dry with evidence of good perfusion. Thoracic incision well approximated and covered with dry intact dressing. NEUROLOGIC: Cranial nerves II through XII intact MUSKULOSKELETAL: Able to move all extremities, strength equal bilaterally, gait normal PSYCHIATRIC: Alert and oriented to person place and time, appropriate affect, intact judgment and insight INVASIVE LINES AND TUBES: Left pleural chest tube present to waterseal, air leaks present with coughing, no drainage in the last 24 hours - Allied health notes Allied health notes reviewed: nursing - Labs CBC & Chem 7: 05/06/22 11:52 05/06/22 11:52 - Imaging and Cardiology Chest x-ray: report reviewed, image reviewed Assessment and Plan Assessment: 1. 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 History of hypertension 3. History of hyperlipidemia 4. Chronic tobacco dependence of 50 years 5. Severe chronic obstructive pulmonary disease with preoperative FEV1 47% of predicted 6. Gout 7. Osteoarthritis 8. Urinary retention, secondary to underlying BPH, jones reinserted 9. Prolonged air leak, pneumothorax Plan: 1. Continue left pleural chest tube to waterseal. Continue to monitor for airleak resolution. Will try to obtain Pneumostat device from another institution 2. Encourage use of incentive spirometry 10 times every hour while awake. 3. Out of bed for all meals, increase activity as tolerated. 4. Continue Flomax 0.4 mg by mouth daily for urinary retention. UA sent: mod leuk sean, 9 WBC, rare bacteria, no nitrites. Will have patient follow up with urology outpatient 5. Pain control per current medication regimen 6. Pathology results reviewed with the patient by Dr. Boothe 7. Continue to follow labs and daily chest x-ray. 8. Bronchodilators per pulmonary. 9. More recommendations to follow based on patient's clinical course.
--- NOTE | 2022-05-08 09:47 | P.PN ---
Subjective Progress Note Date: 05/08/22 Principal diagnosis: Pulmonary nodule. Status post was resection of left upper lobe nodule, mediastinal node dissection and intercostal nerve block postoperative day #3 This is a very pleasant 66-year-old male patient who has a history of cervical neck pain and subsequent surgery in February 2022, hyperlipidemia, hypertension, chronic tobacco dependence of 50 years, chronic obstructive pulmonary disease with an FEV1 value of 45% of predicted. He is also found to have a left upper lobe cavitary nodule measuring 17 by 11 mm. a PET scan dated 02/02/2022 revealed necrotic neoplastic mass in the left upper lobe with an SUV level is 6.3 as well as a neoplastic nodule in the soft tissue of the left trapezius muscle medial to the left scaphoid with an SUV level of 6.3. He was seen and evaluated by CT services who brought the patient in today electively for a video-assisted left thorascopic wedge resection of the upper lobe nodule. Mediastinal lymph node dissection. Postop diagnosis of his non-small cell lung cancer. He is seen today in consultation on the selective care unit. Currently resting fairly comfortably in bed. Awake and alert. He is maintaining good O2 saturations in the upper 90s on 2 L/m per nasal cannula. Left-sided chest tube in place her chest x-ray reviewed. No significant pneumothorax. Blood glucose 157. He has been initiated on DuoNeb inhalations. Heparin for DVT prophylaxis. D5 and half-normal saline at 50 MLS per hour. Antibiotics in the form of cefazolin. Educated regarding the use of the incentive spirometer. The patient is seen today 04/29/2022 and a follow-up on the selective care unit. He is currently sitting up in a chair at the bedside. Awake and alert in no acute distress. He is maintaining O2 saturations in the 90s on room air. He's afebrile. Hemodynamically stable. He is working well with the incentive s pirometer. Left-sided chest tube remains in place to Pleur-evac and wall suction. Positive leak. Positive pneumothorax on today's chest x-ray. White count 15.3. Hemoglobin 10.2. Sodium 133. Potassium 4.9. BUN 24. Creatinine 0.82. Glucose 111. He remains on DuoNeb inhalations. Heparin for DVT prophylaxis. Pain is currently well controlled. Reevaluated today on 05/01/22, patient is doing great, asymptomatic, continues to have chest tube in place, however is off suction. Chest x-ray showed minimal subcutaneous emphysema, intermittent air leak noted in the chest tube. Progress note dated 05/02/2022. The patient is again seen today in room 376. The patient has significant subcut aneous emphysema on his chest x-ray. The left-sided chest tube is still present. There is a clear-cut leak noted. The patient's currently on room air. He denies being short of breath. White count 8.7, hemoglobin 10.7, hematocrit 31.1, and platelet count 276,000. Sodium 135, potassium 4.4, chlorides 103, CO2 23, anion gap 9, BUN 21, creatinine 0.65. Calcium is 9. Magnesium is 1.7. Chest x-ray from May 02, show significant subcutaneous emphysema. There is also an apically placed left-sided chest tube, and possibly a small left apical pneumothorax. Progress note dated 05/05/2022. The patient is again seen today in room 376. He's currently on room air. He's not receiving any IV fluids. He looks very comfortable. Unfortunately, the patient still has a significant air leak, from that left-sided chest tube. For that reason, the chest tube is still in place. Chest x-ray is reviewed. Laboratory data includes a white count of 10.1, hemoglobin 11.1, hematocrit 39, and a platelet count of 382,000. Sodium 133, potassium 5.3, chlorides 100, CO2 21, anion gap 12, BUN 27, and creatinine 0.85. Today's chest x-ray shows ongoing subcutaneous emphysema, and a small left apical pneumothorax. Progress note dated 05/06/2022. The patient is seen in room 376. He remains on room air. He is not receiving IV fluids. The patient still has a leak from his left chest tube. The left chest tube is off of suction. The patient does not appear to have any distress. White count 8.2, hemoglobin 10.1 hematocrit 30.4, and platelet count 339,000. Sodium 130, potassium 5.4, chlorides 99, CO2 22, BUN 32, creatinine 0.98. Chest tube is noted in the left chest on today's chest x-ray. There is some subcutaneous emphysema. There is a small pneumothorax noted. Progress note dated 05/07/2022. The patient is again seen in room 376. The patient's currently on room air. Left chest tube is still in place. The patient's chest tube still demonstrates a leak. The patient is not receiving any IV fluids. He looks a bit dejected. He is now been here in the hospital for 9 days. The patient denies any shortness of breath, or chest discomfort. Chest x-ray does show a small left apical pneumothorax. Progress note dated 05/08/2022. The patient is again seen in room 376. He is resting comfortably. He is on room air. He has a left chest tube in place. There is still a leak present. The chest x-ray does show a left-sided pneumothorax. The patient is not receiving any IV fluids. No new laboratory data today. Chest x-ray is reviewed. Because of the persistent left-sided pneumothorax, and the leak, the patient may end up needing surgery. Objective - Vital Signs Vital signs: Vital Signs Temp 98.2 F 05/08/22 07:33 Pulse 72 05/08/22 08:17 Resp 18 05/08/22 07:33 BP 92/48 05/08/22 07:33 Pulse Ox 92 L 05/08/22 07:33 FiO2 21 05/07/22 20:29 Intake & Output 05/07/22 05/08/22 05/08/22 18:59 06:59 18:59 Intake Total 480 0 Output Total 330 1530 Balance 150 -1530 0 Intake: Oral 480 0 Output: Drainage 0 0 Left Chest 0 0 Urine 330 1530 Stool 0 Other: Voiding Method Indwelling Catheter Indwelling Catheter # Bowel Movements 1 - Exam No acute distress, oriented 3. Currently on room air. Saturations are 92 %. HEENT examination is grossly unremarkable. Neck supple. Full range of motion. No adenopathy thyromegaly or neck vein distention. Cardiovascular examination reveals regular rhythm rate. S1-S2 normal. No S3 or S4. No discernible murmur noted. Heart rate 72 bpm. Lungs reveal mild to moderate scattered rhonchi. No wheezes. No crackles. Left chest tube is noted. Subcutaneous emphysema is present but much improved. Abdomen soft bowel sounds are heard. No masses or tenderness. Extremities are intact. No cyanosis clubbing or edema. Skin is without rash or lesion. Neurologic examination is brief but nonfocal. - Labs CBC & Chem 7: 05/06/22 11:52 05/06/22 11:52 Assessment and Plan Assessment: 1.3 x 2.2 x 1.5 cm left upper lobe necrotic cavitating mass, status post left upper lobe wedge resection for suspected non-small cell carcinoma, postop day #10. Unfortunately, the patient has a persistent air leak, and left chest tube is present, with a persistent left-sided pneumothorax. 1.6 cm soft tissue density, posterior back, under the left trapezius muscle. COPD, with an FEV1 of 35% of predicted. Chronic tobacco dependence of greater than 50 years. History of hypertension. History of hyperlipidemia. Cervical neck pain, with subsequent surgery, February 2022. Plan: Plan dated 05/02/2022. Currently, pathologic specimens are pending. The patient is thought to have non-small cell lung cancer. The patient continues with a left chest tube in place. There may be a small apical pneumothorax on the left. There is considerable subcutaneous emphysema in the left neck and chest area. His, and medications are reviewed. Prognosis is certainly guarded. We will await the results of the pathology evaluation. Plan dated 05/05/2022. The patient is postop day #7. Chest tube still in place. There is a small left apical pneumothorax. There is persistent subcutaneous emphysema. Left upper lobe wedge resection is positive for moderately invasive squamous cell carcinoma, with visceral pleural invasion. The patient has been followed on a daily basis, by our group, and cardiothoracic surgery. Clinically, he looks very stable. He is on room air. He has no specific complaints. Additional recommendations and suggestions are forthcoming. Labs, x-rays, and medications are all reviewed. Plan dated 05/06/2022. The patient remains about the same. He is on room air. Saturations are in the low 90s. Left chest tube remains in place. He still has a leak. X-ray is reviewed. Labs, medications are reviewed. The patient is clinically stable. He is being followed by cardiothoracic surgery. They will make the final decision about when to remove the chest tube. Today is postop day #8. Plan dated 05/07/2022. The patient is doing well clinically. He denies any shortness of breath, or chest pain. Unfortunately, the chest x-ray demonstrates a small left apical pneumothorax and, there is still air leak from the recent chest procedure. Labs , x-rays, and medications are reviewed. Today is postop day #9. We will continue to follow the patient make recommendations along the way. Plan dated 05/08/2022. Clinically, the patient is stable. He's on room air. Is not receiving any IV fluids. The patient does have a persistent air leak. The chest x-ray from today shows a persistent left-sided pneumothorax which is actually a bit larger. We will continue to follow make recommendations along the way. The patient may require surgery. Labs, x-rays, and medications are all reviewed. Time with Patient: Less than 30
[2022-05-08] MEDS: lisinopriL 10 MG TAB PO SCH (11:32)
[2022-05-08] MEDS: ACETAMINOPHEN TAB 325 MG TAB PO PRN (15:49)
[2022-05-08] MEDS: amLODIPine 10 MG TAB PO SCH (16:04)
[2022-05-08] MEDS: ATORVASTATIN 10 MG TAB PO SCH (19:49)
[2022-05-08] MEDS: traMADol 50 MG TAB PO PRN (23:32)
[2022-05-09] MEDS: IPRATROPIUM-ALBUTEROL 3 ML NEB IH PRN (03:11)
[2022-05-09] MEDS: PANTOPRAZOLE 40 MG TABLET PO SCH (06:26)
[2022-05-09] MEDS: IPRATROPIUM-ALBUTEROL 3 ML NEB INHALATION SCH ×4 (07:57→19:41)
[2022-05-09] MEDS: FLUTICASONE 110 MCG INHALER INHALATION SCH ×2 (07:57→19:41)
--- NOTE | 2022-05-09 07:58 | XR ---
EXAMINATION TYPE: XR chest 2V DATE OF EXAM: 05/09/2022 COMPARISON: 05/08/2022 TECHNIQUE: PA and lateral views submitted. HISTORY: Pneumothorax FINDINGS: Persistent left apical pneumothorax measuring approximately 25 %. Similar from prior exam. Subcutaneo us emphysema noted. Chest tube remains in position. Underlying COPD noted. Postsurgical change overly ing the cervical spine. Atherosclerotic change aorta. Heart size stable. IMPRESSION: 1. Persistent left sided pneumothorax measuring approximately 25 %
[2022-05-09 08:00] LABS: HCT 31.1 % (39.0-53.0); HGB 10.4 gm/dL (13.0-17.5); MCH 32.5 pg (25.0-35.0); MCHC 33.3 g/dL (31.0-37.0); MCV 97.5 fL (80.0-100.0); Mean Platelet Volume 7.7; Platelet Count 429 k/uL (150-450); RBC 3.19 m/uL (4.30-5.90); RDW 13.1 % (11.5-15.5); WBC 9.2 k/uL (3.8-10.6)
[2022-05-09 08:17] LABS: ALT 48 U/L (4-49); AST 20 U/L (17-59); African American GFR (CKD) >90 (>60 ml/min/1.73 sqM); Albumin 3.7 g/dL (3.5-5.0); Alkaline Phosphatase 165 U/L (38-126); Anion Gap 8 mmol/L; Blood Urea Nitrogen 22 mg/dL (9-20); Calcium 9.9 mg/dL (8.4-10.2); Carbon Dioxide 23 mmol/L (22-30); Chloride 104 mmol/L (98-107); Glucose 101 mg/dL (74-99); Magnesium 1.5 mg/dL (1.6-2.3); Non-African American GFR(CKD) >90 (>60 ml/min/1.73 sqM); Potassium 5.1 mmol/L (3.5-5.1); Sodium 135 mmol/L (137-145); Total Bilirubin 0.4 mg/dL (0.2-1.3); Total Protein 6.1 g/dL (6.3-8.2)
[2022-05-09] MEDS: allopurinoL 100 MG TAB PO SCH ×2 (08:48→19:27)
[2022-05-09] MEDS: TAMSULOSIN 0.4 MG CAP.ER.24H PO SCH (08:48)
[2022-05-09] MEDS: FERROUS SULFATE 325 MG TAB PO SCH (08:48)
[2022-05-09] MEDS: HEPARIN SODIUM,PORCINE/PF 5,000 UNIT/0.5 ML SYRINGE SQ SCH ×3 (08:48→22:37)
[2022-05-09] MEDS: lisinopriL 10 MG TAB PO SCH (08:48)
[2022-05-09] MEDS: SENNOSIDES-DOCUSATE SODIUM 1 EACH TAB PO SCH ×2 (08:48→19:27)
[2022-05-09] MEDS: NICOTINE 14MG/24HR PATCH TRANSDERM SCH (08:49)
[2022-05-09] MEDS: KETOROLAC 15 MG/ML 1 ML VIAL IVP PRN ×2 (08:51→22:38)
[2022-05-09] MEDS: VIT A,C & E-LUTEIN-MINERALS 1 EACH TAB PO SCH (08:52)
--- NOTE | 2022-05-09 10:38 | P.PN ---
Subjective Progress Note Date: 05/09/22 Principal diagnosis: Non-small cell lung cancer of the left upper lobe. Previuos medical history of hypertension, hyperlipidemia, chronic tobacco dependence of 50 years, severe ch ronic obstructive pulmonary disease, gout and osteoarthritis. POD #11 bronchoscopy, video-assisted left thoracoscopic surgery, wedge resection of left upper lobe nodule, mediastinal lymph node dissection and intercostal nerve block with 0.5% Marcaine with epinephrine at 3 levels. Prolonged air leak >5 days, pneumothorax Urine retention requiring replacement of jones catheter The patient was seen and examined laying in bed on the cardiac stepdown unit in no acute distress. He denies any post surgical pain or shortness of breath. Left pleural chest tube remains in place to waterseal with air leak present with coughing. Currently on room air with oxygen saturation in the mid 90s and able to achieve 1000 mL on his incentive spirometer. He has been ambulatory without difficulty. Chest x-ray reviewed this morning, unchanged. Plan was to send patient home with Pneumostat device until air leak resolution, however there are no devices currently available in this hospital-back ordered by welfare case worker. Patient is a bit frustrated with being in the hospital so long but does understand. No other new concerns. Objective - Vital Signs Vital signs: Vital Signs Temp 98.2 F 05/08/22 20:00 Pulse 68 05/09/22 04:00 Resp 20 05/09/22 04:00 BP 144/66 05/09/22 04:00 Pulse Ox 94 L 05/09/22 04:00 FiO2 21 05/08/22 19:35 Intake & Output 05/08/22 05/09/22 05/09/22 18:59 06:59 18:59 Intake Total 236 240 Output Total 475 1400 Balance -239 -1160 Intake: Oral 236 240 Output: Drainage 0 Left Chest 0 Urine 475 1400 Uretheral (Jones) 1200 Stool 0 Other: Voiding Method Indwelling Catheter Indwelling Catheter - Exam CONSTITUTIONAL: Appears comfortable, cooperative, no acute distress RESPIRATORY: Lungs sounds diminished bilaterally. Respirations even, nonlabored. Currently on room air with oxygen saturation 94%. Able to achieve 1000 mL on incentive spirometry. Strong cough. CARDIOVASCULAR: S1, S2 present. Regular rate and rhythm, sinus rhythm on telemetry. Palpable peripheral pulses bilaterally. No edema present. No calf pain or tenderness noted. SCDs present. GASTROINTESTINAL: Abdomen soft, nontender, nondistended. Active bowel sounds present 4 quadrants. Tolerating diet. Positive bowel movement 05/08 GENITOURINARY: Jones catheter present, draining clear, yellow urine, 1875 mL in last 24 hours INTEGUMENTARY: Skin is warm and dry with evidence of good perfusion. Thoracic incision well approximated and covered with dry intact dressing. NEUROLOGIC: Cranial nerves II through XII intact MUSKULOSKELETAL: Able to move all extremities, strength equal bilaterally, gait normal PSYCHIATRIC: Alert and oriented to person place and time, appropriate affect, intact judgment and insight INVASIVE LINES AND TUBES: Left pleural chest tube present to waterseal, air leaks present with coughing, no drainage in the last 24 hours - Allied health notes Allied health notes reviewed: nursing - Labs CBC & Chem 7: 05/09/22 07:41 05/09/22 07:41 - Imaging and Cardiology Chest x-ray: report reviewed, image reviewed Assessment and Plan Assessment: 1. Non-small cell lung cancer of the left upper lobe, final pathology consistent with [id number] stage IB moderately invasive squamous cell carcinoma with visceral pleural invasion, status post bronchoscopy, video-assisted left thoracoscopic surgery, wedge resection of left upper lobe nodule, mediastinal lymph node dissection 2. History of hypertension 3. History of hyperlipidemia 4. Chronic tobacco dependence of 50 years 5. Severe chronic obstructive pulmonary disease with preoperative FEV1 47% of predicted 6. Gout 7. Osteoarthritis 8. Urinary retention, secondary to underlying BPH, jones reinserted 9. Prolonged air leak, pneumothorax Plan: 1. Continue left pleural chest tube to waterseal. Continue to monitor for airleak resolution. Will try to obtain Pneumostat device from another institution 2. Encourage use of incentive spirometry 10 times every hour while awake. 3. Increase activity as tolerated. 4. Continue Flomax 0.4 mg by mouth daily for urinary retention. Will have patient follow up with urology outpatient 5. Pain control per current medication regimen 6. Pathology results reviewed with the patient by Dr. Boothe 7. Continue to follow labs and daily chest x-ray. Will give magnesium replacement today 8. Bronchodilators per pulmonary. 9. More recommendations to follow based on patient's clinical course.
--- NOTE | 2022-05-09 11:35 | P.PN ---
Subjective Progress Note Date: 05/09/22 Status post was resection of left upper lobe nodule, mediastinal node dissection and intercostal nerve block postoperative day #3 This is a very pleasant 66-year-old male patient who has a history of cervical neck pain and subsequent surgery in February 2022, hyperlipidemia, hypertension, chronic tobacco dependence of 50 years, chronic obstructive pulmonary disease with an FEV1 value of 45% of predicted. He is also found to have a left upper lobe cavitary nodule measuring 17 by 11 mm. a PET scan dated 02/02/2022 revealed necrotic neoplastic mass in the left upper lobe with an SUV level is 6.3 as well as a neoplastic nodule in the soft tissue of the left trapezius muscle medial to the left scaphoid with an SUV level of 6.3. He was seen and evaluated by CT services who brought the patient in today electively for a video-assisted left thorascopic wedge resection of the upper lobe nodule. Mediastinal lymph node dissection. Postop diagnosis of his non-small cell lung cancer. He is seen today in consultation on the selective care unit. Currently resting fairly comfortably in bed. Awake and alert. He is maintaining good O2 saturations in the upper 90s on 2 L/m per nasal cannula. Left-sided chest tube in place her chest x-ray reviewed. No significant pneumothorax. Blood glucose 157. He has been initiated on DuoNeb inhalations. Heparin for DVT prophylaxis. D5 and half-normal saline at 50 MLS per hour. Antibiotics in the form of cefazolin. Educated regarding the use of the incentive spirometer. The patient is seen today 04/29/2022 and a follow-up on the selective care unit. He is currently sitting up in a chair at the bedside. Awake and alert in no acute distress. He is maintaining O2 saturations in the 90s on room air. He's afebrile. Hemodynamically stable. He is working well with the incentive spirometer. Left-sided chest tube remains in place to Pleur-evac and wall suction. Positive leak. Positive pneumothorax on today's chest x-ray. White count 15.3. Hemoglobin 10.2. Sodium 133. Potassium 4.9. BUN 24. Creatinine 0.82. Glucose 111. He remains on DuoNeb inhalations. Heparin for DVT prophylaxis. Pain is currently well controlled. Reevaluated today on 05/01/22, patient is doing great, asymptomatic, continues to have chest tube in place, however is off suction. Chest x-ray showed minimal subcutaneous emphysema, intermittent air leak noted in the chest tube. Progress note dated 05/02/2022. The patient is again seen today in room 376. The patient has significant subcutaneous emphysema on his chest x-ray. The left-sided chest tube is still present. There is a clear-cut leak noted. The patient's currently on room air. He denies being short of breath. White count 8.7, hemoglobin 10.7, hematocrit 31.1, and platelet count 276,000. Sodium 135, potassium 4.4, chlorides 103, CO2 23, anion gap 9, BUN 21, creatinine 0.65. Calcium is 9. Magnesium is 1.7. Chest x-ray from May 02, show significant subcutaneous emphysema. There is also an apically placed left-sided chest tube, and possibly a small left apical pneumothorax. Progress note dated 05/05/2022. The patient is again seen today in room 376. He's currently on room air. He's not receiving any IV fluids. He looks very comfortable. Unfortunately, the patient still has a significant air leak, from that left-sided chest tube. For that reason, the chest tube is still in place. Chest x-ray is reviewed. Laboratory data includes a white count of 10.1, hemoglobin 11.1, hematocrit 39, and a platelet count of 382,000. Sodium 133, potassium 5.3, chlorides 100, CO2 21, anion gap 12, BUN 27, and creatinine 0.85. Today's chest x-ray shows ongoing subcutaneous emphysema, and a small left apical pneumothorax. Progress note dated 05/06/2022. The patient is seen in room 376. He remains on room air. He is not receiving IV fluids. The patient still has a leak from his left chest tube. The left chest tube is off of suction. The patient does not appear to have any distress. White count 8.2, hemoglobin 10.1 hematocrit 30.4, and platelet count 339,000. Sodium 130, potassium 5.4, chlorides 99, CO2 22, BUN 32, creatinine 0.98. Chest tube is noted in the left chest on today's chest x-ray. There is some subcutaneous emphysema. There is a small pneumothorax noted. Progress note dated 05/07/2022. The patient is again seen in room 376. The patient's currently on room air. Left chest tube is still in place. The patient's chest tube still demonstrates a leak. The patient is not receiving any IV fluids. He looks a bit dejected. He is now been here in the hospital for 9 days. The patient denies any shortness of breath, or chest discomfort. Chest x-ray does show a small left apical pneumothorax. Progress note dated 05/08/2022. The patient is again seen in room 376. He is resting comfortably. He is on room air. He has a left chest tube in place. There is still a leak present. The chest x-ray does show a left-sided pneumothorax. The patient is not receiving any IV fluids. No new laboratory data today. Chest x-ray is reviewe d. Because of the persistent left-sided pneumothorax, and the leak, the patient may end up needing surgery. On today's evaluation of 05/09/2022, the patient is being seen for a follow-up. The patient is postop day #11 following a video-assisted thoracoscopic wedge resection of the left upper lobe pulmonary nodule and mediastinal lymph node dissection. For now, the patient is on room air oxygen. The chest tube remains in place as the patient continues to have intermittent air leak while being on a water seal. Chest x-ray remains unchanged. There is still a persistent pneumothorax on the left in the order of 20-25% The patient is using the incentive spirometer. There is a likelihood that the patient may need to go home with a pneumostatic device depending on the presence of air leak. The patient has no complaints. Surgical one-sided dry clean and intact. The blood work from today shows a white cell count 9.2 with a hemoglobin of 10.4. Sodium is at 105 with a BUN of 22 and a creatinine of 0.8. Objective - Vital Signs Vital signs: Vital Signs Temp 98.2 F 05/09/22 08:41 Pulse 70 05/09/22 11:17 Resp 18 05/09/22 08:41 BP 115/57 05/09/22 08:41 Pulse Ox 92 L 05/09/22 08:41 FiO2 21 05/08/22 19:35 Intake & Output 05/08/22 05/09/22 05/09/22 18:59 06:59 18:59 Intake Total 236 240 Output Total 475 1400 Balance -239 -1160 Intake: Oral 236 240 Output: Drainage 0 Left Chest 0 Urine 475 1400 Uretheral (Tinsley) 1200 Stool 0 Other: Voiding Method Indwelling Catheter Indwelling Catheter - Exam No acute distress, oriented 3. Currently on room air. Saturations are 92 %. HEENT examination is grossly unremarkable. Neck supple. Full range of motion. No adenopathy thyromegaly or neck vein distention. Cardiovascular examination reveals regular rhythm rate. S1-S2 normal. No S3 or S4. No discernible murmur noted. Heart rate 72 bpm. Lungs reveal mild to moderate scattered rhonchi. No wheezes. No crackles. Left chest tube is noted. Subcutaneous emphysema is present but much improved. Abdomen soft bowel sounds are heard. No masses or tenderness. Extremities are intact. No cyanosis clubbing or edema. Skin is without rash or lesion. Neurologic examination is brief but nonfocal. - Labs CBC & Chem 7: 05/09/22 07:41 05/09/22 07:41 Labs: Abnormal Lab Results - Last 24 Hours (Table) 05/09/22 05/09/22 Range/Units 07:41 07:41 RBC 3.19 L (4.30-5.90) m/uL Hgb 10.4 L (13.0-17.5) gm/dL Hct 31.1 L (39.0-53.0) % Sodium 135 L (137-145) mmol/L BUN 22 H (9-20) mg/dL Glucose 101 H (74-99) mg/dL Magnesium 1.5 L (1.6-2.3) mg/dL Alkaline Phosphatase 165 H (38-126) U/L Total Protein 6.1 L (6.3-8.2) g/dL Assessment and Plan Plan: 1.3 x 2.2 x 1.5 cm left upper lobe necrotic cavitating mass, status post left upper lobe wedge resection for suspected non-small cell carcinoma, postop day #10. Unfortunately, the patient has a persistent air leak, and left chest tube is present, with a persistent left-sided pneumothorax. There is persistent air leak and another 20% pneumothorax on the left on today's chest x-ray 1.6 cm soft tissue density, posterior back, under the left trapezius muscle. COPD, with an FEV1 of 35% of predicted. Chronic tobacco dependence of greater than 50 years. History of hypertension. History of hyperlipidemia. Cervical neck pain, with subsequent surgery, February 2022. Plan Continue using incentive spirometer Daily chest x-rays Keep the chest tube in place We'll continue to follow.
[2022-05-09] MEDS: MAGNESIUM SULFATE-D5W PMX 1 GM in DEXTROSE/WATER 1 100ML.BAG IVPB SCH ×2 (11:38→13:41)
[2022-05-09] MEDS: ACETAMINOPHEN TAB 325 MG TAB PO PRN (16:43)
[2022-05-09] MEDS: amLODIPine 10 MG TAB PO SCH (16:44)
[2022-05-09] MEDS: ATORVASTATIN 10 MG TAB PO SCH (19:27)
[2022-05-10] MEDS: IPRATROPIUM-ALBUTEROL 3 ML NEB IH PRN (03:32)
[2022-05-10] MEDS: traMADol 50 MG TAB PO PRN (04:06)
[2022-05-10 04:20] VITALS: RESP 18
[2022-05-10] MEDS: PANTOPRAZOLE 40 MG TABLET PO SCH (06:18)
--- NOTE | 2022-05-10 08:05 | P.PN ---
Subjective Progress Note Date: 05/10/22 Principal diagnosis: Non-small cell lung cancer of the left upper lobe. Previuos medical history of hypertension, hyperlipidemia, chronic tobacco dependence of 50 years, severe ch ronic obstructive pulmonary disease, gout and osteoarthritis. POD #12 bronchoscopy, video-assisted left thoracoscopic surgery, wedge resection of left upper lobe nodule, mediastinal lymph node dissection and intercostal nerve block with 0.5% Marcaine with epinephrine at 3 levels. Prolonged air leak >5 days, pneumothorax Urine retention requiring replacement of jones catheter The patient was seen and examined laying in bed on the cardiac stepdown unit in no acute distress. He denies any post surgical pain or shortness of breath. Left pleural chest tube remains in place to waterseal with air leak present with coughing. Currently on room air with oxygen saturation in the mid 90s and able to achieve 1000 mL on his incentive spirometer. He has been ambulatory without difficulty. Chest x-ray reviewed this morning, unchanged. Pneumostat device was placed on patient this morning and plan is to send patient home today with follow-up x-ray and appointment with Dr. Boothe on Monday. Patient is insistent that he does not want to go home with jones, agreeable to another trial void and if no success will go home with leg bag to follow up with urology. No other new concerns. Objective - Vital Signs Vital signs: Vital Signs Temp 98 F 05/10/22 04:00 Pulse 84 05/10/22 04:00 Resp 18 05/10/22 04:00 BP 124/52 05/10/22 04:00 Pulse Ox 93 L 05/10/22 04:00 FiO2 21 05/08/22 19:35 Intake & Output 05/09/22 05/10/22 05/10/22 18:59 06:59 18:59 Intake Total 358 570 Output Total 500 610 Balance -142 -40 Weight 54.8 kg Intake: Oral 358 570 Output: Chest Tube Drainage 10 Left Posterior Chest 10 Urine 500 600 Other: Voiding Method Indwelling Catheter Indwelling Catheter - Exam CONSTITUTIONAL: Appears comfortable, cooperative, no acute distress RESPIRATORY: Lungs sounds diminished bilaterally. Respirations even, nonlabored. Currently on room air with oxygen saturation 93%. Able to achieve 1000 mL on incentive spirometry. Strong cough. CARDIOVASCULAR: S1, S2 present. Regular rate and rhythm, sinus rhythm on telemetry. Palpable peripheral pulses bilaterally. No edema present. No calf pain or tenderness noted. SCDs present. GASTROINTESTINAL: Abdomen soft, nontender, nondistended. Active bowel sounds present 4 quadrants. Tolerating diet. Positive bowel movement 05/08 GENITOURINARY: Jnoes catheter present, draining clear, yellow urine, 1100 mL in last 24 hours INTEGUMENTARY: Skin is warm and dry with evidence of good perfusion. Thoracic incision well approximated and covered with dry intact dressing. NEUROLOGIC: Cranial nerves II through XII intact MUSKULOSKELETAL: Able to move all extremities, strength equal bilaterally, gait normal PSYCHIATRIC: Alert and oriented to person place and time, appropriate affect, intact judgment and insight INVASIVE LINES AND TUBES: Left pleural chest tube present to waterseal, air leaks present with coughing, no drainage in the last 24 hours, Pneumostat placed this morning - Allied health notes Allied health notes reviewed: nursing - Labs CBC & Chem 7: 05/10/22 09:43 05/10/22 09:43 Labs: Abnormal Lab Results - Last 24 Hours (Table) 05/09/22 05/09/22 Range/Units 07:41 07:41 RBC 3.19 L (4.30-5.90) m/uL Hgb 10.4 L (13.0-17.5) gm/dL Hct 31.1 L (39.0-53.0) % Sodium 135 L (137-145) mmol/L BUN 22 H (9-20) mg/dL Glucose 101 H (74-99) mg/dL Magnesium 1.5 L (1.6-2.3) mg/dL Alkaline Phosphatase 165 H (38-126) U/L Total Protein 6.1 L (6.3-8.2) g/dL - Imaging and Cardiology Chest x-ray: image reviewed Assessment and Plan Assessment: 1. 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 History of hypertension 3. History of hyperlipidemia 4. Chronic tobacco dependence of 50 years 5. Severe chronic obstructive pulmonary disease with preoperative FEV1 47% of predicted 6. Gout 7. Osteoarthritis 8. Urinary retention, secondary to underlying BPH, jones reinserted 9. Prolonged air leak, pneumothorax Plan: 1. Pneumostat device placed this morning. Will provide teaching to patient/family 2. Encourage use of incentive spirometry 10 times every hour while awake. 3. Increase activity as tolerated. 4. Continue Flomax 0.4 mg by mouth daily for urinary retention. Will have patient follow up with urology outpatient. 5. Pain control per current medication regimen 6. Pathology results reviewed with the patient by Dr. Boothe 7. Bronchodilators per pulmonary. 8. Patient will be discharged today with instructions regarding Pneumostat. He will follow-up with chest x-ray and appointment with Dr. Boothe this Monday.
[2022-05-10] MEDS: FLUTICASONE 110 MCG INHALER INHALATION SCH (08:12)
[2022-05-10] MEDS: IPRATROPIUM-ALBUTEROL 3 ML NEB INHALATION SCH ×3 (08:12→15:25)
--- NOTE | 2022-05-10 08:53 | XR ---
EXAMINATION TYPE: XR chest 2V DATE OF EXAM: 05/10/2022 COMPARISON: 05/09/2022 TECHNIQUE: PA and lateral views submitted. HISTORY: Follow-up pneumothorax FINDINGS: There is a left apical pneumothorax measuring approximately 25- 30%. Postsurgical jacquard loom card changer the left cervical spine. Atherosclerotic change aorta. Subcutaneous emphysem a noted on the left with chest tubes underlying COPD suspected. Heart size normal. IMPRESSION: 1. Persistent left-sided pneumothorax measuring 25-30%
[2022-05-10 10:22] LABS: HCT 31.2 % (39.0-53.0); HGB 10.5 gm/dL (13.0-17.5); MCH 32.7 pg (25.0-35.0); MCHC 33.6 g/dL (31.0-37.0); MCV 97.3 fL (80.0-100.0); Mean Platelet Volume 7.3; Platelet Count 427 k/uL (150-450); RBC 3.21 m/uL (4.30-5.90); WBC 11.5 k/uL (3.8-10.6)
[2022-05-10 10:39] LABS: African American GFR (CKD) >90 (>60 ml/min/1.73 sqM); Anion Gap 10 mmol/L; Blood Urea Nitrogen 24 mg/dL (9-20); Calcium 9.7 mg/dL (8.4-10.2); Carbon Dioxide 22 mmol/L (22-30); Chloride 103 mmol/L (98-107); Glucose 113 mg/dL (74-99); Magnesium 1.8 mg/dL (1.6-2.3); Non-African American GFR(CKD) >90 (>60 ml/min/1.73 sqM); Potassium 5.3 mmol/L (3.5-5.1); Sodium 135 mmol/L (137-145)
[2022-05-10] MEDS: lisinopriL 10 MG TAB PO SCH (10:54)
[2022-05-10] MEDS: VIT A,C & E-LUTEIN-MINERALS 1 EACH TAB PO SCH (10:54)
[2022-05-10] MEDS: TAMSULOSIN 0.4 MG CAP.ER.24H PO SCH (10:54)
[2022-05-10] MEDS: FERROUS SULFATE 325 MG TAB PO SCH (10:55)
[2022-05-10] MEDS: HEPARIN SODIUM,PORCINE/PF 5,000 UNIT/0.5 ML SYRINGE SQ SCH (10:55)
[2022-05-10] MEDS: NICOTINE 14MG/24HR PATCH TRANSDERM SCH (10:55)
[2022-05-10] MEDS: amLODIPine 10 MG TAB PO SCH (10:55)
[2022-05-10] MEDS: allopurinoL 100 MG TAB PO SCH (10:55)
[2022-05-10] MEDS: SENNOSIDES-DOCUSATE SODIUM 1 EACH TAB PO SCH (10:55)
[2022-05-10] MEDS ORDERED: MAGNESIUM OXIDE 400 MG TAB PO STA (11:05)
[2022-05-10 11:22] VITALS: TEMP 98
--- NOTE | 2022-05-10 12:27 | P.PN ---
Subjective Progress Note Date: 05/10/22 Status post was resection of left upper lobe nodule, mediastinal node dissection and intercostal nerve block postoperative day #3 This is a very pleasant 66-year-old male patient who has a history of cervical neck pain and subsequent surgery in February 2022, hyperlipidemia, hypertension, chronic tobacco dependence of 50 years, chronic obstructive pulmonary disease with an FEV1 value of 45% of predicted. He is also found to have a left upper lobe cavitary nodule measuring 17 by 11 mm. a PET scan dated 02/02/2022 revealed necrotic neoplastic mass in the left upper lobe with an SUV level is 6.3 as well as a neoplastic nodule in the soft tissue of the left trapezius muscle medial to the left scaphoid with an SUV level of 6.3. He was seen and evaluated by CT services who brought the patient in today electively for a video-assisted left thorascopic wedge resection of the upper lobe nodule. Mediastinal lymph node dissection. Postop diagnosis of his non-small cell lung cancer. He is seen today in consultation on the selective care unit. Currently resting fairly comfortably in bed. Awake and alert. He is maintaining good O2 saturations in the upper 90s on 2 L/m per nasal cannula. Left-sided chest tube in place her chest x-ray reviewed. No significant pneumothorax. Blood glucose 157. He has been initiated on DuoNeb inhalations. Heparin for DVT prophylaxis. D5 and half-normal saline at 50 MLS per hour. Antibiotics in the form of cefazolin. Educated regarding the use of the incentive spirometer. The patient is seen today 04/29/2022 and a follow-up on the selective care unit. He is currently sitting up in a chair at the bedside. Awake and alert in no acute distress. He is maintaining O2 saturations in the 90s on room air. He's afebrile. Hemodynamically stable. He is working well with the incentive spirometer. Left-sided chest tube remains in place to Pleur-evac and wall suction. Positive leak. Positive pneumothorax on today's chest x-ray. White count 15.3. Hemoglobin 10.2. Sodium 133. Potassium 4.9. BUN 24. Creatinine 0.82. Glucose 111. He remains on DuoNeb inhalations. Heparin for DVT prophylaxis. Pain is currently well controlled. Reevaluated today on 05/01/22, patient is doing great, asymptomatic, continues to have chest tube in place, however is off suction. Chest x-ray showed minimal subcutaneous emphysema, intermittent air leak noted in the chest tube. Progress note dated 05/02/2022. The patient is again seen today in room 376. The patient has significant subcutaneous emphysema on his chest x-ray. The left-sided chest tube is still present. There is a clear-cut leak noted. The patient's currently on room air. He denies being short of breath. White count 8.7, hemoglobin 10.7, hematocrit 31.1, and platelet count 276,000. Sodium 135, potassium 4.4, chlorides 103, CO2 23, anion gap 9, BUN 21, creatinine 0.65. Calcium is 9. Magnesium is 1.7. Chest x-ray from May 02, show significant subcutaneous emphysema. There is also an apically placed left-sided chest tube, and possibly a small left apical pneumothorax. Progress note dated 05/05/2022. The patient is again seen today in room 376. He's currently on room air. He's not receiving any IV fluids. He looks very comfortable. Unfortunately, the patient still has a significant air leak, from that left-sided chest tube. For that reason, the chest tube is still in place. Chest x-ray is reviewed. Laboratory data includes a white count of 10.1, hemoglobin 11.1, hematocrit 39, and a platelet count of 382,000. Sodium 133, potassium 5.3, chlorides 100, CO2 21, anion gap 12, BUN 27, and creatinine 0.85. Today's chest x-ray shows ongoing subcutaneous emphysema, and a small left apical pneumothorax. Progress note dated 05/06/2022. The patient is seen in room 376. He remains on room air. He is not receiving IV fluids. The patient still has a leak from his left chest tube. The left chest tube is off of suction. The patient does not appear to have any distress. White count 8.2, hemoglobin 10.1 hematocrit 30.4, and platelet count 339,000. Sodium 130, potassium 5.4, chlorides 99, CO2 22, BUN 32, creatinine 0.98. Chest tube is noted in the left chest on today's chest x-ray. There is some subcutaneous emphysema. There is a small pneumothorax noted. Progress note dated 05/07/2022. The patient is again seen in room 376. The patient's currently on room air. Left chest tube is still in place. The patient's chest tube still demonstrates a leak. The patient is not receiving any IV fluids. He looks a bit dejected. He is now been here in the hospital for 9 days. The patient denies any shortness of breath, or chest discomfort. Chest x-ray does show a small left apical pneumothorax. Progress note dated 05/08/2022. The patient is again seen in room 376. He is resting comfortably. He is on room air. He has a left chest tube in place. There is still a leak present. The chest x-ray does show a left-sided pneumothorax. The patient is not receiving any IV fluids. No new laboratory data today. Chest x-ray is reviewe d. Because of the persistent left-sided pneumothorax, and the leak, the patient may end up needing surgery. On today's evaluation of 05/09/2022, the patient is being seen for a follow-up. The patient is postop day #11 following a video-assisted thoracoscopic wedge resection of the left upper lobe pulmonary nodule and mediastinal lymph node dissection. For now, the patient is on room air oxygen. The chest tube remains in place as the patient continues to have intermittent air leak while being on a water seal. Chest x-ray remains unchanged. There is still a persistent pneumothorax on the left in the order of 20-25% The patient is using the incentive spirometer. There is a likelihood that the patient may need to go home with a pneumostatic device depending on the presence of air leak. The patient has no complaints. Surgical one-sided dry clean and intact. The blood work from today shows a white cell count 9.2 with a hemoglobin of 10.4. Sodium is at 105 with a BUN of 22 and a creatinine of 0.8. 05/10/2022, the patient is being considered for discharge as the patient had a pneumostatic inserted into the left hemithorax. Noted the patient developed persistent pneumothorax and air leak following his white resection of the left upper lobe pulmonary nodule and mediastinal lymph node dissection. Today's postop day #12. He is on room air oxygen. He has no issues with pain. The morning chest x-ray earlier showed some subcutaneous emphysema along the left- sided chest and that she will was still in place with persistent pneumothorax. Otherwise, his labs are all within normal limits. His potassium is at 5.3, BUN is at 24 with a creatinine of 0.8 and a sodium level is at 135. The WBC count of 11.5 with a hemoglobin of 10.5. Objective - Vital Signs Vital signs: Vital Signs Temp 98.0 F 05/10/22 08:00 Pulse 84 05/10/22 11:42 Resp 18 05/10/22 08:00 BP 121/63 05/10/22 08:00 Pulse Ox 100 05/10/22 08:00 FiO2 21 05/08/22 19:35 Intake & Output 05/09/22 05/10/22 05/10/22 18:59 06:59 18:59 Intake Total 358 570 118 Output Total 500 610 Balance -142 -40 118 Weight 54.8 kg Intake: Oral 358 570 118 Output: Chest Tube Drainage 10 Left Posterior Chest 10 Urine 500 600 Other: Voiding Method Indwelling Catheter Indwelling Catheter Indwelling Catheter - Exam CONSTITUTIONAL: Appears comfortable, cooperative, no acute distress RESPIRATORY: Lungs sounds diminished bilaterally. Respirations even, nonlabored. Currently on room air with oxygen saturation 93%. Able to achieve 1000 mL on incentive spirometry. Strong cough. CARDIOVASCULAR: S1, S2 present. Regular rate and rhythm, sinus rhythm on telemetry. Palpable peripheral pulses bilaterally. No edema present. No calf pain or tenderness noted. SCDs present. GASTROINTESTINAL: Abdomen soft, nontender, nondistended. Active bowel sounds present 4 quadrants. Tolerating diet. Positive bowel movement 05/08 GENITOURINARY: Tinsley catheter present, draining clear, yellow urine, 1100 mL in last 24 hours INTEGUMENTARY: Skin is warm and dry with evidence of good perfusion. Thoracic incision well approximated and covered with dry intact dressing. NEUROLOGIC: Cranial nerves II through XII intact MUSKULOSKELETAL: Able to move all extremities, strength equal bilaterally, gait normal PSYCHIATRIC: Alert and oriented to person place and time, appropriate affect, intact judgment and insight INVASIVE LINES AND TUBES: Left pleural chest tube present to waterseal, air leaks present with coughing, no drainage in the last 24 hours, Pneumostat placed this morning - Labs CBC & Chem 7: 05/10/22 09:43 05/10/22 09:43 Labs: Abnormal Lab Results - Last 24 Hours (Table) 05/10/22 05/10/22 Range/Units 09:43 09:43 WBC 11.5 H (3.8-10.6) k/uL RBC 3.21 L (4.30-5.90) m/uL Hgb 10.5 L (13.0-17.5) gm/dL Hct 31.2 L (39.0-53.0) % Sodium 135 L (137-145) mmol/L Potassium 5.3 H (3.5-5.1) mmol/L BUN 24 H (9-20) mg/dL Glucose 113 H (74-99) mg/dL Assessment and Plan Plan: 1.3 x 2.2 x 1.5 cm left upper lobe necrotic cavitating mass, status post left upper lobe wedge resection for suspected non-small cell carcinoma, postop day #12. Unfortunately, the patient has a persistent air leak, and left chest tube is present, with a persistent left-sided pneumothorax. There is persistent air leak and another 20% pneumothorax on the left on today's chest x-ray noted the patient had a pneumostat device placed in today and the plan is to discharge him home with subsequent follow-up. He did have persistent pneumothorax on today's chest x-ray with persistent air leak. Based on that, a pneumo stat device was inserted and the patient is being considered for discharge. Postop staging was T2 N0 M0, squamous cell carcinoma, consistent with stage IB disease 1.6 cm soft tissue density, posterior back, under the left trapezius muscle. COPD, with an FEV1 of 35% of predicted. Chronic tobacco dependence of greater than 50 years. History of hypertension. History of hyperlipidemia. Cervical neck pain, with subsequent surgery, February 2022. Plan Continue using incentive spirometer pneumostat inserted FU chest x-rays Continue bronchodilators Continue Flomax Outpatient follow-up with cardiothoracic surgery and pulmonary We'll continue to follow.
[2022-05-10] MEDS: KETOROLAC 15 MG/ML 1 ML VIAL IVP PRN (13:24)
--- NOTE | 2022-05-10 14:16 | P.DS ---
Providers Date of admission: 04/28/22 05:53 Expected date of discharge: 05/10/22 Attending physician: Ankur Boothe MD Consults: 04/28/22 13:32 Consult Physician Routine Consulting Provider: Penelope Chan Consult Reason/Comments: post lung wedge biopsy Do you want consulting provider notified?: Yes 04/30/22 08:25 Consult Physician Routine Consulting Provider: Maurizio Moreno Consult Reason/Comments: Urinary retention Do you want consulting provider notified?: Yes Primary care physician: Osiris Garcia Hospital Course: FINAL DIAGNOSIS: 1. 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 History of hypertension 3. History of hyperlipidemia 4. Chronic tobacco dependence of 50 years 5. Severe chronic obstructive pulmonary disease with preoperative FEV1 47% of predicted 6. Gout 7. Osteoarthritis 8. Urinary retention, secondary to underlying BPH 9. Prolonged air leak, pneumothorax PRINCIPAL PROCEDURE: 1. Bronchoscopy, video-assisted left thoracoscopic surgery with wedge resection of the left upper lobe nodule 2. Mediastinal lymph node dissection 3. Intercostal nerve block with 0.5% Marcaine with epinephrine at 3 levels HISTORY OF PRESENT ILLNESS: This is a 66-year-old gentleman who follows on an outpatient basis with Dr Garcia for primary care. He had a lung cancer screening CT ordered by his primary care physician due to his smoking history. This demonstrated a right upper lobe cavitary nodule measuring 1.7 x 1.1 cm. Subsequently he underwent PET/CTs scan demonstrating FDG avidity in this lesion without any mediastinal adenopathy or other avidity. The PET/CT also showed a 1.6 cm soft tissue density under the left trapezius muscle. The patient had recently quit smoking, and his only significant symptomatology was chronic productive cough. The patient was referred to Dr. Boothe from cardiothoracic surgery. He was recommended to undergo bronchoscopy and left VATS with wedge resection of the left upper nodule as well as mediastinal lymph node dissection. He was not deemed to be a candidate for lobectomy due to his poor lung function. The usual perioperative course was discussed in detail with the patient, all risks and benefits were explained, all questions were answered, and consent was obtained to proceed with surgery. The patient was scheduled for elective surgery at the earliest possible agreed-upon date. HOSPITAL COURSE: The patient was brought to the hospital on 04/28/22, taken to the preoperative area, prepared in the usual fashion, and subsequently taken to the operating room where Dr. Boothe performed a bronchoscopy, left VATS wedge resection of the left upper nodule with mediastinal lymph node dissection. Upon completion of surgery the patient was extubated and taken to the recovery room for further monitoring. He was eventually admitted to 3 S. cardiac stepdown unit for further hemodynamic monitoring. His hospital stay was prolonged due to continued intermittent air leak as well as stable pneumothorax. In addition he developed urinary retention due to his underlying BPH and Jones catheter was reinserted. Patient did not want to be discharged with jones catheter, trial void was given with patient able to void, minimal residual, jones left out at p atient request. His oxygen was titrated down, he was ambulatory without difficulty, he was tolerating oral diet, his pain was controlled, a Pneumostat device was placed to the patient's chest tube site with instructions for how to look for a continued air leak, and he was ready to be discharged to home on postoperative day #12. He received written and verbal instruction regarding his medications, activity restrictions, signs and symptoms requiring physician notification, and follow-up appointments. Patient Condition at Discharge: Stable Plan - Discharge Summary Discharge Rx Participant: Yes New Discharge Prescriptions: New Acetaminophen Tab [Tylenol] 650 mg PO Q4HR PRN tab PRN Reason: Fever And/ Or Pain Tamsulosin [Flomax] 0.4 mg PO PC-BRKFST #30 cap Nicotine 14Mg/24Hr Patch [Habitrol] 1 patch TRANSDERM DAILY patch Sennosides-Docusate Sodium [Senokot-S] 1 each PO BID PRN tab PRN Reason: Constipation Continue allopurinoL [Zyloprim] 100 mg PO BID Atorvastatin [Lipitor] 10 mg PO HS Iron 25 mg PO DAILY amLODIPine [Norvasc] 10 mg PO DAILY Vit C/E/Zn/Coppr/Lutein/Zeaxan [Preservision Areds 2 Softgel] 1 each PO DAILY Fluticasone Propionate 110 Mcg [Flovent 110 Mcg Inhaler] 2 puff INHALATION BID Ipratropium-Albuterol Nebulize [Duoneb 0.5 mg-3 mg/3 ml Soln] 3 ml INHALATION QID lisinopriL [Zestril] 10 mg PO DAILY Discharge Medication List Atorvastatin [Lipitor] 10 mg PO HS 02/04/22 [History] Fluticasone Propionate 110 Mcg [Flovent 110 Mcg Inhaler] 2 puff INHALATION BID 02/04/22 [History] Ipratropium-Albuterol Nebulize [Duoneb 0.5 mg-3 mg/3 ml Soln] 3 ml INHALATION QID 02/04/22 [History] Iron 25 mg PO DAILY 02/04/22 [History] Vit C/E/Zn/Coppr/Lutein/Zeaxan [Preservision Areds 2 Softgel] 1 each PO DAILY 02/04/22 [History] allopurinoL [Zyloprim] 100 mg PO BID 02/04/22 [History] amLODIPine [Norvasc] 10 mg PO DAILY 02/04/22 [History] lisinopriL [Zestril] 10 mg PO DAILY 02/04/22 [History] Acetaminophen Tab [Tylenol] 650 mg PO Q4HR PRN tab 05/10/22 [Rx] Nicotine 14Mg/24Hr Patch [Habitrol] 1 patch TRANSDERM DAILY patch 05/10/22 [Rx] Sennosides-Docusate Sodium [Senokot-S] 1 each PO BID PRN tab 05/10/22 [Rx] Tamsulosin [Flomax] 0.4 mg PO PC-BRKFST #30 cap 05/10/22 [Rx] Follow up Appointment(s)/Referral(s): Whitney Jacobo MD [STAFF PHYSICIAN] - As Needed Osiris Garcia DO [Primary Care Provider] - As Needed Ankur Boothe MD [STAFF PHYSICIAN] - 05/13/22 2:30 pm (Please have chest x-ray completed at the hospital prior to your appointment) Lucien De La Cruz MD [STAFF PHYSICIAN] - 05/20/22 10:00 am Maurizio Moreno MD [STAFF PHYSICIAN] - 05/24/22 8:00 am Ambulatory/Diagnostic Orders: XR chest 2V [RAD.AMB] Time Frame: 05/13/22, Facility: [facility], Location: [facility] Activity/Diet/Wound Care/Special Instructions: DISCHARGE INSTRUCTIONS: 1. No driving for 2 weeks, or until physician gives their ok. 2. No lifting, pushing, or pulling more than 10 pounds for 2 weeks. The physician will advise of any restriction changes. 3. Continue pain control per as needed orders. Alternate acetaminophen (Tylenol) and ibuprofen (Motrin/Advil) for pain. 4. Continue with incentive spirometry and splinting until otherwise directed by the physician. 5. Pneumostat to be checked daily for air leak 6. Routine incision care. No powders, lotions, ointments on incisions. 7. Please call surgeon/PETROLEUM INSPECTOR for temp greater than 101 F or purulent drainage from incisions. 8. Smoking cessation counseling and program information provided. 9. Leg bag to be emptied twice daily and as needed Discharge Disposition: HOME SELF-CARE
[2022-05-10 14:55] VITALS: BP 130/60
[2022-05-10 15:45] VITALS: PULSE 80
== END 2022-05-10 15:58 | disposition home or self-care (01) | DRG 166 ==
LOC: 2ORMAIN 05:53 → 3SCARD 13:08
PROVIDERS: ADMIT Thoracic Surgery (Cardiothoracic Vascular Surgery); ATTEND Thoracic Surgery (Cardiothoracic Vascular Surgery)
PROC: 0BBG8ZX Excision of Left Upper Lung Lobe, Via Natural or Artificial Opening Endoscopic, Diagnostic (ICD-10-PCS; 2022-04-28)
PROC: 3E0T3BZ Introduction of Anesthetic Agent into Peripheral Nerves and Plexi, Percutaneous Approach (ICD-10-PCS; 2022-04-28)
PROC: 07B74ZX Excision of Thorax Lymphatic, Percutaneous Endoscopic Approach, Diagnostic (ICD-10-PCS; principal; 2022-04-28 07:30)
DX: C34.12 Malignant neoplasm of upper lobe, left bronchus or lung (principal); J96.01 Acute respiratory failure with hypoxia; J93.82 Other air leak; J98.11 Atelectasis; T79.7XXA Traumatic subcutaneous emphysema, initial encounter; J44.9 Chronic obstructive pulmonary disease, unspecified; E11.9 Type 2 diabetes mellitus without complications; I10 Essential (primary) hypertension; E78.5 Hyperlipidemia, unspecified; R33.8 Other retention of urine; N40.1 Benign prostatic hyperplasia with lower urinary tract symptoms; M10.9 Gout, unspecified; M19.90 Unspecified osteoarthritis, unspecified site; K59.00 Constipation, unspecified; Z79.899 Other long term (current) drug therapy; Z87.891 Personal history of nicotine dependence
CPT/HCPCS: 64999; 71045; 71046; 80048; 80053; 81001; 83735; 85025; 85027; 86850; 86900; 86901; 88305; 88307; 88313; 88331; 88342; 94640; 94760

== ENCOUNTER → 2022-05-13 | Outpatient (CLI) | payer MEDICARE ==
--- NOTE | 2022-05-13 14:53 | XR ---
EXAMINATION TYPE: XR chest 2V DATE OF EXAM: 05/13/2022 COMPARISON: 05/10/2022 TECHNIQUE: PA and lateral views submitted. HISTORY: Pneumothorax FINDINGS: Hyperinflation compatible COPD there is a persistent left-sided pneumothorax measuring approximately 25-30%. Air along the lower margin of the pleura also likely is contained within the thorax rather th an representing free intra-abdominal air but should be correlated clinically. Soft tissue emphysema i s noted. Arthropathy of the shoulders. Hyperinflation suggests COPD. Atherosclerotic change aorta. De generative changes spine. IMPRESSION: 1. There is a stable approximately 25-30% left-sided pneumothorax.
== END | disposition home or self-care (01) ==
LOC: LABWHC1 14:06
PROVIDERS: ATTEND Thoracic Surgery (Cardiothoracic Vascular Surgery)
DX: J93.9 Pneumothorax, unspecified (principal)
CPT/HCPCS: 71046

== ENCOUNTER → 2022-05-30 | Outpatient (CLI) | payer MEDICARE ==
--- NOTE | 2022-05-30 12:30 | XR ---
EXAMINATION TYPE: XR chest 2V DATE OF EXAM: 05/30/2022 COMPARISON: 05/13/2022 TECHNIQUE: PA and lateral views submitted. HISTORY: Follow-up pneumothorax FINDINGS: There is new left apical pleural thickening which could be on the basis of post chest tube placement. No sizable pneumothorax. Cannot exclude a tiny less than 5 5% pneumothorax at the left costophrenic angle. Underlying COPD noted. Atherosclerotic change aorta. Arthropathy of the shoulders. Heart size normal. IMPRESSION: 1. A left-sided chest tube with near-complete resolution of pneumothorax. There is new left apical pl eural-based density which could be related to the chest tube placement. Small amount of pleural hemor rhage not excluded correlate clinically.
== END | disposition home or self-care (01) ==
LOC: RADXRMAIN 11:47
PROVIDERS: ATTEND Thoracic Surgery (Cardiothoracic Vascular Surgery)
DX: J93.0 Spontaneous tension pneumothorax (principal); J98.4 Other disorders of lung; Z97.8 Presence of other specified devices
CPT/HCPCS: 71046

== ENCOUNTER → 2022-11-09 | Outpatient (CLI) | payer MEDICARE ==
[2022-11-09 11:54] LABS: African American GFR (CKD) >90 (>60 ml/min/1.73 sqM); Blood Urea Nitrogen 18 mg/dL (9-20); Non-African American GFR(CKD) >90 (>60 ml/min/1.73 sqM)
--- NOTE | 2022-11-09 12:47 | CT ---
EXAMINATION TYPE: CT chest w con DATE OF EXAM: 11/09/2022 COMPARISON: Prior chest CT August 12, 2022 and older studies. HISTORY: Left-sided Lung cancer. CT DLP: 358 mGycm. Automated Exposure Control for Dose Reduction was Utilized. TECHNIQUE: CT scan of the thorax is performed following with IV Contrast, patient injected with 100m l mL of Isovue 300. FINDINGS: LUNGS: Mild to moderate underlying emphysematous change is redemonstrated. Posttreatment change to th e left upper lung with linear scarring extending inferiorly is again seen. No new or enlarging greate r than 5 mm pulmonary nodules. Occasional scattered micronodule in the superior aspect right lower lo be axial image 18 posteriorly are stable. No pleural effusion or pneumothorax seen bilaterally. MEDIASTINUM: There are no new or enlarging greater than 1 cm hilar or mediastinal lymph nodes. No c ardiomegaly or pericardial effusion is seen. Some coronary artery calcification is redemonstrated. OTHER: No additional significant abnormality is seen. IMPRESSION: Stable posttreatment change to the left upper lung. No new or enlarging nodules or thorac ic adenopathy seen to suggest active neoplastic recurrence
== END | disposition home or self-care (01) ==
LOC: RADCTMAIN 10:59
PROVIDERS: ATTEND Internal Medicine
DX: C34.12 Malignant neoplasm of upper lobe, left bronchus or lung (principal)
CPT/HCPCS: 82565; 84520; 71260; 36415; Q9967

== ENCOUNTER → 2023-02-09 | Outpatient (CLI) | payer MEDICARE ==
[2023-02-09 12:36] LABS: African American GFR (CKD) >90 (>60 ml/min/1.73 sqM); Blood Urea Nitrogen 16 mg/dL (9-20); Non-African American GFR(CKD) >90 (>60 ml/min/1.73 sqM)
--- NOTE | 2023-02-09 13:25 | CT ---
EXAMINATION TYPE: CT chest w con CT DLP: 202.20 mGycm, Automated exposure control for dose reduction was used. DATE OF EXAM: 02/09/2023 1:13 PM COMPARISON: CT chest 11/09/2022, 08/12/2022 CLINICAL INDICATION:Male, 67 years old with history of C34.12 LUNG CANCER; PHH, Lung Cancer TECHNIQUE: Multiple axial images were obtained through the chest following the administration of 100 cc of Isovue 300. . Coronal and sagittal reformats reviewed. FINDINGS: LUNGS/ PLEURA: Mild to moderate underlying emphysematous change is redemonstrated. Posttreatment martinez ge to the left upper lung with linear scarring extending inferiorly is again seen. No new or enlargin g pulmonary nodules. No pleural effusion or pneumothorax seen bilaterally. AIRWAY: Patent and unremarkable.. HEART: Size within normal limits. No pericardial effusion. Mild coronary artery calcifications. MEDIASTINUM: No evidence of adenopathy. VASCULATURE: No aortic aneurysm. Atherosclerotic calcification of the aorta and its branches. MUSCULOSKELETAL: No acute osseous abnormalities. Mild degenerative changes of the thoracic spine. No aggressive osseous lesion. Mild retrolisthesis of L1 on L2. Bilateral total hip arthroplasty changes demonstrated on the neuropsychology division chief radiograph. Partial visualization of cervical fusion hardware. SOFT TISSUES/LYMPH NODES: Unremarkable. LOWER NECK: No significant findings. UPPER ABDOMEN: Few peripheral hepatic hyperattenuating foci most consistent with vascular shunts. IMPRESSION: Stable posttreatment change to the left upper lung. No new or enlarging nodules or thoracic adenopath y seen to suggest active neoplastic recurrence.
== END | disposition home or self-care (01) ==
LOC: RADCTMAIN 11:54
PROVIDERS: ATTEND Internal Medicine
DX: C34.12 Malignant neoplasm of upper lobe, left bronchus or lung (principal); Z98.890 Other specified postprocedural states
CPT/HCPCS: 82565; 84520; 71260; 36415; Q9967

== ENCOUNTER → 2023-02-28 | Outpatient (CLI) | payer MEDICARE ==
--- NOTE | 2023-03-02 10:04 | MR ---
EXAMINATION TYPE: MR cervical spine wo/w con DATE OF EXAM: 02/28/2023 5:36 PM COMPARISON: NONE HISTORY: Neck and meaghan shoulder pain CONTRAST: The patient was injected with 6 mL intravenous Gadavist gadolinium contrast. Multiplanar MultiSpin echo imaging of the cervical spine was performed. C2-C3: There is moderate disc desiccation with posterior disc bulge. Hypertrophic changes result in c onstriction of the thecal sac with mild central stenosis. There is posterior impression upon the cerv ical spinal cord and mild kinking at this level. There is thinning of the spinal cord and increased s ignal which may reflect myelopathy. C3-C4: Changes of anterior cervical discectomy and fusion. Normal postoperative alignment. Thinning o f the cervical spinal cord and increased signal at the C3 level. Mild bilateral foraminal encroachmen t. C4-C5: Changes of anterior cervical discectomy and fusion. Normal postoperative alignment. Thinning o f the cervical spinal cord and increased signal at the C3 level. Mild bilateral foraminal encroachmen t. C5-C6: Mild disc desiccation. Posterior disc bulge. No evidence for herniation protrusion or central stenosis. Moderate to severe right-sided foraminal encroachment. C6-C7: Severe disc desiccation. Mild posterior disc bulge. Small posterocentral disc protrusion. Mild effacement ventral thecal sac. No evidence for central stenosis. Moderate bilateral foraminal encroa chment. C7-T1: No evidence for degenerative disc disease. No disc bulge/herniation or protrusion. No Canal stenosis. Foramina are patent bilaterally. No cervical spine fracture. There is normal alignment. No pathologic enhancement identified. Craniov ertebral junction relationships are within normal limits. No pathologic enhancement. IMPRESSION: 1. Moderate disc desiccation with disc bulge and hypertrophic changes at C2-3 with mild central steno sis. Posterior impression upon the cervical spinal cord and mild kinking noted. Compressive myelopath y noted. 2. Postoperative changes of ACDF with normal postoperative alignment and no evidence for recurrent di sease. 3. Foraminal encroachment as outlined above. 4. Small disc protrusion at C6-7.
== END | disposition home or self-care (01) ==
LOC: RADMRIMAIN 16:44
PROVIDERS: ATTEND Orthopaedic Surgery Orthopaedic Surgery of the Spine
DX: M50.11 Cervical disc disorder with radiculopathy, high cervical region (principal); M25.78 Osteophyte, vertebrae; R29.2 Abnormal reflex; M50.122 Cervical disc disorder at C5-C6 level with radiculopathy; M50.123 Cervical disc disorder at C6-C7 level with radiculopathy; M50.121 Cervical disc disorder at C4-C5 level with radiculopathy; R26.89 Other abnormalities of gait and mobility
CPT/HCPCS: 72156; A9585

== ENCOUNTER → 2023-05-12 | Outpatient (CLI) | payer MEDICARE ==
[2023-05-12 11:17] LABS: African American GFR (CKD) >90 (>60 ml/min/1.73 sqM); Blood Urea Nitrogen 29 mg/dL (9-20); Non-African American GFR(CKD) >90 (>60 ml/min/1.73 sqM)
--- NOTE | 2023-05-12 13:28 | CT ---
EXAMINATION TYPE: CT chest w con DATE OF EXAM: 05/12/2023 COMPARISON: 02/09/2023 and 08/12/2022 HISTORY: 67-year-old male C34.12, Hx lung ca, follow up TECHNIQUE: Contiguous axial scanning of the chest after the administration of 100 mL of Isovue 300. Coronal/sagittal reconstructions performed. CT DLP: 229.30mGycm. Automatic exposure control utilized for a dose reduction. FINDINGS: Heart normal size without pericardial effusion. Mild scattered three-vessel coronary artery calcifica tions are present. Aorta normal caliber with mild atherosclerotic arch calcifications. Mild atherosclerotic narrowing at the origin of the left subclavian artery. Conventional arch vessel branching anatomy. No thoracic lymphadenopathy by CT size criteria. Unchanged patchy scarring lateral basilar right middle lobe. Unchanged vague 4 mm nodularity right upper lobe, axial image 25. Mild diffuse bronchial wall thickening. Moderate upper lung predominant centrilobular and paraseptal emphysema. Surgical material along the left upper and midlung coursing along the major fissure. Some associated scarring is present here. The overall appearance remains unchanged. No consolidation or pleural effusion. Visualized upper abdomen shows suspected moderate fatty infiltration of the liver. [id number] a therosclerotic calcifications abdominal aorta. Possible moderate or severe atherosclerotic narrowing of the origin of the SMA. Bones: Severe degenerative disc disease L-1-L2 with facet arthropathy and grade 1 retrolisthesis both at L1-L2 and L2-L3. No osseous destructive process. IMPRESSION: 1. COPD with moderate upper lung emphysema. 2. Post resection changes left upper to mid lung along the major fissure with associated scarring rem ains unchanged. No evidence for recurrent disease in the chest. 3. A nonspecific 4 mm nodule right upper lobe remains unchanged. 4. Incidental: Hepatic steatosis and possible moderate or severe stenosis at the origin of the SMA.
== END | disposition home or self-care (01) ==
LOC: RADCTMAIN 10:34
PROVIDERS: ATTEND Internal Medicine
DX: C34.12 Malignant neoplasm of upper lobe, left bronchus or lung (principal); J43.2 Centrilobular emphysema; D64.9 Anemia, unspecified; R91.1 Solitary pulmonary nodule
CPT/HCPCS: 82565; 84520; 71260; 36415; Q9967

== ENCOUNTER 2023-08-25 08:46 | Day surgery (SDC) | payer MEDICARE ==
[~2023-08-25 08:46] MED LIST changes: +LACTATED RINGERS 1,000 ML IV SCH; +LIDOCAINE 1% (10MG/ML) FOR IV START INTRADERMA PRN; +ONDANSETRON 4 MG/2 ML VIAL IVP PRN; -ceFAZolin 1,000 MG in SODIUM CHLORIDE 0.9% IRRIGATIO 1,000 ML IRRIGATION PRN
[2023-08-25] MEDS: LACTATED RINGERS 1,000 ML IV ONE ×2 (09:10→09:48)
[2023-08-25 09:21] VITALS: TEMP 97.3
[2023-08-25 09:37] LABS: Glucose,Whole Blood 111 mg/dL (70-110)
[2023-08-25] MEDS ORDERED: PROPOFOL 10 MG/ML 20 ML VIAL IV ONE (09:49)
--- NOTE | 2023-08-25 10:03 | P.PCN ---
Date of Procedure: 08/25/23 Procedure(s) Performed: BRIEF HISTORY: Patient is a 68-year-old pleasant male scheduled for an elective colonoscopy as a part of evaluation of prior history of colon polyps. His last colonoscopy was 5 years ago. PROCEDURE PERFORMED: Colonoscopy and biopsy. PREOPERATIVE DIAGNOSIS: History of colon polyps. IV sedation per Anesthesia. PROCEDURE: After informed consent was obtained, the patient, was brought into the endoscopy unit. IV sedation was administered by Anesthesia under continuous monitoring. Digital rectal examination was normal. Initially the Olympus CF-160 flexible video colonoscope was then inserted in the rectum, gradually advanced into the cecum without any difficulty. Careful examination was performed as the scope was gradually being withdrawn. Ileocecal valve and the appendiceal orifice were visualized and appeared normal. Prep was excellent. Mucosa of the cecum, ascending colon, transverse colon, descending colon, appeared normal. Scattered sigmoid diverticulosis seen. In the distal sigmoid centimeters submucosal lipoma identified. Rest of the appeared normal. In the ascending colon there was a 3 mm polyp that was removed by cold biopsy. Rest of the sigmoid colon, and rectum appeared normal. Retroflexion was performed in the rectum and no lesions were seen. The patient tolerated the procedure well. IMPRESSION: 3 mm ascending colon polyp status post-cold biopsy Scattered sigmoid diverticulosis 3 cm sigmoid submucosal lipoma RECOMMENDATIONS: Findings of this examination were discussed with the patient as his family.. He was advised to follow with the biopsy results. If the biopsy results and we can have a repeat colonoscopy in 5 years.
[2023-08-25 10:25] VITALS: PULSE 57; RESP 16
[2023-08-25 10:57] VITALS: BP 115/78
== END 2023-08-25 10:37 | disposition home or self-care (01) ==
LOC: ORWHC2ENDO 08:46
PROVIDERS: ATTEND Internal Medicine Gastroenterology
DX: Z12.11 Encounter for screening for malignant neoplasm of colon (principal); D12.2 Benign neoplasm of ascending colon; K57.30 Diverticulosis of large intestine without perforation or abscess without bleeding; D17.5 Benign lipomatous neoplasm of intra-abdominal organs; Z86.010 Personal history of colon polyps; Z79.899 Other long term (current) drug therapy; Z79.51 Long term (current) use of inhaled steroids; Z87.891 Personal history of nicotine dependence
CPT/HCPCS: 88305; 45380; J2704

== ENCOUNTER → 2023-09-21 | Outpatient (CLI) | payer MEDICARE ==
[2023-09-21 12:25] LABS: African American GFR (CKD) >90 (>60 ml/min/1.73 sqM); Blood Urea Nitrogen 18 mg/dL (9-20); Non-African American GFR(CKD) >90 (>60 ml/min/1.73 sqM)
--- NOTE | 2023-09-21 13:51 | CT ---
Exam: CT Chest with contrast. Date: 09/21/2023. Comparison: None History: Follow-up for lung cancer. Technique: CT examination of the chest was performed following the intravenous administration of 100 mL of Isovue-370. Coronal and sagittal reformats were performed. CT dose lowering techniques were us ed, to include: automated exposure control, adjustment for patient size, and/or use of iterative giblert nstruction. FINDINGS: Mediastinum and Jacqueline: There is no axillary, mediastinal or hilar lymphadenopathy. Pleural and Pericardial spaces: There are no pleural or pericardial effusions. Upper Abdomen: The visualized upper abdomen is unremarkable. Cardiovascular: There is moderate vascular calcification and plaque seen throughout the thoracic aort a without evidence of aneurysmal dilation or dissection. There are mild patchy coronary artery calcif ications. Pulmonary Artery: There are no central pulmonary arterial abnormalities. The examination was not per formed to evaluate for pulmonary embolism. Lung Parenchyma and Airways: There appears to be prior postsurgical changes in the posterior aspect o f the left upper lobe which likely relates to an area of wedge resection and is unchanged. Mild to mo derate upper lobe predominant centrilobular emphysema. Bones: No fracture or aggressive osseous lesion. IMPRESSION: 1. Unchanged prior surgical changes within the left upper lobe with no definitive residual or recurre nt disease identified. 2. Emphysema.
== END | disposition home or self-care (01) ==
LOC: RADCTMAIN 11:43
PROVIDERS: ATTEND Internal Medicine
DX: C34.12 Malignant neoplasm of upper lobe, left bronchus or lung (principal); J43.2 Centrilobular emphysema; D64.9 Anemia, unspecified
CPT/HCPCS: 82565; 84520; 71260; 36415; Q9967

== ENCOUNTER → 2024-01-12 | Outpatient (CLI) | payer MEDICARE ==
[2024-01-12 11:19] LABS: African American GFR (CKD) >90 (>60 ml/min/1.73 sqM); Blood Urea Nitrogen 24 mg/dL (9-20); Non-African American GFR(CKD) >90 (>60 ml/min/1.73 sqM)
--- NOTE | 2024-01-12 20:39 | CT ---
EXAMINATION TYPE: CT chest w con CT DLP: 179.92 mGycm, Automated exposure control for dose reduction was used. DATE OF EXAM: 01/12/2024 11:42 AM COMPARISON: 09/21/2023 CLINICAL INDICATION:Male, 68 years old with history of C34.12 LUNG CA; PHH, hx lung ca TECHNIQUE: Multiple axial images were obtained through the chest. Sagittal and coronal reformats were created for review. Contrast used:100 mL of Isovue 300 with IV Contrast (None if empty) Oral contrast used: (None if empty) FINDINGS: LUNGS/ PLEURA: Posttreatment changes left upper lobe. No new or enlarging mass. Moderate paraseptal e mphysema changes. Stable right upper lobe opacity series 3 image 25. AIRWAY: Patent and unremarkable. HEART: Size within normal limits. MEDIASTINUM: No gross evidence of adenopathy. VASCULATURE: No aortic aneurysm. MUSCULOSKELETAL: No acute osseous abnormalities SOFT TISSUES/LYMPH NODES: Unremarkable. LOWER NECK: No significant findings. UPPER ABDOMEN: No significant findings. IMPRESSION: 1. Stable postsurgical changes no new or enlarging pulmonary nodules. 2. Mild emphysema.
== END | disposition home or self-care (01) ==
LOC: RADCTMAIN 10:27
PROVIDERS: ATTEND Internal Medicine
DX: C34.12 Malignant neoplasm of upper lobe, left bronchus or lung (principal); D64.9 Anemia, unspecified; J43.9 Emphysema, unspecified
CPT/HCPCS: 82565; 84520; 71260; 36415; Q9967

== ENCOUNTER → 2024-05-10 | Outpatient (CLI) | payer MEDICARE ==
[2024-05-10 12:31] LABS: African American GFR (CKD) >90 (>60 ml/min/1.73 sqM); Blood Urea Nitrogen 25 mg/dL (9-20); Non-African American GFR(CKD) 88 (>60 ml/min/1.73 sqM)
--- NOTE | 2024-05-10 13:05 | CT ---
EXAMINATION TYPE: CT chest w con CT DLP: 194.60 mGycm, Automated exposure control for dose reduction was used. DATE OF EXAM: 05/10/2024 12:47 PM COMPARISON: Multiple CT chest with most recent 01/12/2024 CLINICAL INDICATION:Male, 68 years old with history of C34.12 MALIGNANT NEOPLASM OF UPPER LOBE, LEFT BRON; PHH, hx of lung ca TECHNIQUE: Multiple axial images were obtained through the chest following the administration of 100 cc of Isovue 300. . Coronal and sagittal reformats reviewed. FINDINGS: LUNGS/ PLEURA: Posttreatment changes to the left upper lobe with suture material linear scarring. Few stable nodular densities identified within the lungs with largest in the right apex measuring up to 7 mm. No new or enlarging mass. Mild centrilobular and paraseptal emphysematous changes. AIRWAY: Patent and unremarkable. HEART: Size within normal limits. No pericardial effusion MEDIASTINUM: No evidence of adenopathy. VASCULATURE: No aortic aneurysm. Mild to moderate atherosclerotic calcification of the aorta and its branches. MUSCULOSKELETAL: No acute osseous abnormalities. No aggressive osseous lesion. Mild retrolisthesis of L1 on L2. SOFT TISSUES/LYMPH NODES: Unremarkable. LOWER NECK: No significant findings. UPPER ABDOMEN: No significant findings. IMPRESSION: 1. Stable posttreatment changes to the left upper lung with no new or enlarging pulmonary nodules. 2. Mild emphysema. [facility], , 05/10/2024 1:03 PM
== END | disposition home or self-care (01) ==
LOC: RADCTMAIN 11:56
PROVIDERS: ATTEND Internal Medicine
DX: C34.12 Malignant neoplasm of upper lobe, left bronchus or lung (principal); J43.9 Emphysema, unspecified; D64.9 Anemia, unspecified; Z98.890 Other specified postprocedural states
CPT/HCPCS: 82565; 84520; 71260; 36415; Q9967

== ENCOUNTER → 2024-11-05 | Outpatient (CLI) | payer MEDICARE ==
[2024-11-05 11:34] LABS: African American GFR (CKD) >90 (>60 ml/min/1.73 sqM); Blood Urea Nitrogen 18 mg/dL (9-20); Non-African American GFR(CKD) >90 (>60 ml/min/1.73 sqM)
--- NOTE | 2024-11-05 14:29 | CT ---
CT chest with contrast HISTORY: Malignant neoplasm of left upper lobe. COMPARISON: 05/10/2024. TECHNIQUE: Multiple axial images are obtained through the chest following IV contrast. FINDINGS: There are mild emphysematous changes. There are postsurgical changes in the left upper lobe of wedge resection. There is mild focal postsur gical interstitial density but no recurrent mass or nodule. There is a new 5 mm nodule in the right upper lobe.. There is no airspace consolidation. There is no pleural effusion, pleural thickening or pneumothorax. The great vessels the chest are normal with no mediastinal, hilar or axillary adenopathy. There is no pulmonary embolus. There is again to the upper abdomen reveals no gross abnormality. No focal osseous lesions are seen. IMPRESSION: 1. Postsurgical changes in left upper lobe consistent with wedge resection. 2. New 5 mm nodule right upper lobe. The possibility of metastatic nodules not excluded and follow-up CT thorax in 3 months is recommended. 3. Mild emphysematous changes. [facility], Workstation: [id number] 11/05/2024 2:27 PM
== END | disposition home or self-care (01) ==
LOC: RADCTMAIN 10:56
PROVIDERS: ATTEND Internal Medicine
DX: C34.12 Malignant neoplasm of upper lobe, left bronchus or lung (principal); D64.9 Anemia, unspecified; J43.9 Emphysema, unspecified; Z98.890 Other specified postprocedural states
CPT/HCPCS: 82565; 84520; 71260; 36415; Q9967

== ENCOUNTER → 2025-02-03 | Outpatient (CLI) | payer MEDICARE ==
[2025-02-03 14:08] LABS: African American GFR (CKD) >90 (>60 ml/min/1.73 sqM); Blood Urea Nitrogen 24 mg/dL (9-20); Non-African American GFR(CKD) 89 (>60 ml/min/1.73 sqM)
--- NOTE | 2025-02-03 15:21 | CT ---
EXAMINATION TYPE: CT chest w con CT DLP: 360 mGycm, Automated exposure control for dose reduction was used. DATE OF EXAM: 02/03/2025 2:34 PM COMPARISON: CT chest 11/05/2024. CLINICAL INDICATION:Male, 69 years old with history of C34.12 MALIGNANT NEOPLASM OF UPPER LOBE, LEFT BRON; PHH, f/u lung ca TECHNIQUE: Multiple axial images were obtained through the chest. Sagittal and coronal reformats were created for review. Contrast used:100 mL of Isovue 300 with IV Contrast (None if empty) Oral contrast used: (None if empty) FINDINGS: LUNGS/ PLEURA: The previously seen 5 mm nodule in the right upper lobe is less conspicuous on today's exam with a less dense appearance and measuring 3 to 4 mm. Additional tiny 1 mm nodules are noted in the right upper lobe which appear to be stable. Redemonstrated are postsurgical changes from a previ ous left upper lobe wedge resection. There is no focal mass or discrete nodularity noted along the norris rgical site. No focal consolidations, pleural effusions or pneumothorax. Mild centrilobular emphysem atous changes. AIRWAY: Patent and unremarkable. HEART: Size within normal limits.Mild coronary artery atherosclerosis present MEDIASTINUM: Few nonenlarged lymph nodes are seen with no gross evidence of adenopathy. VASCULATURE: No aortic aneurysm. MUSCULOSKELETAL: No acute osseous abnormalities SOFT TISSUES/LYMPH NODES: Unremarkable. LOWER NECK: No significant findings. UPPER ABDOMEN: Small hyperenhancing area noted in the capsular region and liver dome likely perfusion al and related to phase of contrast. IMPRESSION: 1. Previously noted 5 mm nodule in the right upper lobe is less conspicuous on today's exam and is sl ightly smaller in size. Continued attention on follow-up. No new suspicious pulmonary masses or nodul es. 2. Redemonstrated postsurgical changes from a left upper lobe resection. 3. Mild emphysema. 4. Hyperenhancing area noted in the liver dome may relate to perfusional changes or phase of contrast . This can be further characterized with a dedicated CT abdomen liver mass protocol on a nonemergent basis if clinically warranted. [facility], , 02/03/2025 3:19 PM
== END | disposition home or self-care (01) ==
LOC: RADCTMAIN 13:24
PROVIDERS: ATTEND Internal Medicine
DX: C34.12 Malignant neoplasm of upper lobe, left bronchus or lung (principal); D64.9 Anemia, unspecified; J43.9 Emphysema, unspecified; R91.1 Solitary pulmonary nodule
CPT/HCPCS: 82565; 84520; 71260; 36415; Q9967